=== PATIENT | female | born 1955 | race Caucasian/White ===

== ENCOUNTER 2017-02-09 18:48 | Inpatient (IN) ==
[~2017-02-09 18:48] MED LIST: *HR* Propofol 200 MG/20 ML VIAL IVP ONE
[2017-02-09] MEDS ORDERED: D5% in Water 1,000 ML IVC PRN (21:19)
[2017-02-09] MEDS ORDERED: Naloxone 0.4 MG/ML INJ IVP PRN (21:19)
[2017-02-09] MEDS ORDERED: Albuterol 2.5 MG/3 ML NEBULIZER IH PRN (21:19)
[2017-02-09] MEDS ORDERED: Ondansetron 4 MG/2 ML VIAL IVP PRN (21:19)
[2017-02-09] MEDS ORDERED: Dextrose Gel 15 GM PO PRN ×2 (21:19)
[2017-02-09] MEDS ORDERED: *HR* Dextrose 50 % in Water (Syg) 50 ML SYRINGE IVP PRN (21:19)
[2017-02-09 21:31] LABS: Hematocrit 29.8 % (35.3-44.9); Hemoglobin 9.5 g/dL (11.5-15.4); Immature Platelets 5.2 % (1.1-6.1); Mean Corpuscular HGB Conc 31.9 g/dL (31.6-35.5); Mean Corpuscular Hemoglobin 28.2 pg (28.0-33.3); Mean Corpuscular Volume 88.4 fL (83.0-100.0); Platelet Count 244 K/mcL (140-400); Red Blood Count 3.37 M/mcL (3.82-4.97); Red Cell Distribution Width 12.8 % (11.5-14.5)
[2017-02-09 21:42] LABS: Calcium 9.6 mg/dL (8.6-10.8); Potassium 4.8 mEq/L (3.5-4.5)
[2017-02-09 21:49] LABS: INR 1.4
[2017-02-09] MEDS ORDERED: Levofloxacin 750 MG/150 ML 750 MG/150 ML BAG IVPB SCH (22:00)
--- NOTE | 2017-02-09 22:17 | Internal Med History&Physical ---
Date of Encounter: 02/09/17 Time of Encounter: 21:00 Assessment and Plan (1) UGI bleed Current visit: Yes Status: Acute 1. Will trend hemoglobin levels and type/cross and hold 2 units PRBC's. 2[address] Will place on Protonix drip and keep npo. 3. Consult Dr. Casey for probable EGD -- notified. (2) Pneumonia Current visit: Yes Status: Acute 1. Patient will be placed on Levaquin for pneumonia. 2. Blood cultures drawn. 3. Respiratory support with oxygen and aerosols PRN. Qualifiers: Pneumonia type: due to unspecified organism Laterality: right Lung location: lower lobe of lung Qualified Code(s): J18.1 - Lobar pneumonia, unspecified organism (3) Acute kidney injury superimposed on CKD Current visit: Yes Status: Acute 1. Will hydrate with IVF and monitor renal function. 2. Consult nephrology for assistance and monitoring. Pt follow with Dr. Mcdonough. (4) Elevated troponin Current visit: Yes Status: Acute 1. Likely due to demand ischemia from GI blood loss. 2. We have no medication home list from patient and she is unaware of her home meds. 3. Resume home meds when verified, as appropriate, and when stable from a GI bleed standpoint. 4. Will cycle troponins, EKGs, and obtain ECHO. 5. Will monitor on telemetry. 6. Will transfuse with PRBC's if she develops angina. (5) Hypertension, uncontrolled Current visit: Yes Status: Acute 1. Will use PRN Hydralazine and monitor closely. 2. No long acting medications for now due to GI bleed and need to maintain hemodynamic stability. 3. Will need to verify home meds in the morning. (6) DVT prophylaxis Current visit: Yes Status: Acute 1. EPCD's. 2. No anti-coagulation due to GI bleed. Internal Medicine - H&P: HPI Chief complaint: chest pain; vomiting blood Admitted From: Hospital to Hospital Transfer Plans for Post Hospital Care: Home History of present illness: Ms. Calvillo is a 61 year old female who presents in transfer from [facility] in [place]. She presented there to the ER with complaints of coffee- ground emesis, chest pain, shortness of breath, and GI upset. She was found to have gastric occult positive emesis and Hemoccult positive stool. She also had troponin elevation and uncontrolled hypertension as well. Blood pressure was in excess of 200 systolic. She received Nitropaste and pain control and her blood pressure improved to 150 systolic. Once she arrived to the floor, I was summoned to her bedside immediately by her nurse. Upon my assessment of the patient, she complains of right-sided chest pain with deep inspiration and coughing. She admits to having 4 episodes of coffee- ground emesis today. She actually has dried blood around her mouth and tongue. She denies any prior history of stomach or duodenal ulcers. She does have a history of coronary disease and had a CABG about 6-7 years ago. She is a heavy smoker, but she denies any history of COPD. She has had some chills and fevers the last few days associated with her coughing and shortness of breath. She denies any vomiting or diarrhea other than her coffee-ground emesis today. I reviewed her records from [facility] and her laboratory data summarized below. Past Med Surg Social Fam HX - Past Medical History Attestation: Yes The following information was validated with the patient. Source: patient, old records reviewed Medical history: arthritis, atrial fibrillation, cancer, CHF, coronary artery disease, diabetes, GI bleed, hypertension, myocardial infarction, osteoporosis, renal disease Psychiatric history: no psych history - Past Surgical History Surgical History: cholecystectomy, coronary bypass (CABG) - Social History Smoking Status: Current every day smoker Packs per day: 1 Smokeless Tobacco Status: No Alcohol use: none Drug use: none Current living situation: Home Activity Level: Independent ambulation - Family History Mother History Unknown: Yes Father History Unknown: Yes Internal Medicine - H&P: Meds Allergies Penicillins Adverse Reaction (Severe, Verified 02/09/17 20:52) See Comments Lips swelling - Constitutional Constitutional: chills, fever(s), no night sweats - EENT Eyes: no blurry vision, no change in vision Ears: no ear pain, no tinnitus Nose, mouth and throat: no nasal congestion, no sinus pressure, no sore throat - Cardiovascular Cardiovascular ROS IM: chest pain, dyspnea, no edema, no orthopnea, no palpitations, no syncope - Respiratory Respiratory: cough, dyspnea, wheezing, pain on inspiration, chest congestion - Gastrointestinal Gastrointestinal: abdominal pain, coffee ground emesis, nausea, vomiting, no diarrhea, no hematemesis, no hematochezia, no melena - Genitourinary Genitourinary: no dysuria, no flank pain, no hematuria - Musculoskeletal Musculoskeletal ROS IM: no arthralgias, no back pain - Integumentary Integumentary IM: no rash, no jaundice - Neurological Neurological ROS: weakness, no dizziness, no focal weakness, no frequent falls - Psychiatric Psychiatric: no anxiety, no depression - Endocrine Endocrine IM: no polydipsia, no polyuria - Hematologic/Lymphatic Hematologic/Lymphatic: easy bruising, no lymphadenopathy - Allergic/Immunologic Allergic/Immunologic: wheezing, GI upset with certain foods - Constitutional General appearance: Present: disheveled, mild distress, A&O X 3 - Head Head exam: Present: atraumatic, normal inspection - Expanded Head Exam Head exam expanded: Absent: abrasion, contusion, general tenderness - Eye Eye exam: Present: EOMI, normal appearance, PERRL. Absent: scleral icterus Pupils: Present: normal accommodation - ENT ENT exam: Present: mucous membranes dry, normal oropharynx Additional comments: dried (dark) blood around blood and tongue - Neck Neck exam general surgery: Present: full ROM, supple. Absent: lymphadenopathy, tenderness, nuchal rigidity - Respiratory Respiratory exam: Present: accessory muscle use, rales (right base ), respiratory distress (splinting wiht deep inspiration), wheezes, tachypnea. Absent: chest wall tenderness - Cardiovascular Cardiovascular exam: Present: RRR, +S1, +S2, tachycardia. Absent: diastolic murmur, JVD, systolic murmur - GI/Abdominal GI/Abdominal exam: Present: soft, tenderness (mild epigastric), no peritoneal signs. Absent: guarding, hepatomegaly, mass, rebound, splenomegaly - Extremities Exam Extremities exam: Present: full ROM, warm, radial pulses palpable and symetrical. Absent: calf tenderness, joint swelling - Back Exam Back exam: Present: normal inspection. Absent: CVA tenderness (L), CVA tenderness (R) - Neurological Exam Neurological exam: Present: alert, CN II-XII intact, oriented X3, no focal deficits - Psychiatric Psychiatric exam: Present: flat affect. Absent: anxious - Skin Skin exam: Present: dry, warm. Absent: rash Additional comments: poor skin turgor Internal Med - H&P Results - Labs CBC & Chem 7: 02/09/17 21:13 02/09/17 21:13 Labs: Short CBC 02/09/17 Range/Units 21:13 WBC 12.4 H (4.3-11.1) K/mcL Hgb 9.5 L (11.5-15.4) g/dL Hct 29.8 L (35.3-44.9) % Plt Count 244 (140-400) K/mcL BMP 02/09/17 21:13 Sodium 137 Potassium 4.8 H Chloride 103 Carbon Dioxide 20 BUN 77 H Creatinine 3.59 H Glucose 263 H Calcium 9.6 Cardiac Enzymes 02/09/17 Range/Units 21:13 Troponin I 0.13 H* (0-0.03) ng/mL - EKG Data -: EKG Interpreted by Myself EKG shows normal: sinus rhythm Rate: tachycardia - EKG Data Prior EKG available for review: no EKG comments: 02/10/17 00:[address]-T changes inferiorly and high voltage with borderline criteria for LVH - Diagnostic Studies Chest x-ray Additional comments: Report reviewed from [facility] -- RLL infiltrate
[2017-02-09 22:23] LABS: Lymphocytes # 0.5 K/mcL (0.6-4.6); Neutrophils # 10.4 K/mcL (1.6-8.9); Platelet Estimate Normal (Normal)
[2017-02-09] MEDS: Ipratropium/Albuterol Neb 3 ML IH SCH (22:25)
[2017-02-09] MEDS ORDERED: Pantoprazole 40 MG VIAL ONE (22:32)
[2017-02-09] MEDS: 0.9 % Sodium Chloride 1,000 ML IVC SCH (22:42)
[2017-02-09] MEDS: Pantoprazole 40 MG in 0.9 % Sodium Chloride Mini Bag 100 ML IVC SCH (22:57)
[2017-02-09] MEDS ORDERED: 0.9 % Sodium Chloride 1,000 ML IVC ONE (23:43)
[2017-02-10] MEDS ORDERED: Magnesium Sulfate 2 GM in D5% in Water 100 ML IVPB ONE (03:56)
[2017-02-10] MEDS: Ipratropium/Albuterol Neb 3 ML IH SCH ×4 (04:30→20:43)
[2017-02-10] MEDS: Insulin LISPRO 300 UNITS/3 ML VIAL SQ SCH ×4 (04:35→20:02)
[2017-02-10] MEDS: Pantoprazole 40 MG in 0.9 % Sodium Chloride Mini Bag 100 ML IVC SCH ×4 (05:50→21:37)
[2017-02-10 06:46] LABS: Hematocrit 22.5 % (35.3-44.9); Immature Platelets 4.7 % (1.1-6.1); Lymphocytes # 0.7 K/mcL (0.6-4.6); Mean Corpuscular Hemoglobin 28.3 pg (28.0-33.3); Mean Corpuscular Volume 88.6 fL (83.0-100.0); Mean Platelet Volume 11.6 fL (9.4-12.4); Platelet Count 198 K/mcL (140-400); Red Blood Count 2.54 M/mcL (3.82-4.97); Red Cell Distribution Width 12.9 % (11.5-14.5)
[2017-02-10] MEDS: 0.9 % Sodium Chloride 1,000 ML IVC SCH ×2 (06:46→15:26)
[2017-02-10 07:09] LABS: Albumin 2.1 g/dL (3.5-5.0); Albumin/Globulin Ratio 0.5 (1.1-2.2); Bilirubin,Total 0.4 mg/dL (0.2-1.2); Calcium 9.2 mg/dL (8.6-10.8); Chol/HDL Ratio 3.6 (0-4.9); Globulin 4.1 g/dL (2.4-3.5); Magnesium 2.5 mg/dL (1.6-2.6); Potassium 4.9 mEq/L (3.5-4.5); Total Protein 6.2 g/dL (6.0-8.3)
[2017-02-10 07:21] LABS: Hemoglobin 7.2 g/dL (11.5-15.4)
[2017-02-10 07:28] LABS: Monocytes # 0.2 K/mcL (0.0-1.3); Neutrophils # 10.3 K/mcL (1.6-8.9)
[2017-02-10 07:32] LABS: Platelet Estimate Normal (Normal)
[2017-02-10] MEDS: MetroNIDAZOLE 500 MG/100 ML 500 MG/100 ML BAG IVPB SCH ×2 (08:55→19:57)
[2017-02-10 12:48] LABS: Hematocrit 24.1 % (35.3-44.9); Hemoglobin 7.6 g/dL (11.5-15.4)
[2017-02-10] MEDS ORDERED: 0.9 % Sodium Chloride 500 ML ONE ×2 (13:58→18:12)
--- NOTE | 2017-02-10 14:59 | Internal Med Progress Note ---
Date of Encounter: 02/11/17 Time of Encounter: 14:58 - Assessment and plan (1) UGI bleed Current Visit: Yes Status: Acute Assessment and plan: Drop in Hb :9.5to 7.6 [facility] PPI Drip Transfuse 2 PRBC recheck labs in AM (2) Pneumonia Current Visit: Yes Status: Acute Assessment and plan: On levofloxacin Qualifiers: Pneumonia type: due to unspecified organism Laterality: right Lung location: lower lobe of lung Qualified Code(s): J18.1 - Lobar pneumonia, unspecified organism (3) Elevated troponin Current Visit: Yes Status: Acute Assessment and plan: likely demand ischimia (4) Acute kidney injury superimposed on CKD Current Visit: Yes Status: Acute Assessment and plan: dehydration - Subjective Interval history: Patient seen and examined. Chart reviewed. Patient is sitting comfortably in a chair. Patient is short of breath. - Constitutional Vitals: Temp Pulse Resp BP Pulse Ox 97.7 F 85 16 149/64 97 02/10/17 12:11 02/10/17 12:11 02/10/17 12:11 02/10/17 12:11 02/10/17 12:11 General appearance: Present: disheveled, mild distress, A&O X 3 - Head Head exam: Present: atraumatic, normocephalic - Eye Eye exam: Present: PERRL, conjuntiva pink, sclera anicteric Pupils: Present: PERRL - Neck Neck exam general surgery: Present: supple, trachea midline. Absent: lymphadenopathy - Respiratory Respiratory exam: Present: CTAB. Absent: accessory muscle use, rales, rhonchi, wheezes - Cardiovascular Cardiovascular exam: Present: RRR, +S1, +S2. Absent: diastolic murmur, gallop, rubs, systolic murmur - GI/Abdominal GI/Abdominal exam: Present: normal bowel sounds, soft, no peritoneal signs. Absent: distended, tenderness - Extremities Exam Extremities exam: Present: warm, radial pulses palpable and symetrical. Absent : calf tenderness, cyanotic, pedal edema - Neurological Exam Neurological exam: Present: CN II-XII intact, oriented X3, no focal deficits. Absent: pronater drift, facial droop, speech deficit - Skin Skin exam: Present: dry, intact Internal Medicine: Result - Labs CBC & Chem 7: 02/11/17 03:52 02/11/17 03:52 Labs: Short CBC 02/09/17 02/10/17 02/10/17 Range/Units 21:13 05:45 12:28 WBC 12.4 H 11.7 H (4.3-11.1) K/mcL Hgb 9.5 L 7.2 L D 7.6 L (11.5-15.4) g/dL Hct 29.8 L 22.5 L 24.1 L (35.3-44.9) % Plt Count 244 198 (140-400) K/mcL Neutrophils # 10.4 H 10.3 H (1.6-8.9) K/mcL BMP 02/09/17 02/10/17 21:13 05:45 Sodium 137 137 Potassium 4.8 H 4.9 H Chloride 103 109 Carbon Dioxide 20 15 L BUN 77 H 81 H Creatinine 3.59 H 3.66 H Glucose 263 H 270 H Calcium 9.6 9.2 Cardiac Enzymes 02/09/17 02/10/17 02/10/17 Range/Units 21:13 05:45 12:05 Troponin I 0.13 H* 0.10 H* 0.11 H* (0-0.03) ng/mL Liver Function 02/10/17 Range/Units 05:45 Total Bilirubin 0.4 (0.2-1.2) mg/dL AST 11 (5-34) Units/L ALT 7 (0-55) Units/L Alkaline Phosphatase 54 (38-126) Units/L Albumin 2.1 L (3.5-5.0) g/dL - ABG Interpretation ABG results: PT/INR, D-dimer PT 15.0 Seconds (9.4-12.1) H 02/09/17 21:13 Consult Discharge Plan - Plan Referrals: NO,PCP [Primary Care Provider] -
--- NOTE | 2017-02-10 16:59 | ECHO - Doppler Report ---
Echocardiogram Name: Shahida Calvillo Date of Study: 02/10/2017 Date: 1955 Ht: 62.0 in Medical Record#: [id number] Age: 61 Wt: 162.0 lb Gender: Female BSA: 1.75 Order #: [id number] Location: [facility] Room #: 2NE23 Reading Physician: Ramy Parrish DO, MONSERRAT, DIEGO SONI Assistant Corporate Secretary: Yelena Banuelos RDCS Ordering Physician: Breezy Calix MD Primary Physician: None Indications: Chest pain Impressions: LVEF 55-60%. Normal LV chamber size and wall thickness. Basal inferior segment appears mildly hypokinetic. Otherwise, normal LV systolic dysfunction. Atypical septal motion consistent with post-operative status. Moderate left ventricular diastolic dysfunction. Normal right ventricular structure and function. Mild-moderate mitral regurgitation. No evidence of pulmonary hypertension. Left Ventricular Wall Motion: Rest Echo Findings The basal inferior wall was hypokinetic. All other wall segments showed normal motion. Findings: Study Quality * Technically adequate exam. ECG Findings * Normal sinus rhythm. Left Ventricle * LVEF 55-60%. * Normal LV chamber size and wall thickness. * Basal inferior segment appears mildly hypokinetic. Otherwise, normal LV systolic dysfunction. * Atypical septal motion consistent with post-operative status. * Moderate left ventricular diastolic dysfunction. Right Ventricle * Normal right ventricular structure and function. Left Atrium * Mildly dilated left atrium. Right Atrium * Normal right atrial size. Interatrial Septum * No evidence of PFO by color Doppler. Aortic Valve * Trileaflet aortic valve. * Mildly sclerotic aortic valve leaflets. * No aortic regurgitation. * No aortic stenosis. Mitral Valve * Mildly thickened mitral valve leaflets and subvalvular apparatus. * Mild-moderate mitral regurgitation. * No mitral stenosis. Tricuspid Valve * Normal tricuspid valve structure and function. * Trace tricuspid regurgitation. * No evidence of pulmonary hypertension. Pulmonic Valve * Normal pulmonic valve structure and function. * Trace pulmonic regurgitation. Aorta * Normally sized aortic root. Pericardium * The pericardium appears normal. IVC * Normal IVC dimensions and inspiratory collapse. Pulmonary Artery * Normal visualized portions of the main pulmonary artery. History Hypertension Diabetes Hypercholesteremia Years 33 Packs 1 Family History of CAD History of CAD/PTCA Myocardial Infarction Coronary Artery Bypass Graft Congestive Heart Failure Measurements: BP: 139/ 73 2D Normal Values RVIDd: 3.70 cm <2.7 cm IVSd: 1.00 cm 0.6 - 1.0 cm LVIDd: 5.50 cm 3.7 - 5.6 cm LVPWd: 1.10 cm 0.6 - 1.1 cm LVIDs: 4.20 cm 1.5 - 3.6 cm AO: 2.70 cm < 4.0 cm LA: 4.10 cm 2.0 - 4.0cm %FS: 23.60 cm >25 % LVOT Diam: 2.00 cm LA volume: 48 Mitral Valve Peak E:1.25 m/sec Peak A:.99 m/sec E/A Ratio:1.3 Peak E' Lat Camron:6.59 cm/s Peak E' Med Camron:5 cm/s E/E' Lat Ratio:19 E/E' Med Ratio:25 Tricuspid Valve TV Regurg Peak Grad: 28.00mmHg TV Regurg Peak Camron: 2.66m/sec Updated by Ramy Parrish DO, FACChristopher, DIEGO SONI on 02/10/2017 4:55:43 PM electronically signed on 02/10/2017 4:56:04 PM with status of Final Wall Motion [place]: 1=Normal, 2=Hypokinesis, 3=Akinesis, 4=Dyskinesis, 5=Aneurysmal, 6=Hyperkinetic, X=Not Visualized (Blank)=Missing
[2017-02-11] MEDS: *HR* Morphine 2 MG/ML SYRINGE IVP PRN ×3 (00:08→14:14)
[2017-02-11] MEDS: MetroNIDAZOLE 500 MG/100 ML 500 MG/100 ML BAG IVPB SCH ×3 (00:09→17:49)
[2017-02-11] MEDS: Pantoprazole 40 MG in 0.9 % Sodium Chloride Mini Bag 100 ML IVC SCH ×4 (00:24→20:36)
[2017-02-11] MEDS: Insulin LISPRO 300 UNITS/3 ML VIAL SQ SCH ×4 (00:25→17:58)
[2017-02-11] MEDS: 0.9 % Sodium Chloride 1,000 ML IVC SCH ×2 (03:35→17:51)
[2017-02-11] MEDS: Ipratropium/Albuterol Neb 3 ML IH SCH ×4 (03:59→22:47)
[2017-02-11 04:50] LABS: Hematocrit 33.7 % (35.3-44.9); Mean Corpuscular HGB Conc 31.5 g/dL (31.6-35.5); Mean Corpuscular Hemoglobin 27.6 pg (28.0-33.3); Mean Corpuscular Volume 87.8 fL (83.0-100.0); Mean Platelet Volume 11.2 fL (9.4-12.4); Platelet Count 224 K/mcL (140-400); Red Blood Count 3.84 M/mcL (3.82-4.97); Red Cell Distribution Width 13.4 % (11.5-14.5)
[2017-02-11 05:07] LABS: Albumin 2.2 g/dL (3.5-5.0); Albumin/Globulin Ratio 0.5 (1.1-2.2); Bilirubin,Total 0.6 mg/dL (0.2-1.2); Calcium 9.6 mg/dL (8.6-10.8); Globulin 4.5 g/dL (2.4-3.5); Potassium 5.2 mEq/L (3.5-4.5); Total Protein 6.7 g/dL (6.0-8.3)
[2017-02-11 05:14] LABS: Hemoglobin 10.6 g/dL (11.5-15.4)
[2017-02-11 05:19] LABS: Lymphocytes # 1.4 K/mcL (0.6-4.6); Monocytes # 0.8 K/mcL (0.0-1.3); Platelet Estimate Normal (Normal)
[2017-02-11] MEDS ORDERED: Levofloxacin 750 MG/150 ML 750 MG/150 ML BAG IVPB SCH ×2 (09:00→22:00)
--- NOTE | 2017-02-11 09:26 | Electrocardiograph Report ---
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
--- NOTE | 2017-02-11 09:29 | Electrocardiograph Report ---
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
--- NOTE | 2017-02-11 11:19 | Gastroenterology Consult Note ---
<Kamla Redd - Last Filed: 02/11/17 11:16> Date of Encounter: 02/11/17 Time of Encounter: 10:30 - Assessment and plan (1) UGI bleed Current Visit: Yes Status: Acute Assessment and plan: EGD today to r/o esophagitis, gastritis, duodenitis, MW tear, PUD, tumor, polyp , varices. Continue PPI gtt. (2) Elevated troponin Current Visit: Yes Status: Acute - Time Spent With Patient Total time spent is greater than 50% in coordination of care (as documented) at patient's floor/unit and/or counseling patient: less than 15 minutes GI History of Present Illness - Data of Consult Patient: new to practice Consult date: 02/11/17 Requesting Physician: Alec Hassan MD - Consult Narrative Reason for consult: coffee ground emesis, anemia History of present illness: Ms. Calvillo is a 61 year old female with a PMH of a fib, CAD, MS, CABG, CHF, CKD, HTN who presented overnight in transfer from [facility] in [place]. She presented there to the ER with complaints of coffee-ground emesis, chest pain, shortness of breath, and GI upset. She was found to have gastric occult positive emesis and Hemoccult positive stool. She also had troponin elevation and uncontrolled hypertension as well. Blood pressure was in excess of 200 systolic. She received Nitropaste and pain control and her blood pressure improved to 150 systolic. Admits four episodes of coffeeground emesis yesterday , none since she was admitted. Symptoms began Saturday morning with weakness, vomiting and diarrhea. Prior to that her BM was regular, daily, but her appetite has been slightly off. She reached a low hgb of 7.2, received 2 units PRBC, currently at 10.6. She has elevated troponin level which hospitalist indicates likely demand ischemia. Edema in upper and lower extremities. Patient was asked about prior Cscope, EGD - she states never had same and adamantly indicates she does NOT want a colonoscopy. Colonoscopy: None EGD: None Past Med Surg Social Fam HX - Past Medical History Medical history: arthritis, atrial fibrillation, cancer, CHF, coronary artery disease, diabetes, GI bleed, hypertension, myocardial infarction, osteoporosis, renal disease Psychiatric history: no psych history - Past Surgical History Surgical History: cholecystectomy, coronary bypass (CABG) - Social History Smoking Status: Current every day smoker Packs per day: 1 Smokeless Tobacco Status: No Alcohol use: none Drug use: none - Family History Mother History Unknown: Yes Father History Unknown: Yes - Gastrointestinal NSAID use: baby asa Anticoagulation Use: None noted Number of BM Per Day: daily Gastrointestinal: Present: change in bowel habits, coffee ground emesis, diarrhea, nausea, vomiting - Constitutional Constitutional: anorexia - EENT Eyes: as per HPI Ears: Present: as per HPI Nose, mouth and throat: Present: as per HPI - Cardiovascular Cardiovascular ROS: Present: as per HPI - Respiratory Respiratory IM: Present: as per HPI - Neurological ROS Neurological GI: Present: weakness - Hematologic/Lymphatic Hematologic/Lymphatic pediatric: Present: as per HPI - Musculoskeletal Musculoskeletal ROS GI: Present: as per HPI - Integumentary Integumentary GI: Present: as per HPI - Psychiatric ROS Psychiatric GI: Present: as per HPI - Endocrine Endocrine IM: Present: as per HPI - Constitutional Vitals: Temp Pulse Resp BP Pulse Ox 97.5 F L 122 16 154/88 95 02/11/17 07:00 02/11/17 07:00 02/11/17 10:53 02/11/17 07:00 02/11/17 10:53 General appearance: Present: cooperative, A&O X 3, no acute distress, answers questions appropriately - Head Head exam: Present: atraumatic, normocephalic - Eye Eye exam: Present: normal appearance, sclera anicteric - ENT ENT exam: Present: mucous membranes moist - Neck Neck exam general surgery: Present: normal inspection, trachea midline - Respiratory Respiratory exam: Present: CTAB - Cardiovascular Cardiovascular exam: Present: RRR, +S1, +S2 - GI/Abdominal GI/Abdominal exam: Present: soft, tenderness, no peritoneal signs - Rectal Rectal exam: Present: deferred - Extremities Exam Extremities exam: Present: joint swelling, pedal edema - Neurological Exam Neurological exam: Present: no focal deficits - Psychiatric Psychiatric exam: Present: normal affect, normal mood - Skin Skin exam: Present: dry, intact, normal color, warm Results - Labs CBC & Chem 7: 02/11/17 03:52 02/11/17 03:52 Labs: Last Result Calcium 9.6 mg/dL (8.6-10.8) 02/11/17 03:52 Troponin I 0.11 ng/mL (0-0.03) H* 02/10/17 12:05 Triglycerides 81 mg/dL (< 150) 02/10/17 05:45 Entire Visit Hgb 10.6 g/dL (11.5-15.4) L D 02/11/17 03:52 Hct 33.7 % (35.3-44.9) L 02/11/17 03:52 PT 15.0 Seconds (9.4-12.1) H 02/09/17 21:13 Total Bilirubin 0.6 mg/dL (0.2-1.2) 02/11/17 03:52 AST 19 Units/L (5-34) 02/11/17 03:52 ALT 10 Units/L (0-55) 02/11/17 03:52 - ABG ABG results: PT/INR, D-dimer PT 15.0 Seconds (9.4-12.1) H 02/09/17 21:13 Consult Discharge Plan - Plan Referrals: NO,PCP [Primary Care Provider] - <Miles Melvin - Last Filed: 02/11/17 17:16> Date of Encounter: 02/11/17 Time of Encounter: 13:00 - Time Spent With Patient Total time spent is greater than 50% in coordination of care (as documented) at patient's floor/unit and/or counseling patient: GI History of Present Illness - Data of Consult Requesting Physician: Alec Hassan MD - Consult Narrative History of present illness: Ms. Calvillo is a 61 year old female - Constitutional Vitals: Temp Pulse Resp BP Pulse Ox 97.5 F L 96 18 152/87 95 02/11/17 15:00 02/11/17 15:00 02/11/17 15:00 02/11/17 15:00 02/11/17 15:00 Results - Labs CBC & Chem 7: 02/11/17 03:52 02/11/17 03:52 Labs: Last Result Calcium 9.6 mg/dL (8.6-10.8) 02/11/17 03:52 Iron 9 mcg/dL (50-170) L 02/09/17 21:13 % Saturation 3 % (15-50) L 02/09/17 21:13 Transferrin 205 mg/dL (180-382) 02/09/17 21:13 Troponin I 0.11 ng/mL (0-0.03) H* 02/10/17 12:05 Triglycerides 81 mg/dL (< 150) 02/10/17 05:45 Entire Visit Hgb 10.6 g/dL (11.5-15.4) L D 02/11/17 03:52 Hct 33.7 % (35.3-44.9) L 02/11/17 03:52 PT 15.0 Seconds (9.4-12.1) H 02/09/17 21:13 Total Bilirubin 0.6 mg/dL (0.2-1.2) 02/11/17 03:52 AST 19 Units/L (5-34) 02/11/17 03:52 ALT 10 Units/L (0-55) 02/11/17 03:52 - ABG ABG results: PT/INR, D-dimer PT 15.0 Seconds (9.4-12.1) H 02/09/17 21:13 - Attending Attestation I examined this patient and my medical decision-making was reviewed with the WEB DATABASE DEVELOPER/PA/Advanced Practice Nurse/Resident Physician. I agree with the documented findings, disposition and treatment plan as described except to the extent set forth below.
--- NOTE | 2017-02-11 12:31 | Anesthesia Evaluation PreOp ---
Date of Encounter: 02/11/17 Time of Encounter: 12:28 - Past History Planned Operation: EGD re: admission for UGI bleed & CP Cardiac History: PA (Troponin bump to 0.11 this hospitalization beleived to be secondary to Demand Ischemia from GIB), CHF (maintained on Lasix), HTN ( maintained on Cozaar, Carvedilol), Hyperlipidemia (maintained on Crestor), Arrhythmia (Hx of paroxysmal AFib - currently AFib w/RVR. Anticoagulated w/ASA) , Cardiac Surgery (CABG), Other (02/09/2017 ECHO - LVEF 55-60%. Mildly hypokinetic vasal inferior segment, atypical septal motion c/w post-op status. Mild-mod MR. No evidence fo PulmHtn) Pulmonary History: Smoker (1ppd x 45years), COPD, Other (Recent Pneumonia this admission) PROFESSOR OF PHILOSOPHY History: Denies Any Significant HX Other Medical History: Renal (Acute on Chronic CKD), Diabetes Type II ( maintained on Tradjenta, Actos, and possibly others), Other (Hx of Cancer) Anesthesia History: No Prior Anesthetic Complications, Past Anesthesia (CABG, Brittani) Alcohol Use: none Drug use: none Medications and Allergies Aspirin Enteric Coated [Aspirin EC] 81 mg PO DAILY 02/10/17 [History] Calcitriol [Rocaltrol] 0.25 mcg PO DAILY 02/10/17 [History] Carvedilol [Coreg] 25 mg PO DAILY 02/10/17 [History] Cyanocobalamin (Vitamin B-12) [Vitamin B-12] 100 mcg PO DAILY 02/10/17 [History] Ergocalciferol (VITAMIN D2) [Vitamin D] 800 unit PO DAILY 02/10/17 [History] Furosemide [Lasix] 20 mg PO BID 02/10/17 [History] Linagliptin [Tradjenta] 5 mg PO DAILY 02/10/17 [History] Losartan Potassium [Cozaar] 100 mg PO DAILY 02/10/17 [History] Pioglitazone [Actos] 15 mg PO 0800 02/10/17 [History] Rosuvastatin Calcium [Crestor] 5 mg PO HS 02/10/17 [History] Allergies Penicillins Adverse Reaction (Severe, Verified 02/09/17 20:52) See Comments Lips swelling - Meds/Allergy Pre-op Review Medications Reviewed: Yes Allergies Reviewed: Yes Beta Blockers on Current Med List: Yes (Metoprolol) If Beta Blockers taken, Date/Time (Last Dose taken): 02/11/2017 @ 0746 Anesthesia Results - Labs 02/11/17 03:52 02/11/17 03:52 Laboratory Tests 02/09/17 02/09/17 02/09/17 21:13 21:13 21:13 PT 15.0 H INR 1.4 APTT 27.0 POC Glucose Calcium Magnesium Iron 9 L % Saturation 3 L Troponin I 0.13 H* 02/10/17 02/10/17 02/11/17 05:45 05:45 03:52 PT INR APTT POC Glucose Calcium 9.6 Magnesium 2.5 Iron % Saturation Troponin I 0.10 H* 02/11/17 05:50 PT INR APTT POC Glucose 152 H Calcium Magnesium Iron % Saturation Troponin I Laboratory Results - Imaging EKG: image reviewed Anesthesia Exam Vital Signs Temp Pulse Resp BP Pulse Ox 02/11/17 10:53 16 95 02/11/17 07:00 97.5 F L 122 16 154/88 98 02/11/17 04:01 20 02/11/17 03:00 98.6 F 118 20 141/96 96 02/10/17 20:45 18 99 02/10/17 19:30 100 02/10/17 18:56 97.8 F 86 14 153/70 100 02/10/17 18:39 97.6 F 89 14 161/71 96 02/10/17 18:37 97.6 F 89 14 161/71 95 02/10/17 18:26 97.4 F L 86 14 152/70 96 02/10/17 18:11 97.4 F L 86 14 152/70 96 02/10/17 16:20 97.2 F L 80 136/68 97 02/10/17 15:59 98.7 F 83 16 151/68 96 02/10/17 15:53 18 97 02/10/17 15:20 97.0 F L 79 14 144/82 02/10/17 15:05 97.6 F 89 14 138/61 Intake and Output 02/10/17 02/11/17 02/11/17 23:59 07:59 15:59 Intake Total 1900 / 1900 200 / 200 Output Total 400 / 400 500 / 500 Balance 1500 / 1500 -300 / -300 Intake: IV Fluids 1200 / 1200 200 / 200 0.9 % Sodium Chloride 1, 1000 / 1000 000 ML @ 150 mls/hr IVC . Q6H40M DIANE Rx#:[id number] Protonix 40 MG In 0.9 % 100 / 100 100 / 100 Sodium Chloride (Mini-Bag +) 100 ML @ 20 mls/hr IVC .Q5H DIANE Rx#: [id number] Flagyl 500 MG/100 ML 500 100 / 100 100 / 100 mg In 100 ml @ 100 mls/hr IVPB Q8HR DIANE Rx#: [id number] Oral 0 / 0 Blood Product 700 / 700 Rbcs Leuko Poor As-1 350 / 350 Unit [id number] Rbcs Leuko Poor As-1 350 / 350 Unit [id number] Output: Catheter 400 / 400 500 / 500 Other: Weight 74.9 kg Blood Glucose* 189 152 138 Patient Weight 02/11/17 23:59 Weight 74.9 kg Height: 5'2" Weight: 165# BMI = 30 NPO (# of Hours): MNoc - HEENT Pupil (Motor): Pupils equal, EOMI Mallampati: III Teeth: Edentulous (upper. Dark dried blood noted on mucosal surfaces), Poor dentition Oral Opening: Greater than 3 - PROFESSOR OF PHILOSOPHY LOC: Oriented PROFESSOR OF PHILOSOPHY Motor: Normal RUE, Normal LUE, Normal RLE, Normal LLE, Normal Face PROFESSOR OF PHILOSOPHY Sensory: Normal: RUE, LUE, RLE, LLE, Face - Cardiac Rhythm: Irregular JVD: No - Pulmonary Breath Sounds: bilateral Clear (faint inspiratory/exportary crackles and diminished B-bases) Respiratory Effort: Symmetrical Anesthesia Assess/Plan ASA Score: 4 (GIB, CAD, HTN, Chol, Smoker, COPD, DM, Acute on Chronic CKD) Monitoring Plan: Standard Monitors Recovery Plan: PACU Anes Supervising Prov Stmt: Pt seen/evaluated, R&B discussed, questions answered and consent obtained. Adrian Groves MD
[2017-02-11] MEDS ORDERED: *HR* Labetalol 20 MG/4 ML SYRINGE IVP ONE ×2 (12:49→12:53)
[2017-02-11] MEDS ORDERED: Simethicone 40 MG/0.6 ML MLS IR ONE (13:10)
[2017-02-11] MEDS ORDERED: Tetracaine/Benzocaine/Butamben 200MG/SPRAY (100SPY/BOT) MM ONE (13:10)
--- NOTE | 2017-02-11 16:37 | Internal Med Progress Note ---
Date of Encounter: 02/11/17 Time of Encounter: 16:34 - Assessment and plan (1) UGI bleed Current Visit: Yes Status: Acute Assessment and plan: Drop in Hb :9.5to 7.6 Endoscopist notified by night team On PPI Drip Transfuse 2 PRBC recheck labs in AM 02/11/2017 Patient underwent EGD. Motor the patient has multiple ulcers. Patient is on PPI drip. Patient is on appropriate medication. Plan -We will continue to monitor her hemoglobin/hematocrit. -Patient did not have of every 6 hours. (2) Atrial fibrillation with RVR Current Visit: Yes Status: Acute Assessment and plan: Good the patient is in rapid ventricular rate associated with the atrial fibrillation. She is on Cardizem drip. Her heart rate is well controlled. No anticoagulation as patient has coffee-ground emesis Plan Continue Cardizem drip. Titrated down. (3) Pneumonia Current Visit: Yes Status: Acute Assessment and plan: Noted that patient has a right lower lobe pneumonia. She is on levofloxacin. Today is day 2 of levofloxacin. Qualifiers: Pneumonia type: due to unspecified organism Laterality: right Lung location: lower lobe of lung Qualified Code(s): J18.1 - Lobar pneumonia, unspecified organism (4) Elevated troponin Current Visit: Yes Status: Acute Assessment and plan: likely demand ischimia (5) Acute kidney injury superimposed on CKD Current Visit: Yes Status: Acute Assessment and plan: Patient is known to have a chronic kidney disease. She received IV fluids. There is no change in her creatinine. I have informed patient's primary catalogue and special products manager Dr. Gonzalez - Subjective Interval history: Patient seen and examined. Chart reviewed. Patient is sitting comfortably in a chair. Patient is short of breath. 02/11/2017 Patient seen and examined. Chart reviewed. Patient sitting comfortably in chair. Patient underwent EGD. Patient denies any coffee-ground emesis. - Constitutional Vitals: Temp Pulse Resp BP Pulse Ox 97.5 F L 96 18 152/87 95 02/11/17 15:00 02/11/17 15:00 02/11/17 15:00 02/11/17 15:00 02/11/17 15:00 General appearance: Present: disheveled, mild distress, A&O X 3 - Head Head exam: Present: atraumatic, normocephalic - Eye Eye exam: Present: PERRL, conjuntiva pink, sclera anicteric Pupils: Present: PERRL - Neck Neck exam general surgery: Present: supple, trachea midline. Absent: lymphadenopathy - Respiratory Respiratory exam: Present: CTAB. Absent: accessory muscle use, rales, rhonchi, wheezes - Cardiovascular Cardiovascular exam: Present: RRR, +S1, +S2. Absent: diastolic murmur, gallop, rubs, systolic murmur - GI/Abdominal GI/Abdominal exam: Present: normal bowel sounds, soft, no peritoneal signs. Absent: distended, tenderness - Extremities Exam Extremities exam: Present: warm, radial pulses palpable and symetrical. Absent : calf tenderness, cyanotic, pedal edema - Neurological Exam Neurological exam: Present: CN II-XII intact, oriented X3, no focal deficits. Absent: pronater drift, facial droop, speech deficit - Skin Skin exam: Present: dry, intact Internal Medicine: Result - Labs CBC & Chem 7: 02/11/17 03:52 02/11/17 03:52 Labs: Short CBC 02/11/17 Range/Units 03:52 WBC 13.7 H (4.3-11.1) K/mcL Hgb 10.6 L D (11.5-15.4) g/dL Hct 33.7 L (35.3-44.9) % Plt Count 224 (140-400) K/mcL Neutrophils # 11.0 H (1.6-8.9) K/mcL BMP 02/11/17 03:52 Sodium 137 Potassium 5.2 H Chloride 109 Carbon Dioxide 14 L BUN 87 H Creatinine 3.45 H Glucose 142 H Calcium 9.6 Liver Function 02/11/17 Range/Units 03:52 Total Bilirubin 0.6 (0.2-1.2) mg/dL AST 19 (5-34) Units/L ALT 10 (0-55) Units/L Alkaline Phosphatase 70 (38-126) Units/L Albumin 2.2 L (3.5-5.0) g/dL - ABG Interpretation ABG results: PT/INR, D-dimer PT 15.0 Seconds (9.4-12.1) H 02/09/17 21:13 Consult Discharge Plan - Plan Referrals: NO,PCP [Primary Care Provider] -
[2017-02-12] MEDS: MetroNIDAZOLE 500 MG/100 ML 500 MG/100 ML BAG IVPB SCH ×2 (00:57→08:21)
[2017-02-12] MEDS: Pantoprazole 40 MG in 0.9 % Sodium Chloride Mini Bag 100 ML IVC SCH ×2 (00:58→06:10)
[2017-02-12] MEDS: Insulin LISPRO 300 UNITS/3 ML VIAL SQ SCH ×4 (01:04→21:48)
[2017-02-12] MEDS: Ipratropium/Albuterol Neb 3 ML IH SCH ×4 (04:01→21:17)
[2017-02-12 06:22] LABS: Hematocrit 35.2 % (35.3-44.9); Hemoglobin 11.4 g/dL (11.5-15.4); Mean Corpuscular HGB Conc 32.4 g/dL (31.6-35.5); Mean Corpuscular Hemoglobin 27.8 pg (28.0-33.3); Mean Corpuscular Volume 85.9 fL (83.0-100.0); Mean Platelet Volume 11.3 fL (9.4-12.4); Nucleated Red Blood Cells 0.1 /100 WBC (0); Platelet Count 192 K/mcL (140-400); Red Cell Distribution Width 13.8 % (11.5-14.5)
[2017-02-12 06:36] LABS: Albumin 2.1 g/dL (3.5-5.0); Albumin/Globulin Ratio 0.5 (1.1-2.2); Bilirubin,Total 0.6 mg/dL (0.2-1.2); Calcium 8.7 mg/dL (8.6-10.8); Globulin 4.1 g/dL (2.4-3.5); Total Protein 6.2 g/dL (6.0-8.3)
[2017-02-12 07:24] LABS: Lymphocytes # 0.8 K/mcL (0.6-4.6); Neutrophils # 14.9 K/mcL (1.6-8.9); Platelet Estimate Normal (Normal)
[2017-02-12 07:37] LABS: ABG Base Excess -11.8 mEq/L (-2.0 to 3.0); ABG HCO3 13.5 mEQ/L (21-27); ABG Oxygen Saturation 89 % (95-98); ABG PCO2 28 mmHg (35-45); ABG PH 7.29 pH Units (7.32-7.45); ABG PO2 63 mmHg (85-104); ABG TCO2 14.4 mEq/L (20-26)
[2017-02-12 07:38] LABS: Blood Gas FiO2 28 %
--- NOTE | 2017-02-12 08:23 | Nephrology Consult Note ---
Date of Encounter: 02/12/17 Time of Encounter: 08:20 Assessment and Plan (1) Acute kidney injury superimposed on CKD Current Visit: Yes Status: Acute The patient has a clinical picture of acute kidney injury superimposed on stage IV chronic kidney disease in the setting of an upper GI bleed and subsequent anemia. She also has had issues with atrial fibrillation with rapid ventricular response. Today her renal function is improving. She does exhibit a worsening non-anion gap metabolic acidosis. Etiology is unclear. Oral sodium bicarbonate has been ordered. We will place the patient on some IV sodium bicarbonate as well. I am going to recheck her bicarbonate level just to make sure that it is accurate. (2) UGI bleed Current Visit: Yes Status: Acute (3) Hypertension, uncontrolled Current Visit: Yes Status: Acute (4) Atrial fibrillation with RVR Current Visit: Yes Status: Acute History of Present Illness - History of Present Illness This is a 61-year-old female who is followed as an outpatient for stage IV chronic kidney disease. Patient was admitted on February 09 with an upper GI bleed. Hemoglobin was down to 7.6. She subsequently had acute kidney injury superimposed on chronic kidney disease. Her creatinine peaked at 3.662 days ago. Today her creatinine is down to 2.78. Patient reports overall she is feeling well. She denies any nausea vomiting abdominal pain heartburn or indigestion. History today she did have issues with A. fib with a rapid ventricular response. She currently is on a Cardizem drip and also a Protonix drip. She did undergo an EGD. Esophagus was normal. Nonbleeding gastric ulcers were noted. Hemoglobin currently is 11.4. She does have a worsening non -anion gap metabolic acidosis on her blood work today. Past Med Surg Social Fam HX - Past Medical History Medical history: arthritis, atrial fibrillation, cancer, CHF, coronary artery disease, diabetes, GI bleed, hypertension, myocardial infarction, osteoporosis, renal disease Psychiatric history: no psych history - Past Surgical History Surgical History: cholecystectomy, coronary bypass (CABG) - Social History Smoking Status: Current every day smoker Packs per day: 1 Smokeless Tobacco Status: No Alcohol use: none Drug use: none - Family History Mother History Unknown: Yes Father History Unknown: Yes Medications and Allergies Aspirin Enteric Coated [Aspirin EC] 81 mg PO DAILY 02/10/17 [History] Calcitriol [Rocaltrol] 0.25 mcg PO DAILY 02/10/17 [History] Carvedilol [Coreg] 25 mg PO DAILY 02/10/17 [History] Cyanocobalamin (Vitamin B-12) [Vitamin B-12] 100 mcg PO DAILY 02/10/17 [History] Ergocalciferol (VITAMIN D2) [Vitamin D] 800 unit PO DAILY 02/10/17 [History] Furosemide [Lasix] 20 mg PO BID 02/10/17 [History] Linagliptin [Tradjenta] 5 mg PO DAILY 02/10/17 [History] Losartan Potassium [Cozaar] 100 mg PO DAILY 02/10/17 [History] Pioglitazone [Actos] 15 mg PO 0800 02/10/17 [History] Rosuvastatin Calcium [Crestor] 5 mg PO HS 02/10/17 [History] Allergies Penicillins Adverse Reaction (Severe, Verified 02/09/17 20:52) See Comments Lips swelling Review of Systems Constitutional: no excessive sweating, no weight loss Eyes: bilateral: blurred vision (patient denies), diplopia (patient denies) Nose, mouth and throat: no dizziness, no headache(s) Cardiovascular: as per HPI, dyspnea on exertion Respiratory: dyspnea on exertion Gastrointestinal: as per HPI, hematemesis, vomiting Musculoskeletal: no muscle weakness, no numbness Integumentary: no hirsutism, no striae Neurological: as per HPI Psychiatric: no depression, no difficulty concentrating Endocrine: as per HPI Hematologic/Lymphatic: no easy bruising, no lymphadenopathy Exam - Vital Signs Vital signs: Initial Vital Signs Temp Pulse Resp BP Pulse Ox 98.8 F 109 20 146/57 93 02/09/17 20:40 02/09/17 20:40 02/09/17 20:40 02/09/17 20:40 02/09/17 20:40 Vital Signs - Last 8 Hours Temp Pulse Resp BP Pulse Ox 02/12/17 08:07 98.3 F 103 22 160/76 02/12/17 04:55 98.2 F 105 20 141/95 95 02/12/17 04:02 20 96 02/12/17 01:03 98.9 F 88 16 154/74 96 Intake and Output 02/11/17 02/12/17 02/12/17 23:59 07:59 15:59 Intake Total 260 / 260 200 / 200 Output Total 900 / 900 Balance 260 / 260 -700 / -700 Intake: IV Fluids 200 / 200 200 / 200 Protonix 40 MG In 0.9 % 100 / 100 200 / 200 Sodium Chloride (Mini-Bag +) 100 ML @ 20 mls/hr IVC .Q5H DIANE Rx#: [id number] Flagyl 500 MG/100 ML 500 100 / 100 mg In 100 ml @ 100 mls/hr IVPB Q8HR DIANE Rx#: [id number] Oral 60 / 60 Output: Catheter 900 / 900 Other: Meal Dinner Percent of Meal Consumed 25% Blood Glucose* 186 127 - General Appearance Exam: Patient is sitting up in a chair. She is alert and oriented and in no acute distress. Vital signs are stable. Neck is supple. Lungs diminished breath sounds otherwise clear. No wheezing rales or rhonchi. Heart demonstrates an irregular rate and rhythm. Heart monitors consistent with atrial fibrillation. Abdomen shows normal bowel sounds of bruits masses organomegaly or tenderness. Lower extremities show mild lower extremity swelling. Results - Lab Results 02/12/17 05:23 02/12/17 05:23 Most recent lab results ABG pH 7.29 pH Units (7.32-7.45) L 02/12/17 07:29 ABG pCO2 28 mmHg (35-45) L 02/12/17 07:29 ABG pO2 63 mmHg (85-104) L 02/12/17 07:29 ABG HCO3 13.5 mEQ/L (21-27) L 02/12/17 07:29 ABG O2 Saturation 89 % (95-98) L 02/12/17 07:29 Calcium 8.7 mg/dL (8.6-10.8) 02/12/17 05:23 Magnesium 1.8 mg/dL (1.6-2.6) 02/10/17 Unknown Consult Discharge Plan - Plan Referrals: NO,PCP [Primary Care Provider] -
[2017-02-12] MEDS ORDERED: Sodium Bicarbonate 100 MEQ in 0.45 % Sodium Chloride 1,000 ML IVC SCH (08:30)
[2017-02-12 09:22] LABS: Calcium 8.9 mg/dL (8.6-10.8); Phosphorous 3.1 mg/dL (2.3-4.7)
[2017-02-12 09:33] LABS: Potassium 4.8 mEq/L (3.5-4.5)
--- NOTE | 2017-02-12 09:52 | Internal Med Progress Note ---
<Yamileth Aguiar - Last Filed: 02/12/17 17:22> Date of Encounter: 02/12/17 Time of Encounter: 08:50 - Assessment and plan (1) Metabolic acidosis with normal anion gap and failure of bicarbonate regeneration Current Visit: Yes Status: Acute Assessment and plan: Pre-existing CKDIV, due to GIB was started on IVF for volume support. She would undergo progressive hyperchloremic NAGMA. 02/12/17 IVF dc'd. Starting sodium bicarb tablets. Appreciate nephrology recs, also on IV bicarb. Cont to monitor. (2) UGI bleed Current Visit: Yes Status: Acute Assessment and plan: Clinical impression UGIB gross hematemesis. 02/11/2017 EGD with gastric ulcer, no stigmata active bleed. Cont PPI, Carafate. (3) Pneumonia Current Visit: Yes Status: Acute Assessment and plan: Noted that patient has a right lower lobe pneumonia. She is on levofloxacin. Today is day 3 of levofloxacin. Qualifiers: Pneumonia type: due to unspecified organism Laterality: right Lung location: lower lobe of lung Qualified Code(s): J18.1 - Lobar pneumonia, unspecified organism (4) Acute kidney injury superimposed on CKD Current Visit: Yes Status: Acute Assessment and plan: CKDIV followed by Dr. Mcdonough, appreciate recs. - Subjective Interval history: Pt seen/eval, affirms events prompting hospitalization. CKD IV followed by senior sharepoint developer Dr. Jj Mcdonough. Admitted for concern UGIB, with endoscopy disclosing nonbleeding ulcer. Interval she would have progressive NAGMA, would start this morning on sodium bicarb and hold IVF. She endorses nonproductive cough and LE swelling-chronic. No nvd, no gross hemoptysis/hematemesis. - Constitutional Vitals: Temp Pulse Resp BP Pulse Ox 98.3 F 103 22 160/76 95 02/12/17 08:07 02/12/17 08:07 02/12/17 08:07 02/12/17 08:07 02/12/17 04:55 General appearance: Present: disheveled, A&O X 3 - Head Head exam: Present: atraumatic, normocephalic - Eye Eye exam: Present: EOMI, sclera anicteric - ENT ENT exam: Present: mucous membranes moist - Neck Neck exam general surgery: Present: supple, trachea midline - Respiratory Respiratory exam: Present: rhonchi. Absent: respiratory distress, wheezes - Cardiovascular Cardiovascular exam: Present: +S1, +S2. Absent: JVD - GI/Abdominal GI/Abdominal exam: Present: no peritoneal signs. Absent: tenderness - Extremities Exam Extremities exam: Present: pedal edema (to mid calf, no erythema), warm, radial pulses palpable and symetrical Internal Medicine: Result - Labs CBC & Chem 7: 02/12/17 05:23 02/12/17 08:56 Labs: Short CBC 02/12/17 Range/Units 05:23 WBC 16.7 H (4.3-11.1) K/mcL Hgb 11.4 L (11.5-15.4) g/dL Hct 35.2 L (35.3-44.9) % Plt Count 192 (140-400) K/mcL Neutrophils # 14.9 H (1.6-8.9) K/mcL BMP 02/12/17 02/12/17 05:23 08:56 Sodium 136 133 L Potassium 5.0 H 4.8 H Chloride 113 H 111 H Carbon Dioxide 10 L* 10 L* BUN 78 H 77 H Creatinine 2.78 H 2.81 H Glucose 125 H 238 H Calcium 8.7 8.9 Liver Function 02/12/17 02/12/17 Range/Units 05:23 08:56 Total Bilirubin 0.6 (0.2-1.2) mg/dL AST 15 (5-34) Units/L ALT 12 (0-55) Units/L Alkaline Phosphatase 72 (38-126) Units/L Albumin 2.1 L 2.0 L (3.5-5.0) g/dL - ABG Interpretation ABG results: ABG ABG pH 7.29 pH Units (7.32-7.45) L 02/12/17 07:29 ABG pCO2 28 mmHg (35-45) L 02/12/17 07:29 ABG pO2 63 mmHg (85-104) L 02/12/17 07:29 ABG O2 Saturation 89 % (95-98) L 02/12/17 07:29 PT/INR, D-dimer PT 15.0 Seconds (9.4-12.1) H 02/09/17 21:13 Consult Discharge Plan - Plan Referrals: NO,PCP [Primary Care Provider] - <Riky Sorensen - Last Filed: 02/12/17 18:36> Date of Encounter: 02/12/17 - Assessment and plan (1) Pneumonia Current Visit: Yes Status: Suspected Qualifiers: Pneumonia type: due to Pneumococcus Laterality: right Lung location: lower lobe of lung Qualified Code(s): J13 - Pneumonia due to Streptococcus pneumoniae (2) UGI bleed Current Visit: Yes Status: Acute (3) Anemia associated with acute blood loss Current Visit: Yes Status: Acute Assessment and plan: Monitoring H/H. (4) Metabolic acidosis with normal anion gap and failure of bicarbonate regeneration Current Visit: Yes Status: Acute (5) Acute kidney injury superimposed on CKD Current Visit: Yes Status: Acute (6) Hypertension, uncontrolled Current Visit: Yes Status: Acute - Constitutional Vitals: Temp Pulse Resp BP Pulse Ox 98.2 F 87 14 141/79 90 02/12/17 16:00 02/12/17 16:00 02/12/17 16:00 02/12/17 16:00 02/12/17 16:00 Internal Medicine: Result - Labs CBC & Chem 7: 02/12/17 05:23 02/12/17 08:56 Labs: Short CBC 02/12/17 Range/Units 05:23 WBC 16.7 H (4.3-11.1) K/mcL Hgb 11.4 L (11.5-15.4) g/dL Hct 35.2 L (35.3-44.9) % Plt Count 192 (140-400) K/mcL Neutrophils # 14.9 H (1.6-8.9) K/mcL BMP 02/12/17 02/12/17 05:23 08:56 Sodium 136 133 L Potassium 5.0 H 4.8 H Chloride 113 H 111 H Carbon Dioxide 10 L* 10 L* BUN 78 H 77 H Creatinine 2.78 H 2.81 H Glucose 125 H 238 H Calcium 8.7 8.9 Liver Function 02/12/17 02/12/17 Range/Units 05:23 08:56 Total Bilirubin 0.6 (0.2-1.2) mg/dL AST 15 (5-34) Units/L ALT 12 (0-55) Units/L Alkaline Phosphatase 72 (38-126) Units/L Albumin 2.1 L 2.0 L (3.5-5.0) g/dL - ABG Interpretation ABG results: ABG ABG pH 7.29 pH Units (7.32-7.45) L 02/12/17 07:29 ABG pCO2 28 mmHg (35-45) L 02/12/17 07:29 ABG pO2 63 mmHg (85-104) L 02/12/17 07:29 ABG O2 Saturation 89 % (95-98) L 02/12/17 07:29 PT/INR, D-dimer PT 15.0 Seconds (9.4-12.1) H 02/09/17 21:13 - Attending Attestation I examined this patient and my medical decision-making was reviewed with the Resident Physician on 02/12/17. I agree with the documented findings, disposition and treatment plan as described except to the extent set forth below. Ms. Calvillo is currently admitted for pneumonia. She has developed acute nonanion gap metabolic acidosis. She remains moderate to high risk due to potential for worsening acidosis and respiratory status. Ms. Calvillo is up in chair. She is feeling OK. Breathing seems better she feels. No CP. Has developed acidosis and bicarbonate started. Exam Alert. Comfortable Heart reg Lungs diminished but clear Abd soft No edema I/P 1. Pneumonia 2. Acidosis Further diagnoses and plan as above.
[2017-02-12] MEDS: Sucralfate 1 GM TABLET PO SCH ×2 (17:49→21:47)
[2017-02-12] MEDS: *HR* Morphine 2 MG/ML SYRINGE IVP PRN (19:45)
[2017-02-12] MEDS: Acetaminophen 325 MG TABLET PO PRN (21:50)
[2017-02-13] MEDS: *HR* Morphine 2 MG/ML SYRINGE IVP PRN ×2 (02:32→23:13)
[2017-02-13] MEDS: Sodium Bicarbonate 100 MEQ in 0.45 % Sodium Chloride 1,000 ML IVC SCH ×2 (03:08→16:34)
[2017-02-13] MEDS: Ipratropium/Albuterol Neb 3 ML IH SCH ×4 (03:46→21:33)
[2017-02-13 06:18] LABS: Basophils % 0.3 %; Eosinophils # 0.1 K/mcL (0.0-0.6); Eosinophils % 0.6 %; Hematocrit 31.9 % (35.3-44.9); Hemoglobin 10.3 g/dL (11.5-15.4); Immature Granulocytes % 1.6 % (0-4); Lymphocytes # 0.7 K/mcL (0.6-4.6); Lymphocytes % 4.9 %; Mean Corpuscular HGB Conc 32.3 g/dL (31.6-35.5); Mean Corpuscular Hemoglobin 28.1 pg (28.0-33.3); Mean Corpuscular Volume 86.9 fL (83.0-100.0); Mean Platelet Volume 11.8 fL (9.4-12.4); Monocytes # 1.1 K/mcL (0.0-1.3); Monocytes % 7.5 %; Nucleated Red Blood Cells 0.2 /100 WBC (0); Platelet Count 163 K/mcL (140-400); Red Blood Count 3.67 M/mcL (3.82-4.97); Red Cell Distribution Width 13.9 % (11.5-14.5); Segmented Neutrophils % 85.1 %
[2017-02-13 06:33] LABS: Basophils # 0.1 K/mcL (0.0-0.2); Neutrophils # 12.9 K/mcL (1.6-8.9)
[2017-02-13 06:47] LABS: Albumin/Globulin Ratio 0.4 (1.1-2.2); Bilirubin,Total 0.5 mg/dL (0.2-1.2); Calcium 8.8 mg/dL (8.6-10.8); Globulin 4.3 g/dL (2.4-3.5); Total Protein 6.1 g/dL (6.0-8.3)
[2017-02-13 06:51] LABS: Albumin 1.8 g/dL (3.5-5.0); Potassium 4.8 mEq/L (3.5-4.5)
[2017-02-13 06:54] LABS: Platelet Estimate Normal (Normal); Toxic Granulation Present (Not Present); Toxic Vacuolation Present (Not Present)
[2017-02-13] MEDS: Sucralfate 1 GM TABLET PO SCH ×4 (08:08→20:19)
[2017-02-13] MEDS: Insulin LISPRO 300 UNITS/3 ML VIAL SQ SCH ×4 (08:11→20:19)
[2017-02-13] MEDS ORDERED: Furosemide 40 MG/4 ML VIAL IVP ONE (08:46)
--- NOTE | 2017-02-13 08:46 | Nephrology Progress Note ---
Date of Encounter: 02/13/17 Time of Encounter: 08:43 - Assessment and Plan (1) Acute kidney injury superimposed on CKD Current Visit: Yes Status: Acute Patient's creatinine is slightly worse today compared to yesterday. Her baseline creatinine appears to be around 2.6. His possible with this most recent episode of acute kidney injury that she may not improve all the way back to her previous baseline. Sodium bicarbonate will need to be continued. I am going to give her any one dose of Lasix because of progressive increase in her lower extremity swelling. The etiology of her non-anion gap metabolic acidosis is unclear. She reports she is not having any diarrhea. She may have developed some type of renal tubular disorder. (2) UGI bleed Current Visit: Yes Status: Acute (3) Hypertension, uncontrolled Current Visit: Yes Status: Acute (4) Atrial fibrillation with RVR Current Visit: Yes Status: Acute Subjective Interval history: Patient reports she is anxious to go home. Her creatinine is a bit worse today compared to yesterday. Bicarbonate levels are slightly improved but she still has significant non-anion gap metabolic acidosis. Urine output is satisfactory. Vital signs are stable. Objective - Vital Signs Vital signs: Vital Signs Temp Pulse Resp BP Pulse Ox 02/13/17 08:17 94 02/13/17 07:00 97.9 F 94 16 140/86 94 02/13/17 03:48 18 92 02/13/17 03:00 97.8 F 89 20 138/89 92 02/12/17 21:17 16 86 02/12/17 20:00 98.4 F 86 20 139/77 91 02/12/17 16:00 98.2 F 87 14 141/79 90 02/12/17 15:43 16 91 02/12/17 11:05 97.8 F 96 24 158/93 02/12/17 10:34 16 93 Intake and Output 02/12/17 02/13/17 02/13/17 23:59 07:59 15:59 Intake Total 60 / 60 100 / 100 Output Total 0 / 0 0 / 0 Balance 60 / 60 100 / 100 Intake: Oral 60 / 60 100 / 100 Output: Urine 0 / 0 0 / 0 Other: Meal Dinner Percent of Meal Consumed 50% # Urine Diapers 1 Blood Glucose* 156 198 - General Appearance Exam: Patient is alert and oriented. She is in no acute distress. Lungs sounds otherwise clear. Heart irregular rate and rhythm consistent with atrial fibrillation. Abdomen is benign. Patient exhibits increasing lower extremity edema. - Lab 02/13/17 05:29 02/13/17 05:29 Most recent lab results ABG pH 7.29 pH Units (7.32-7.45) L 02/12/17 07:29 ABG pCO2 28 mmHg (35-45) L 02/12/17 07:29 ABG pO2 63 mmHg (85-104) L 02/12/17 07:29 ABG HCO3 13.5 mEQ/L (21-27) L 02/12/17 07:29 ABG O2 Saturation 89 % (95-98) L 02/12/17 07:29 Calcium 8.8 mg/dL (8.6-10.8) 02/13/17 05:29 Phosphorus 3.1 mg/dL (2.3-4.7) 02/12/17 08:56 Magnesium 1.8 mg/dL (1.6-2.6) 02/10/17 Unknown Consult Discharge Plan - Plan Referrals: NO,PCP [Primary Care Provider] -
[2017-02-13] MEDS ORDERED: levoFLOXacin 750 MG TABLET PO SCH (09:00)
--- NOTE | 2017-02-13 10:01 | Internal Med Progress Note ---
<Yamileth Aguiar - Last Filed: 02/13/17 13:12> Date of Encounter: 02/13/17 Time of Encounter: 08:40 - Assessment and plan (1) Metabolic acidosis with normal anion gap and failure of bicarbonate regeneration Status: Acute Assessment and plan: Pre-existing CKDIV, due to GIB was started on IVF for volume support. She would undergo progressive hyperchloremic NAGMA. 02/12/17 IVF dc'd. Starting sodium bicarb tablets. Appreciate nephrology recs, to start Lasix, promote contraction alkalosis and dec edema. Bicarb from 10 to 13 02/13/17. Cont to monitor. Consider eval for dc tomorrow pending clinical improvement. (2) UGI bleed Status: Acute Assessment and plan: Clinical impression UGIB gross hematemesis. 02/11/2017 EGD with gastric ulcer, no stigmata active bleed. Cont PPI, Carafate. (3) Pneumonia Status: Suspected Assessment and plan: Noted that patient has a right lower lobe pneumonia. Day 4 levaquin, renal dosing Qualifiers: Pneumonia type: due to Pneumococcus Laterality: right Lung location: lower lobe of lung Qualified Code(s): J13 - Pneumonia due to Streptococcus pneumoniae (4) Acute kidney injury superimposed on CKD Status: Acute Assessment and plan: CKDIV followed by Dr. Mcdonough, appreciate recs. - Subjective Interval history: Pt seen/eval, sitting up, bicarb improved. Now with increased swelling LE and puffy hands. She denies any chest pain/pressure/palp/pause, fever, chills, nvd. Good appetite. No joint pain or rash. - Constitutional Vitals: Temp Pulse Resp BP Pulse Ox 97.9 F 94 16 140/86 94 02/13/17 07:00 02/13/17 07:00 02/13/17 07:00 02/13/17 07:00 02/13/17 08:17 General appearance: Present: A&O X 3 - Head Head exam: Present: atraumatic, normocephalic - Eye Eye exam: Present: EOMI, sclera anicteric - ENT ENT exam: Present: mucous membranes moist - Neck Neck exam general surgery: Present: supple, trachea midline - Respiratory Respiratory exam: Absent: rhonchi, wheezes - Cardiovascular Cardiovascular exam: Present: +S1, +S2. Absent: JVD - GI/Abdominal GI/Abdominal exam: Present: soft, no peritoneal signs. Absent: tenderness - Extremities Exam Extremities exam: Present: pedal edema (mid calf, also bilateral puffiness in hands), warm, radial pulses palpable and symetrical Internal Medicine: Result - Labs CBC & Chem 7: 02/13/17 05:29 02/13/17 05:29 Labs: Short CBC 02/13/17 Range/Units 05:29 WBC 15.1 H (4.3-11.1) K/mcL Hgb 10.3 L (11.5-15.4) g/dL Hct 31.9 L (35.3-44.9) % Plt Count 163 (140-400) K/mcL Neutrophils # 12.9 H (1.6-8.9) K/mcL BMP 02/13/17 05:29 Sodium 133 L Potassium 4.8 H Chloride 109 Carbon Dioxide 13 L BUN 69 H Creatinine 3.02 H Glucose 227 H Calcium 8.8 Liver Function 02/13/17 Range/Units 05:29 Total Bilirubin 0.5 (0.2-1.2) mg/dL AST 14 (5-34) Units/L ALT 10 (0-55) Units/L Alkaline Phosphatase 71 (38-126) Units/L Albumin 1.8 L (3.5-5.0) g/dL - ABG Interpretation ABG results: ABG ABG pH 7.29 pH Units (7.32-7.45) L 02/12/17 07:29 ABG pCO2 28 mmHg (35-45) L 02/12/17 07:29 ABG pO2 63 mmHg (85-104) L 02/12/17 07:29 ABG O2 Saturation 89 % (95-98) L 02/12/17 07:29 PT/INR, D-dimer PT 15.0 Seconds (9.4-12.1) H 02/09/17 21:13 Consult Discharge Plan - Plan Instructions: Atrial Fibrillation (DC), Peptic Ulcer (DC), Peptic Ulcer (GEN), Acute Kidney Injury (DC), Acute Kidney Injury (GEN), Chronic Hypertension (DC), Acute Kidney Injury, Loop Cutter (GEN) Referrals: Sofiya Downing [Advanced Practice Nurse] - 02/26/17 9:30 am Jj Mcdonough DO [Non-Partnered Physician] - 02/27/17 11:30 am (follow-up 1 -2 weeks, metabolic acidosis, chronic kidney disease stage 4) NO,PCP [Primary Care Provider] - Prescriptions: Furosemide [Lasix] 20 mg PO BID #60 tablet Omeprazole [PriLOSEC] 20 mg PO BIDAC #60 capsule.dr Sodium Bicarbonate 650 mg PO BID #60 tablet Sucralfate [Carafate] 1 gm PO QIDAC #80 tablet <Riky Sorensen - Last Filed: 02/14/17 18:56> Date of Encounter: 02/13/17 - Assessment and plan (1) Pneumonia Status: Suspected Qualifiers: Pneumonia type: due to Pneumococcus Laterality: right Lung location: lower lobe of lung Qualified Code(s): J13 - Pneumonia due to Streptococcus pneumoniae (2) UGI bleed Status: Acute (3) Anemia associated with acute blood loss Status: Acute (4) Acute kidney injury superimposed on CKD Status: Acute (5) Hypertension, uncontrolled Status: Acute (6) Metabolic acidosis with normal anion gap and failure of bicarbonate regeneration Status: Acute - Constitutional Vitals: Temp Pulse Resp BP Pulse Ox 97.7 F 88 16 113/75 91 02/14/17 12:03 02/14/17 12:03 02/14/17 15:06 02/14/17 12:03 02/14/17 15:06 Internal Medicine: Result - Labs CBC & Chem 7: 02/14/17 01:01 02/14/17 01:01 Labs: Short CBC 02/14/17 Range/Units 01:01 WBC 16.5 H (4.3-11.1) K/mcL Hgb 11.1 L (11.5-15.4) g/dL Hct 33.4 L (35.3-44.9) % Plt Count 188 (140-400) K/mcL Neutrophils # 14.0 H (1.6-8.9) K/mcL BMP 02/14/17 01:01 Sodium 136 Potassium 3.9 Chloride 105 Carbon Dioxide 22 BUN 70 H Creatinine 2.89 H Glucose 141 H Calcium 8.8 Cardiac Enzymes 02/14/17 Range/Units 01:01 Troponin I 0.05 H* (0-0.03) ng/mL Liver Function 02/14/17 Range/Units 01:01 Total Bilirubin 0.4 (0.2-1.2) mg/dL AST 9 (5-34) Units/L ALT 8 (0-55) Units/L Alkaline Phosphatase 63 (38-126) Units/L Albumin 1.9 L (3.5-5.0) g/dL - ABG Interpretation ABG results: ABG ABG pH 7.29 pH Units (7.32-7.45) L 02/12/17 07:29 ABG pCO2 28 mmHg (35-45) L 02/12/17 07:29 ABG pO2 63 mmHg (85-104) L 02/12/17 07:29 ABG O2 Saturation 89 % (95-98) L 02/12/17 07:29 PT/INR, D-dimer PT 15.0 Seconds (9.4-12.1) H 02/09/17 21:13 - Attending Attestation I examined this patient and my medical decision-making was reviewed with the Resident Physician on 02/13/17. I agree with the documented findings, disposition and treatment plan as described except to the extent set forth below. Ms. Calvillo is currently admitted for metabolic acidosis and pneumonia. She remains moderate to high risk due to potential for worsening renal status. Ms. Calvillo is doing a little better today. She is eating lunch. No chest pain or nausea. Appetite OK. Exam Alert. Comfortable Heart reg No wheeze I/p 1. Pneumonia 2. GI bleed Further diagnoses and plan as above.
[2017-02-13] MEDS: Acetaminophen 325 MG TABLET PO PRN (11:48)
[2017-02-13] MEDS ORDERED: Insulin DETEMIR 100 UNIT/ML X5UNITS SQ SCH (21:00)
--- NOTE | 2017-02-13 23:58 | Event Note ---
Date of Encounter: 02/13/17 Time of Encounter: 23:30 Paged that patient had "6 beats of vtach". Evaluated patient at bedside. She is currently asymptomatic and at baseline. Telemetry monitoring shows afib with rate of <198. Has known Afib. Does not see a tile and marble setter regularly, even though she is established with one. Will order troponin and EKG stat.
[2017-02-14 01:15] LABS: Basophils % 0.1 %; Eosinophils # 0.1 K/mcL (0.0-0.6); Eosinophils % 0.7 %; Hematocrit 33.4 % (35.3-44.9); Hemoglobin 11.1 g/dL (11.5-15.4); Immature Granulocytes % 2.3 % (0-4); Lymphocytes # 0.7 K/mcL (0.6-4.6); Lymphocytes % 4.2 %; Mean Corpuscular HGB Conc 33.2 g/dL (31.6-35.5); Mean Corpuscular Hemoglobin 28.5 pg (28.0-33.3); Mean Corpuscular Volume 85.9 fL (83.0-100.0); Monocytes # 1.3 K/mcL (0.0-1.3); Monocytes % 7.8 %; Platelet Count 188 K/mcL (140-400); Red Blood Count 3.89 M/mcL (3.82-4.97); Segmented Neutrophils % 84.9 %
[2017-02-14 01:35] LABS: Albumin/Globulin Ratio 0.4 (1.1-2.2); Bilirubin,Total 0.4 mg/dL (0.2-1.2); Calcium 8.8 mg/dL (8.6-10.8); Globulin 4.6 g/dL (2.4-3.5); Potassium 3.9 mEq/L (3.5-4.5); Total Protein 6.5 g/dL (6.0-8.3)
[2017-02-14 01:36] LABS: Albumin 1.9 g/dL (3.5-5.0)
[2017-02-14] MEDS: Ipratropium/Albuterol Neb 3 ML IH SCH ×3 (04:30→15:06)
[2017-02-14] MEDS: Acetaminophen 325 MG TABLET PO PRN (04:47)
[2017-02-14] MEDS: Sodium Bicarbonate 100 MEQ in 0.45 % Sodium Chloride 1,000 ML IVC SCH (05:51)
[2017-02-14] MEDS: Sucralfate 1 GM TABLET PO SCH ×2 (08:14→12:08)
[2017-02-14] MEDS: Insulin LISPRO 300 UNITS/3 ML VIAL SQ SCH ×2 (08:21→12:09)
[2017-02-14] MEDS ORDERED: Furosemide 40 MG/4 ML VIAL IVP ONE (08:28)
--- NOTE | 2017-02-14 08:32 | Nephrology Progress Note ---
Date of Encounter: 02/14/17 Time of Encounter: 08:30 - Assessment and Plan (1) Acute kidney injury superimposed on CKD Current Visit: Yes Status: Acute The patient's renal function is improved. She is close to her previous baseline creatinine of 2.6. Metabolic acidosis has improved. I am going to discontinue the bicarbonate infusion. Can resume her outpatient Lasix dose because of her lower extremity swelling. (2) UGI bleed Current Visit: Yes Status: Acute (3) Hypertension, uncontrolled Current Visit: Yes Status: Acute (4) Atrial fibrillation with RVR Current Visit: Yes Status: Acute Subjective Interval history: Events of last night of been noted. Patient feels well denies any complaints. She does have lower extremity swelling. Her renal function is improved as is her metabolic acidosis. Objective - Vital Signs Vital signs: Vital Signs Temp Pulse Resp BP Pulse Ox 02/14/17 07:42 97.5 F L 101 16 139/94 94 02/13/17 23:38 98.4 F 102 20 132/90 02/13/17 21:33 18 94 02/13/17 20:00 98.4 F 90 20 136/80 94 02/13/17 15:24 16 95 02/13/17 15:00 97.9 F 88 15 124/74 95 02/13/17 10:27 20 90 Intake and Output 02/13/17 02/14/17 02/14/17 23:59 07:59 15:59 Intake Total 1220 / 1220 1100 / 1100 Output Total 200 / 200 Balance 1020 / 1020 1100 / 1100 Intake: IV Fluids 1100 / 1100 1100 / 1100 Sodium Bicarbonate 100 1100 / 1100 1100 / 1100 MEQ In 0.45% Sodium Chloride 1000 Ml 1000 Ml 1,000 ML @ 75 mls/hr IVC .[id number] DIANE Rx#: [id number] Oral 120 / 120 Output: Urine 200 / 200 Other: Meal Dinner Percent of Meal Consumed 25% Weight 86.5 kg 87.2 kg Blood Glucose* 238 121 Patient Weight 02/14/17 23:59 Weight 87.2 kg - General Appearance Exam: Patient is alert and oriented. She is in no acute distress. Lungs diminished breath sounds. Heart irregular rate and rhythm consistent with atrial fibrillation. She has significant lower extremity edema. - Lab 02/14/17 01:01 02/14/17 01:01 Most recent lab results ABG pH 7.29 pH Units (7.32-7.45) L 02/12/17 07:29 ABG pCO2 28 mmHg (35-45) L 02/12/17 07:29 ABG pO2 63 mmHg (85-104) L 02/12/17 07:29 ABG HCO3 13.5 mEQ/L (21-27) L 02/12/17 07:29 ABG O2 Saturation 89 % (95-98) L 02/12/17 07:29 Calcium 8.8 mg/dL (8.6-10.8) 02/14/17 01:01 Phosphorus 3.1 mg/dL (2.3-4.7) 02/12/17 08:56 Magnesium 1.8 mg/dL (1.6-2.6) 02/10/17 Unknown Consult Discharge Plan - Plan Instructions: Atrial Fibrillation (DC), Peptic Ulcer (DC), Peptic Ulcer (GEN), Acute Kidney Injury (DC), Acute Kidney Injury (GEN), Chronic Hypertension (DC), Acute Kidney Injury, Recovery Unit Operator (GEN) Referrals: NO,PCP [Primary Care Provider] -
[2017-02-14] MEDS ORDERED: Furosemide 20 MG TABLET PO PRN (08:33)
[2017-02-14] MEDS ORDERED: Magnesium Oxide 400 MG TABLET PO SCH (09:00)
--- NOTE | 2017-02-14 10:16 | Discharge Summary ---
Addendum entered and electronically signed by Yamileth Aguiar DO 02/14/17 13:34: Patient was noted to have nocturnal desaturation 86%. Suspect sleep apnea. Will order for outpatient nocturnal pulse-ox study to be done by Home Health. Original Note: <Yamileth Aguiar - Last Filed: 02/14/17 13:20> Date of Encounter: 02/14/17 Time of Encounter: 09:55 - Discharge Diagnosis (1) Metabolic acidosis with normal anion gap and failure of bicarbonate regeneration Priority: Primary Status: Acute (2) UGI bleed Priority: Primary Status: Acute (3) Pneumonia Priority: Primary Status: Suspected Qualifiers: Pneumonia type: due to Pneumococcus Laterality: right Lung location: lower lobe of lung Qualified Code(s): J13 - Pneumonia due to Streptococcus pneumoniae (4) Acute kidney injury superimposed on CKD Priority: Primary Status: Acute - Discharge Medications Prescriptions: Furosemide [Lasix] 20 mg PO BID #60 tablet Omeprazole [PriLOSEC] 20 mg PO BIDAC #60 capsule. Sodium Bicarbonate 650 mg PO BID #60 tablet Sucralfate [Carafate] 1 gm PO QIDAC #80 tablet Home Medications: Aspirin Enteric Coated [Aspirin EC] 81 mg PO DAILY 02/10/17 [History] Calcitriol [Rocaltrol] 0.25 mcg PO DAILY 02/10/17 [History] Carvedilol [Coreg] 25 mg PO DAILY 02/10/17 [History] Cyanocobalamin (Vitamin B-12) [Vitamin B-12] 100 mcg PO DAILY 02/10/17 [History] Ergocalciferol (VITAMIN D2) [Vitamin D] 800 unit PO DAILY 02/10/17 [History] Linagliptin [Tradjenta] 5 mg PO DAILY 02/10/17 [History] Losartan Potassium [Cozaar] 100 mg PO DAILY 02/10/17 [History] Rosuvastatin Calcium [Crestor] 5 mg PO HS 02/10/17 [History] Furosemide [Lasix] 20 mg PO BID #60 tablet 02/14/17 [Rx] Omeprazole [PriLOSEC] 20 mg PO BIDAC #60 capsule. 02/14/17 [Rx] Sodium Bicarbonate 650 mg PO BID #60 tablet 02/14/17 [Rx] Sucralfate [Carafate] 1 gm PO QIDAC #80 tablet 02/14/17 [Rx] Allergies/Adverse Reactions: Allergies Penicillins Adverse Reaction (Severe, Verified 02/09/17 20:52) See Comments Lips swelling Procedures/tests Complete & Pending: Procedures Performed prior 72 hours Category Date Time Status ECG 12 lead ECG [ECG] Stat Y 02/13/17 23:37 Ordered Date of admission: 02/09/17 21:19 Primary care physician: PCP NO Consults: 02/09/17 21:19 Consult to Certified Lactation Counselor [CONS] Routine Comment: 02/09/17 21:23 Consult to Physician [CONS] Routine Consulting Provider: Jj Mcdonough Reason for Consult: ARF w CKD Call Completed: Yes 02/10/17 00:07 Consult to Surgery [CONS] Routine Consulting Provider: Lani Casey Reason for Consult: EGD; UGI bleed Time Notified: 00:08 Call Completed: Yes 02/11/17 16:45 Consult to Nephrology [CONS] Routine Consulting Provider: Kidney & HTN Spclst YEYO Reason for Consult: CKD III to IV Call Completed: Yes Discharging clinician: Riky Sorensen Anticipated date of discharge: 02/14/17 - Patient Status Disposition: Home, Self-Care Condition: Fair Functional capacity at discharge: independent ambulation Overall status at discharge: patient is progressing back to baseline - Ambulatory Orders Ambulatory Orders: Nocturnal Oximetry Time Frame: 1 Week, Facility: [facility], Location: Home Health Services - Discharge Instructions Instructions: Atrial Fibrillation (DC), Peptic Ulcer (DC), Peptic Ulcer (GEN), Acute Kidney Injury (DC), Acute Kidney Injury (GEN), Chronic Hypertension (DC), Acute Kidney Injury, 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 Calvillo is a 61 year old female with CKDIV followed by poolroom table attendant Dr. Jj Mcdonough. Patient would present to [facility] with chief concern: Bloody vomitus suggesting upper GI bleed. Comorbidities would include: CKDIV, obesity, CAD, HTN, history [place] Hospital course: Patient was transfused 2 U PRBC, volume resuscitation. GI consult for suspected upper GI bleed. 02/11/2017 EGD with gastric ulcer, no stigmata active bleed. Recommend to Cont PPI, Carafate. Patient would have CXR suggesting RLL pneumonia, completed 5 day course of levaquin. She would have progressive hyperchloremic normal anion-gap metabolic acidosis. Nephrology consulted for metabolic acidosis, started bicarb infusion and tablets. Patient's bicarb improved, adjusted volume status with Lasix. Per nephrology: Can resume her outpatient Lasix dose because of her lower extremity swelling. At time of discharge, patient was clinically improved, hemodynamically stable, progressing to baseline, and agreeable with plan of care. Patient was advised to seek immediate medical attention for any new or worsening symptoms including but not limited to fever, chills, chest pain, chest pressure, dyspnea, cough, abdominal pain, nausea, vomiting, diarrhea, bloody stool, urine and the patient voiced understanding. Patient will follow-up with Dr. Jj Mcdonough in 1-2 weeks. - Time Spent with Patient Total time spent providing and/or coordinating discharge services: Greater than 30 minutes - Constitutional Vitals: Temp Pulse Resp BP Pulse Ox 97.5 F L 101 16 139/94 94 02/14/17 07:42 02/14/17 07:42 02/14/17 07:42 02/14/17 07:42 02/14/17 08:28 General appearance: Present: A&O X 3 - Head Head exam: Present: atraumatic, normocephalic - Eye Eye exam: Present: EOMI, sclera anicteric - ENT ENT exam: Present: mucous membranes moist - Neck Neck exam general surgery: Present: supple, trachea midline - Respiratory Respiratory exam: Absent: rhonchi, wheezes - Cardiovascular Cardiovascular exam: Present: +S1, +S2. Absent: JVD - GI/Abdominal GI/Abdominal exam: Present: soft, no peritoneal signs. Absent: tenderness - Extremities Exam Extremities exam: Present: pedal edema (1+ to mid ankles, pamela hands puffiness), warm, radial pulses palpable and symetrical - Neurological Exam Neurological exam: Present: strengths equal and symetr throughout <Riky Sorensen - Last Filed: 02/14/17 19:00> Date of Encounter: 02/14/17 - Discharge Diagnosis (1) Pneumonia Status: Suspected Qualifiers: Pneumonia type: due to Pneumococcus Laterality: right Lung location: lower lobe of lung Qualified Code(s): J13 - Pneumonia due to Streptococcus pneumoniae (2) UGI bleed Status: Acute (3) Anemia associated with acute blood loss Priority: Secondary Status: Acute (4) Acute kidney injury superimposed on CKD Priority: Primary Status: Acute (5) Hypertension, uncontrolled Priority: Secondary Status: Acute (6) Metabolic acidosis with normal anion gap and failure of bicarbonate regeneration Priority: Primary Status: Acute (7) Tobacco abuse Priority: Secondary Status: Chronic Procedures/tests Complete & Pending: Procedures Performed prior 72 hours Category Date Time Status ECG 12 lead ECG [ECG] Stat Y 02/13/17 23:37 Ordered Date of admission: 02/09/17 21:19 Primary care physician: PCP NO Consults: 02/09/17 21:19 Consult to Certified Lactation Counselor [CONS] Routine Comment: 02/09/17 21:23 Consult to Physician [CONS] Routine Consulting Provider: Jj Mcdonough Reason for Consult: ARF w CKD Call Completed: Yes 02/10/17 00:07 Consult to Surgery [CONS] Routine Consulting Provider: Lani Casey Reason for Consult: EGD; UGI bleed Time Notified: 00:08 Call Completed: Yes 02/11/17 16:45 Consult to Nephrology [CONS] Routine Consulting Provider: Kidney & HTN Spclst YEYO Reason for Consult: CKD III to IV Call Completed: Yes Hospital course: Ms. Calvillo is a 61 year old female - Time Spent with Patient Total time spent providing and/or coordinating discharge services:35min - Constitutional Vitals: Temp Pulse Resp BP Pulse Ox 97.7 F 88 16 113/75 91 02/14/17 12:03 02/14/17 12:03 02/14/17 15:06 02/14/17 12:03 02/14/17 15:06 - Attending Attestation I examined this patient and my medical decision-making was reviewed with the Resident Physician on 02/14/17. I agree with the documented findings, disposition and treatment plan as described except to the extent set forth below. Ms. Calvillo is feeling OK. She has less cough and no fever. Vitals are stable. Acidosis improved. Pt ready for d/c home. Exam Alert. Comfortable Heart reg No wheeze Plan D/C home Follow up with PCP.
[2017-02-14 12:07] VITALS: BP 113/75
--- NOTE | 2017-02-14 14:11 | Physician Discharge Referral ---
Home Health/Hosp Referral Info Transfer to: Home Health Attending Provider: Dr. Riky Sorensen Provider in Charge Post Discharge: PCP - Diagnosis (1) Metabolic acidosis with normal anion gap and failure of bicarbonate regeneration Status: Acute (2) UGI bleed Status: Acute (3) Pneumonia Status: Suspected (4) Acute kidney injury superimposed on CKD Status: Acute - Respiratory Orders Smoking Cessation: Smoking cessation has been advised. For more information, call the [place] Tobacco Quit Line at 9-297-TNTB-NOW. - Diet/Nutrition Diet/Nutrition Orders: No Added Salt (CESAR), Renal - Activity Activity Orders: Ambulate - Services Needed Following services are medically necessary services: Nursing, Home Health Aide, Physical Therapy, Occupational Therapy - Transfer Medications Prescriptions: Furosemide [Lasix] 20 mg PO BID #60 tablet Omeprazole [PriLOSEC] 20 mg PO BIDAC #60 capsule. Sodium Bicarbonate 650 mg PO BID #60 tablet Sucralfate [Carafate] 1 gm PO QIDAC #80 tablet Home Medications: Aspirin Enteric Coated [Aspirin EC] 81 mg PO DAILY 02/10/17 [History] Calcitriol [Rocaltrol] 0.25 mcg PO DAILY 02/10/17 [History] Carvedilol [Coreg] 25 mg PO DAILY 02/10/17 [History] Cyanocobalamin (Vitamin B-12) [Vitamin B-12] 100 mcg PO DAILY 02/10/17 [History] Ergocalciferol (VITAMIN D2) [Vitamin D] 800 unit PO DAILY 02/10/17 [History] Linagliptin [Tradjenta] 5 mg PO DAILY 02/10/17 [History] Losartan Potassium [Cozaar] 100 mg PO DAILY 02/10/17 [History] Rosuvastatin Calcium [Crestor] 5 mg PO HS 02/10/17 [History] Furosemide [Lasix] 20 mg PO BID #60 tablet 02/14/17 [Rx] Omeprazole [PriLOSEC] 20 mg PO BIDAC #60 capsule. 02/14/17 [Rx] Sodium Bicarbonate 650 mg PO BID #60 tablet 02/14/17 [Rx] Sucralfate [Carafate] 1 gm PO QIDAC #80 tablet 02/14/17 [Rx] Allergies/Adverse Reactions: Allergies Penicillins Adverse Reaction (Severe, Verified 02/09/17 20:52) See Comments Lips swelling Certification: Further, I certify that my clinical findings support that this patient is homebound (i.e. absences from home require considerable and taxing effort and are for medical reasons or uatsdin services or infrequently or short duration when for other reasons) because: Homebound Reason: Patient requires assistance of a person or device to safely leave home, Absences from home are contraindicated except to recieve medical care, Post-surgery restriction and or conditions limit ability to leave home, Leaving home requires considerable and taxing effort due to condition, Altered mental status requiring supervision when leaving home, Severity of cardiac or pulmonary status limits activity tolerance Attestation: My signature below is to certify that this patient is under my care and that I, or nurse practitioner, or a physician's regulatory affairs assistant working with me, has a face-to -face encounter with this patient.
== END 2017-02-14 15:33 | disposition home or self-care (01) | DRG 383 ==
LOC: 2NENU → SUATTDRO 21:19
PROVIDERS: ADMIT Nurse Practitioner Family; ATTEND Internal Medicine
PROC: ENDOEBX (2017-02-11 14:30)

== ENCOUNTER 2017-03-18 18:04 | Inpatient (IN) ==
[2017-03-18] MEDS ORDERED: Ondansetron 4 MG/2 ML VIAL IVP PRN (22:12)
--- NOTE | 2017-03-18 22:18 | Internal Med History&Physical ---
<Wilber Mancilla Bill - Last Filed: 03/19/17 00:27> Date of Encounter: 03/19/17 Time of Encounter: 22:13 Assessment and Plan (1) Hemorrhagic shock Current visit: Yes Status: Acute Evidence by lactic acid of 9.2 in the setting of acute blood loss anemia. Blood pressure stabilized at this time. Giving blood products. Trend lactic acid. Patient does not appear septic at this time but is high risk for GI infection given acute GI bleed so we will cover with Cipro and Flagyl, renally dosed. Blood cultures have been drawn. (2) UGI bleed Current visit: No Status: Acute Likely related to known ulcer disease. Hemoglobin was apparently 3.8 on presentation to [facility] however we do not have any records. Patient received 2 units of blood prior to arrival, hemoglobin recheck shows hemoglobin of 6.1. We will give 2 more units. H&H every 6 hours. Protonix drip. Patient had an NG placed prior to arrival, there is no evidence of active bleeding at this time. (3) Anemia associated with acute blood loss Current visit: No Status: Acute Secondary due to GI bleed as discussed above. No active bleeding at this time. Patient received 2 units prior to arrival. Will transfuse 2 more units. H&H every 6 hours. (4) Supratherapeutic INR Current visit: Yes Status: Acute Secondary due to warfarin toxicity. Patient was recently on antibiotics which likely altered her warfarin metabolism. Patient's INR was 2 PM presentation however this was drawn off a pre-existing IV line which previously had likely running through it so I am concerned that this is falsely depressed. We will give 2 more units of FFP and recheck INR. (5) Lactic acidosis Current visit: Yes Status: Acute Secondary to hemorrhagic shock as discussed above. We will give blood products as discussed above and trend lactic acid. (6) Peptic ulcer disease Current visit: Yes Status: Acute Patient had an upper endoscopy 6 weeks ago that showed multiple nonbleeding gastric ulcers. This is likely the source of the patient's current blood loss anemia and GI bleed. We will place patient on Protonix drip. We will keep patient nothing by mouth. (7) Atrial fibrillation Current visit: Yes Status: Acute Patient is currently in normal sinus rhythm with rate well controlled. Coumadin is being held because of acute GI bleed and supratherapeutic INR as discussed above. Qualifiers: Atrial fibrillation type: paroxysmal Qualified Code(s): I48.0 - Paroxysmal atrial fibrillation (8) Hypertension Current visit: Yes Status: Acute Stable at this time. We will hold antihypertensives due to concern for hemorrhagic shock. Qualifiers: Hypertension type: essential hypertension Qualified Code(s): I10 - Essential (primary) hypertension (9) Type 2 diabetes mellitus Current visit: Yes Status: Acute Blood sugars mildly elevated on presentation, will hold oral antidiabetic medications and institute sliding scale. Qualifiers: Diabetes mellitus complication status: without complication Diabetes mellitus skilled nursing insulin use: without skilled nursing use Qualified Code(s): E11.9 - Type 2 diabetes mellitus without complications (10) Heart failure with preserved ejection fraction Current visit: Yes Status: Acute Recent echo shows preserved EF with moderate diastolic dysfunction. Patient has significant lower respiratory edema however she does not have signs of pulmonary edema. Patient is receiving a large amount of blood products so will treat with 40 mg of Lasix now and 40 mg of Lasix after the next 2 units of blood. We will continue to monitor the patient's respiratory status. (11) DVT prophylaxis Current visit: Yes Status: Acute Pharmacologic anticoagulation is contraindicated. We will institute EPCDs Internal Medicine - H&P: HPI Chief complaint: Vomiting blood Admitted From: Hospital to Hospital Transfer Plans for Post Hospital Care: Home History of present illness: Ms. Calvillo is a 62 year old female with history of A. fib and gastric ulcers presents from outside hospital with hematemesis. Patient states that half ago she was seen at this facility had an upper endoscopy which revealed multiple nonbleeding gastric ulcers. Patient then states that approximately 2 weeks ago she started on antibiotic therapy with an unknown antibiotic for pneumonia which she stopped several days prior to arrival. Patient states that she was also told to stop her Coumadin about 3 days ago because of multiple bruises on her back. Patient is unsure when her last INR was. Patient states today she was seen by home health and the patient had several episodes of vomiting of dark red blood. She also reports loose stools but did not look at the stools to see if there is any black stools or bloody stools. She reports mild shortness of breath. She denies fever, chills, chest pain. Past Med Surg Social Fam HX - Past Medical History Medical history: arthritis, atrial fibrillation, cancer, CHF, coronary artery disease, diabetes, GI bleed, hypertension, myocardial infarction, osteoporosis, renal disease Psychiatric history: no psych history - Past Surgical History Surgical History: cholecystectomy, coronary bypass (CABG) - Social History Smoking Status: Current every day smoker Smokeless Tobacco Status: No Alcohol use: none Drug use: none - Family History Mother Family Member Ethnicity: Non- Living Status: Age at : 86 Cause of : open heart surgery complications Hx Family Cardiac Disorders: Yes Hx Family Respiratory Disorders: No Hx Family Cancer: No Hx Family GI Disorders: No Internal Medicine - H&P: Meds Aspirin Enteric Coated [Aspirin EC] 81 mg PO DAILY 02/10/17 [History] Calcitriol [Rocaltrol] 0.25 mcg PO DAILY 02/10/17 [History] Carvedilol [Coreg] 25 mg PO DAILY 02/10/17 [History] Cyanocobalamin (Vitamin B-12) [Vitamin B-12] 100 mcg PO DAILY 02/10/17 [History] Ergocalciferol (VITAMIN D2) [Vitamin D] 800 unit PO DAILY 02/10/17 [History] Linagliptin [Tradjenta] 5 mg PO DAILY 02/10/17 [History] Losartan Potassium [Cozaar] 100 mg PO DAILY 02/10/17 [History] Rosuvastatin Calcium [Crestor] 5 mg PO HS 02/10/17 [History] Furosemide [Lasix] 20 mg PO BID #60 tablet 02/14/17 [Rx] Omeprazole [PriLOSEC] 20 mg PO BIDAC #60 capsule. 02/14/17 [Rx] Sodium Bicarbonate 650 mg PO BID #60 tablet 02/14/17 [Rx] Sucralfate [Carafate] 1 gm PO QIDAC #80 tablet 02/14/17 [Rx] Pioglitazone [Actos] 15 mg PO DAILY 03/18/17 [History] Allergies Penicillins Allergy (Severe, Verified 03/18/17 22:37) Swelling of Lip/Tongue/Throat All Systems PM: A 10-system review of systems was performed and is negative for pertinent findings except as documented above in the HPI. - Constitutional Constitutional: no chills, no fever(s) - EENT Eyes: no blurry vision, no change in vision Nose, mouth and throat: no bleeding gums, no sinus pain, no sinus pressure, no sore throat - Cardiovascular Cardiovascular ROS IM: dyspnea, edema, lightheadedness, no chest pain, no irregular heart rhythm, no syncope - Respiratory Respiratory: dyspnea, no cough, no hemoptysis, no pain on inspiration, no chest congestion, no excessive phlegm production, no change in phlegm color - Gastrointestinal Gastrointestinal: diarrhea, hematemesis, nausea, vomiting, no abdominal pain, no hematochezia, no melena - Genitourinary Genitourinary: no dysuria, no hematuria, no urinary frequency, no urinary hesitancy, no urinary incontinence, no urinary urgency - Musculoskeletal Musculoskeletal ROS IM: no numbness, no tingling - Integumentary Integumentary IM: erythema, sores, unusual bruising - Neurological Neurological ROS: dizziness, no confusion, no frequent falls, no numbness, no tingling - Hematologic/Lymphatic Hematologic/Lymphatic: easy bleeding, easy bruising - Constitutional General appearance: Present: A&O X 3, no acute distress - Head Head exam: Present: atraumatic, normal inspection, normocephalic - ENT ENT exam: Present: mucous membranes dry Additional comments: NG tube present - Respiratory Respiratory exam: Present: CTAB. Absent: rales, rhonchi, wheezes - Cardiovascular Cardiovascular exam: Present: RRR. Absent: gallop, rubs, systolic murmur - GI/Abdominal GI/Abdominal exam: Present: hypoactive bowel sounds, soft, tenderness (Mild epigastric tenderness). Absent: distended - Extremities Exam Extremities exam: Present: pedal edema (3+ pitting edema bilaterally), warm. Absent: tenderness - Neurological Exam Neurological exam: Present: alert, CN II-XII intact, oriented X3, no focal deficits - Skin Skin exam: Present: erythema (Sacral), pallor (Diffuse) Additional comments: Multiple area of ecchymosis on the back and flank. Internal Med - H&P Results - Labs CBC & Chem 7: 03/18/17 22:08 03/18/17 22:08 <Breezy Calix - Last Filed: 03/19/17 01:44> Date of Encounter: 03/19/17 - EENT Nose, mouth and throat: no nasal congestion, no sore throat - Cardiovascular Cardiovascular ROS IM: dyspnea - Respiratory Respiratory: no cough, no hemoptysis - Gastrointestinal Gastrointestinal: coffee ground emesis, hematemesis, melena, no hematochezia - Genitourinary Genitourinary: no dysuria - Musculoskeletal Musculoskeletal ROS IM: no arthralgias, no back pain - Psychiatric Psychiatric: no anxiety, no depression - Constitutional Vitals: Temp Pulse Resp BP Pulse Ox 97.8 F 100 22 140/68 100 03/19/17 01:15 03/19/17 01:15 03/19/17 01:15 03/19/17 01:03/19/17 01:15 General appearance: Present: cooperative, A&O X 3, pleasant - Head Head exam: Present: atraumatic, normal inspection - Eye Eye exam: Present: PERRL. Absent: scleral icterus Pupils: Present: normal accommodation - ENT ENT exam: Present: mucous membranes dry, normal exam - Neck Neck exam general surgery: Present: full ROM, supple. Absent: tenderness, thyromegaly - Respiratory Respiratory exam: Present: CTAB - Cardiovascular Cardiovascular exam: Present: RRR. Absent: diastolic murmur, systolic murmur - GI/Abdominal GI/Abdominal exam: Present: soft, no peritoneal signs. Absent: guarding, hepatomegaly, mass, rebound, splenomegaly, tenderness - Extremities Exam Extremities exam: Present: full ROM, warm. Absent: calf tenderness - Back Exam Back exam: Absent: CVA tenderness (L), CVA tenderness (R) Internal Med - H&P Results - Labs CBC & Chem 7: 03/18/17 22:08 03/18/17 22:08 Labs: Short CBC 03/18/17 Range/Units 22:08 WBC 12.2 H (4.3-11.1) K/mcL Hgb 6.1 L (11.5-15.4) g/dL Hct 20.1 L (35.3-44.9) % Plt Count 270 (140-400) K/mcL Neutrophils # 9.4 H (1.6-8.9) K/mcL BMP 03/18/17 22:08 Sodium 139 Potassium 4.5 Chloride 110 H Carbon Dioxide 10 L* BUN 88 H Creatinine 2.91 H Glucose 184 H Calcium 6.4 L Liver Function 03/18/17 Range/Units 22:08 Total Bilirubin 1.2 (0.2-1.2) mg/dL AST 44 H (5-34) Units/L ALT 27 (0-55) Units/L Alkaline Phosphatase 73 (38-126) Units/L Albumin 1.8 L (3.5-5.0) g/dL Urine 03/18/17 Range/Units 23:58 Urine Color Yellow (Yellow) Urine Clarity Cloudy A (Clear) Urine pH 5.5 (5.0-8.0) pH Units Ur Specific Lucien 1.017 (1.010-1.025) Urine Protein 30 H (Neg-Trace) mg/dL Urine Glucose (UA) Normal (Normal) mg/dL - Impressions ITS Impressions Chest X-Ray 03/18/17 21:58 IMPRESSION: 1. No subdiaphragmatic free air. 2. Stable left base atelectasis/scarring. D/ / Daniele Rankin MD / Daniele Rankin MD Interpreting Provider: Daniele Rankin MD X-Ray 03/18/17 21:59 IMPRESSION: Appropriate positioning of NGT. D/ / Edu Huber MD / Edu Huber MD Interpreting Provider: Edu Huber MD - Diagnostic Studies Chest x-ray Status: image reviewed by me Additional comments: negative; no free air under diaphragm - Attending Attestation I discussed the patient ELEM, PMH, ROS, lab data, and exam findings with Dr. Mancilla. I then saw and examined patient independently as well. Pt presented to [facility] with hemorraghic shock. She received 2 units PRBC's and 2 units FFP prior to transfer. Her vitals are relatively stable right now, but she still has some occasional hematemesis and melena. Unfortunately, she only has one small gauge IV in place. Nurses are unable to find an adequate vein and/or place a second IV. Pt will need aggressive blood product transfusion (PRBC, FFP , etc) for hemodynamic support. We will keep her on Protonix drip. I agree with antibiotics to cover GI delfino. She is not septic presently, but, rather, she is suffering from hemorrhagic shock from coagulopathy and known gastric ulcer. We will continue to provide supportive measures, transfusions, and monitor hemodynamics in the ICU. If necessary, we will intubate to protect her airway. However, for now, she seems to be tolerating current measures. Dr. Constantino has been notified earlier and we will consult him to proceed with endoscopy later today once patient is stabilized. I spoke with patient at length and emphasized the grave and critical situation she is in presently. We will attempt to place a central venous catheter for ongoing hemodynamic support , transfusions, etc. Other than my comments above and noted exam findings, I agree with Dr. Mancilla's assessment and paln. Total of 55 minutes critical care time spent with patient thus far.
[2017-03-18 22:20] LABS: Basophils % 0.1 %; Hematocrit 20.1 % (35.3-44.9); Hemoglobin 6.1 g/dL (11.5-15.4); Immature Granulocytes % 0.7 % (0-4); Immature Platelets 4.4 % (1.1-6.1); Lymphocytes # 1.7 K/mcL (0.6-4.6); Lymphocytes % 13.6 %; Mean Corpuscular HGB Conc 30.3 g/dL (31.6-35.5); Mean Corpuscular Hemoglobin 28.9 pg (28.0-33.3); Mean Platelet Volume 10.8 fL (9.4-12.4); Monocytes % 8.4 %; Neutrophils # 9.4 K/mcL (1.6-8.9); Nucleated Red Blood Cells 0.2 /100 WBC (0); Platelet Count 270 K/mcL (140-400); Red Blood Count 2.11 M/mcL (3.82-4.97); Red Cell Distribution Width 19.1 % (11.5-14.5); Segmented Neutrophils % 77.2 %
[2017-03-18 22:24] LABS: INR 2.8; Prothrombin Time 30.9 Seconds (9.4-12.1)
[2017-03-18] MEDS: Pantoprazole 40 MG in 0.9 % Sodium Chloride Mini Bag 100 ML IVC SCH (22:26)
[2017-03-18 22:29] LABS: Mean Corpuscular Volume 95.3 fL (83.0-100.0)
[2017-03-18 22:32] LABS: Albumin/Globulin Ratio 0.5 (1.1-2.2); Bilirubin,Total 1.2 mg/dL (0.2-1.2); Calcium 6.4 mg/dL (8.6-10.8); Potassium 4.5 mEq/L (3.5-4.5); Total Protein 5.4 g/dL (6.0-8.3)
[2017-03-18 22:33] LABS: Globulin 3.6 g/dL (2.4-3.5)
[2017-03-18 22:39] LABS: Albumin 1.8 g/dL (3.5-5.0)
[2017-03-18] MEDS ORDERED: Furosemide 40 MG/4 ML VIAL IVP ONE (22:39)
[2017-03-18] MEDS ORDERED: D5% in Water 1,000 ML IVC PRN (23:15)
[2017-03-18] MEDS ORDERED: Dextrose Gel 15 GM PO PRN ×2 (23:15)
[2017-03-18] MEDS ORDERED: *HR* Dextrose 50 % in Water (Syg) 50 ML SYRINGE IVP PRN (23:15)
[2017-03-18] MEDS ORDERED: 0.9 % Sodium Chloride 250 ML ONE (23:20)
[2017-03-18] MEDS ORDERED: Calcium Chloride 1,000 MG in 0.9 % Sodium Chloride 100 ML IVPB ONE (23:55)
[2017-03-19] MEDS ORDERED: MetroNIDAZOLE 500 MG/100 ML 500 MG/100 ML BAG IVPB SCH
[2017-03-19] MEDS: Insulin LISPRO 300 UNITS/3 ML VIAL SQ SCH ×4 (00:16→17:44)
[2017-03-19 00:35] LABS: Bilirubin,Urine Negative (Negative); Blood,Urine Large (Negative); Clarity,Urine Cloudy (Clear); Color,Urine Yellow (Yellow); Glucose,Urine (UA) Normal (Normal); Ketones,Urine Negative (Negative); Leukocyte Esterase,Urine Large (Negative); Nitrite,Urine Negative (Negative); PH,Urine 5.5 pH Units (5.0-8.0); Protein,Urine 30 mg/dL (Neg-Trace); Specific Gravity,Urine 1.017 (1.010-1.025); Urobilinogen,Urine Normal (Normal)
[2017-03-19 01:31] LABS: Hematocrit 18.9 % (35.3-44.9)
[2017-03-19 01:34] LABS: Hemoglobin 5.8 g/dL (11.5-15.4)
[2017-03-19 01:35] LABS: INR 2.1; Prothrombin Time 22.7 Seconds (9.4-12.1)
[2017-03-19] MEDS ORDERED: 0.9 % Sodium Chloride 250 ML ONE (01:35)
[2017-03-19] MEDS ORDERED: Lidocaine -MPF 2% 5 ML VIAL INFILT ONE (01:38)
--- NOTE | 2017-03-19 02:33 | Procedure Note ---
<Wilber Mancilla - Last Filed: 03/19/17 02:29> Date of procedure: 03/19/17 Pre-op diagnosis: Anemia/Poor IV access Post-op diagnosis: same Procedure: Written consent was obtained from the patient. The right femoral area was surveyed using ultrasound and deemed to be a suitable target. Patient was cleaned and draped in usual sterile fashion. This skin and subcutaneous tissues were anesthetized using lidocaine. Under ultrasound guidance the introducer needle was introduced into the right femoral vein. Dark red blood was returned. The guidewire was passed through the syringe and needle into the vein without resistance. The syringe and introducer needle were removed. A pasha in the skin was made using a scalpel. Skin and subcutaneous tissues were dilated. A 20 cm triple-lumen catheter was threaded over the guidewire and advanced into the right femoral vein without resistance. The guidewire was removed intact. All 3 ports were tested and shown to draw blood and flushed easily. The catheter was sutured in place, Biopatch and sterile dressing were applied. The patient tolerated the procedure well, there were no immediate complications. The attending physician, Dr. Calix, supervised and was present for the entire procedure. Anesthesia: local Surgeon: Wilber Mancilla Estimated blood loss (cc): 15 IV fluids (cc): 10 Pathology: none sent Condition: critical Disposition: ICU <Breezy Calix - Last Filed: 03/19/17 03:07> Procedure: I was present for, witnessed, and supervised the entire procedure. Dr. Mancilla performed the CVC placement without difficulty and patient tolerated it well. He exercised proper technique and placed the line skillfully.
[2017-03-19] MEDS ORDERED: *HR* Promethazine 25 MG/ML VIAL IVP PRN (02:42)
[2017-03-19 04:53] LABS: Ionized Calcium 1.07 mmol/L (1.15-1.35)
[2017-03-19 04:55] LABS: INR 1.9
[2017-03-19] MEDS: Pantoprazole 40 MG in 0.9 % Sodium Chloride Mini Bag 100 ML IVC SCH ×4 (05:21→20:45)
[2017-03-19 06:08] LABS: Hematocrit 24.8 % (35.3-44.9)
--- NOTE | 2017-03-19 06:14 | Pulmonology Consult Note ---
<VinceFady W - Last Filed: 03/19/17 10:32> Date of Encounter: 03/19/17 Medications and Allergies Aspirin Enteric Coated [Aspirin EC] 81 mg PO DAILY 02/10/17 [History] Calcitriol [Rocaltrol] 0.25 mcg PO DAILY 02/10/17 [History] Carvedilol [Coreg] 25 mg PO DAILY 02/10/17 [History] Cyanocobalamin (Vitamin B-12) [Vitamin B-12] 100 mcg PO DAILY 02/10/17 [History] Ergocalciferol (VITAMIN D2) [Vitamin D] 800 unit PO DAILY 02/10/17 [History] Linagliptin [Tradjenta] 5 mg PO DAILY 02/10/17 [History] Losartan Potassium [Cozaar] 100 mg PO DAILY 02/10/17 [History] Rosuvastatin Calcium [Crestor] 5 mg PO HS 02/10/17 [History] Furosemide [Lasix] 20 mg PO BID #60 tablet 02/14/17 [Rx] Omeprazole [PriLOSEC] 20 mg PO BIDAC #60 capsule. 02/14/17 [Rx] Sodium Bicarbonate 650 mg PO BID #60 tablet 02/14/17 [Rx] Sucralfate [Carafate] 1 gm PO QIDAC #80 tablet 02/14/17 [Rx] Pioglitazone [Actos] 15 mg PO DAILY 03/18/17 [History] Allergies Penicillins Allergy (Severe, Verified 03/18/17 22:37) Swelling of Lip/Tongue/Throat All Systems: A 10-system review of systems was performed and is negative for pertinent findings except as documented above in the HPI. Physical Examination Vital Signs: Vital Signs, Last 4 Hours Temp Pulse Resp BP Pulse Ox 03/19/17 08:11 98.0 F 03/19/17 08:00 98.0 F 87 18 160/125 94 03/19/17 07:00 92 16 142/90 93 03/19/17 06:00 91 16 144/77 95 03/19/17 05:45 97.8 F 90 14 145/80 95 Results - Laboratory Findings CBC and BMP: 03/19/17 05:55 03/19/17 04:25 PT/INR, D-dimer PT 21.0 Seconds (9.4-12.1) H 03/19/17 04:25 Abnormal lab findings: Abnormal lab results WBC 12.8 K/mcL (4.3-11.1) H 03/19/17 05:55 RBC 2.77 M/mcL (3.82-4.97) L 03/19/17 05:55 Hgb 8.1 g/dL (11.5-15.4) L 03/19/17 05:55 Hct 25.2 % (35.3-44.9) L 03/19/17 05:55 RDW 18.0 % (11.5-14.5) H 03/19/17 05:55 Neutrophils # 10.2 K/mcL (1.6-8.9) H 03/19/17 05:55 Nucleated RBCs/100 WBC 0.2 /100 WBC (0) H 03/19/17 05:55 PT 21.0 Seconds (9.4-12.1) H 03/19/17 04:25 Sodium 135 mEq/L (136-145) L 03/19/17 04:25 Potassium 5.0 mEq/L (3.5-4.5) H 03/19/17 04:25 BUN 113 mg/dL (7-20) H D 03/19/17 04:25 Creatinine 3.93 mg/dL (0.57-1.11) H 03/19/17 04:25 Est GFR ( Amer) 14 (> 60) L 03/19/17 04:25 Est GFR (Non-Af Amer) 12 (> 60) L 03/19/17 04:25 BUN/Creatinine Ratio 29 (6-26) H 03/19/17 04:25 Glucose 259 mg/dL (70-99) H 03/19/17 04:25 POC Glucose 290 (58-89) H 03/19/17 05:30 Calculated Osmolality 325 (280-300) H 03/19/17 04:25 Ionized Calcium 1.07 mmol/L (1.15-1.35) L 03/19/17 04:25 Phosphorus 7.5 mg/dL (2.3-4.7) H 03/19/17 04:25 Total Bilirubin 2.1 mg/dL (0.2-1.2) H D 03/19/17 04:25 Direct Bilirubin 1.3 mg/dL (0.0-0.5) H 03/19/17 04:25 AST 97 Units/L (5-34) H 03/19/17 04:25 Albumin 2.5 g/dL (3.5-5.0) L D 03/19/17 04:25 Globulin 4.4 g/dL (2.4-3.5) H 03/19/17 04:25 Albumin/Globulin Ratio 0.6 (1.1-2.2) L 03/19/17 04:25 Urine Clarity Cloudy (Clear) A 03/18/17 23:58 Urine Protein 30 mg/dL (Neg-Trace) H 03/18/17 23:58 Urine Blood Large (Negative) H 03/18/17 23:58 Ur Leukocyte Esterase Large (Negative) H 03/18/17 23:58 - Clinical Findings Intake & Output: Intake & Output 03/18/17 03/19/17 03/19/17 23:59 07:59 15:59 Intake Total 0 / 0 1784 / 1784 Output Total 500 / 500 175 / 175 Balance 0 / 0 1284 / 1284 -175 / -175 Weight 87.3 kg 87.3 kg Consult Discharge Plan - Plan Referrals: NO,PCP [Primary Care Provider] - - Attending Attestation I examined this patient and my medical decision-making was reviewed with the RESIDENCE DIRECTOR/PA/Advanced Practice Nurse/Resident Physician. I agree with the documented findings, disposition and treatment plan as described except to the extent set forth below. Patient seen and examined at bedside Labs, radiology, chart personally reviewed. All lines examined without evidence of infection. Neuropsych: Awake and alert. focus on sleep wake cycle maint. Pulm: Chronic O2 need at home but no significant O2 need at present. goal sats > 88% Cards: Hemorrhagic Shock Resolved. Lactate has normalized MAP goal >60. after fluid resuscitation. FEN-GI: NPO for now. history of PUD with suspected UGI hemorrhage. cont PPI gtt. GI consult for endoscopy Renal:: JULIET on CKD nephrology consult for possible need of dialysis. mild hyperkalemia repeat BMP pending. ID: Coverage for Gi hemorrhage bu tno history of varices. D/c and monitor.. Heme/Onc:. Super therapeutic INR s/t to warfarin INR coagulopathy is being corrected. Acute blood loss anemia. Transfuse for goal hgb >7.0. SCDs for DVT prophylaxis. Repeat H/H q6. Endo: glucose monitored Integ/MSK: Skin care per ICU protocol. CODE: Full <Sharmaine Alvares - Last Filed: 03/19/17 14:07> Date of Encounter: 03/19/17 Time of Encounter: 08:48 Assessment and Plan (1) Hemorrhagic shock Current Visit: Yes Status: Acute Etiology likely secondary to bleeding gastric ulcers Patient had Hg of 3.8 At [facility] prior to arrival. She had recently had EGD done on 02/11/17 which showed non bleeding gastric ulcers with no stigmata of bleeding. biopsies showed erosion, negative for gastritis or H.Pylori in routine sections. Normal duodenum. s/p transfusion of 4 units prbc, 4 units FFP, 10mg vitamin K H/H increased appropriately after transfusion. CXR showed no gas under the diaphragm. Evaluated for EGD by GI, which patient is not interested in at this time. Plan: keep NPO will transfuse another 2 units FFP continue protonix drip will re consider EGD if patient becomes unstable. hold coumadin and aspirin discontinued cipro and flagyl. re check H/H Q6H, monitor renal function. Appreciate nephrology recommendations. (2) Anemia associated with acute blood loss Current Visit: No Status: Acute etiology likely secondary to hemorrhagic shock. Plan as above. (3) CKD (chronic kidney disease) Current Visit: Yes Status: Acute JULIET superimposed on CKD stage 4/5 Cr. 3.82, baseline about 2.8 potassium normal, serum bicarb improved. Plan: appreciate nephrology recommendations, they do not recommend dialysis at this time. Qualifiers: Chronic kidney disease stage: stage 4 (severe) Qualified Code(s): N18.4 - Chronic kidney disease, stage 4 (severe) (4) Supratherapeutic INR Current Visit: Yes Status: Acute current INR 2.8, repeat was 2.1. Patient received total of 4 units packed red blood cells, 4 units FFP, 10mg vitamin K Plan: will transfuse additional 2 units FFP. (5) Lactic acidosis Current Visit: Yes Status: Acute initial lactic acid 9.2, currently 1.8 initial bicarb 10, since resolved to 22. etiology likely secondary to hemorrhagic shock. continue to trend CBC, BMP (6) Peptic ulcer disease Current Visit: Yes Status: Acute plan as #1 above (7) Atrial fibrillation Current Visit: Yes Status: Acute Patient has hx of Afib, was on warfarin prior, but this was discontinued last week by her doctor due to multiple issues with bruising. Patient takes Coreg at home. Currently HR in 80s. hold Coreg and monitor. Qualifiers: Atrial fibrillation type: paroxysmal Qualified Code(s): I48.0 - Paroxysmal atrial fibrillation (8) Hypertension Current Visit: Yes Status: Acute hold Losartan, furosemide for hemorrhagic shock. blood pressures well controlled at this time. Qualifiers: Hypertension type: essential hypertension Qualified Code(s): I10 - Essential (primary) hypertension (9) Type 2 diabetes mellitus Current Visit: Yes Status: Acute hold oral home meds. switched from low to medium dose SSI. Q6H accuchecks. Qualifiers: Diabetes mellitus complication status: without complication Diabetes mellitus senior care insulin use: without termite control technician use Qualified Code(s): E11.9 - Type 2 diabetes mellitus without complications (10) Heart failure with preserved ejection fraction Current Visit: Yes Status: Acute last echo from 02/10/17 showed LVEF 55-60%, normal LV chamber size and wall thickness, basal inferior segment appeared hypokinetic, otherwise normal LV systolic function. moderate LV diastolic dysfunction, normal RV structure and function, mild-moderate mitral regurg, no evidence of pulmonary hypertension. Plan: hold home lasix, as patient is in hemorrhagic shock. continue to monitor. (11) DVT prophylaxis Current Visit: No Status: Acute EPCDs Neuro: currently A&Ox3, mentating well. no concerns at this time. Pulm: CXR showed increased vascular markings, atalectasis. Cardiac: Hx of Afib, stopped coumadin last week. currently rate controlled. Hx of HF with preserved EF, hold lasix secondary to hemorrhagic shock. GI/Fluids: NG tube pulled this morning. History of gastric ulcers Renal: Baseline CKD stage 4/5. JULIET on CKD. consult to nephrology for recommendations and possible dialysis if needed. ID: have discontinued cipro and flagyl. blood cultures x2 pending. UA showed presence of blood. repeat UA with micro pending. Bilateral foot wounds. will get wound care if needed. Heme/onc: H/H increased appropriately after blood transfusion. will re check H/ H Q6H, recheck INR. EPCDs for DVT ppx Endocrine: Hx of T2DM, increased from low to medium dose SSI for elevated blood glucose levels. Lines: right femoral, vargas catheter, left peripheral. History of Present Illness Consult date: 03/19/17 Requesting physician: Breezy Calix Reason for consult: other (hemorrhagic shock) Chief complaint: hematemesis History of present illness: 62 year old female with PMHx of Afib (was on coumadin previously, stopped last week), gastric ulcers, diastolic CHF, CKD stage 4/5. Patient was admitted overnight with CC of hematemesis. Patient states that since Saturday she has had about 3-4 episodes of bloody vomiting. She recently had endoscopy on 02/11/17 showing multiple non bleeding ulcers. Patient states that last , her PCP had took her off coumadin because she had multiple bruises on her back. Two weeks ago, she was placed on antibiotic for pneumonia that she has stopped several days ago (does not know which kind of antibiotic she was taking) . She states she cannot remember if she has dark/tarry stools or not. SHe denies blood in her urine, denies hemoptysis. Patient was admitted to ICU for hemorrhagic shock, and critical care conslted shortly afterwards. Patient presented as a transfer from [facility] ED. Apparently her initial Hg on presentation was 3.8, but there are no records of that. She received a total of 4 units packed red blood cells, 4 units FFP, and 10mg vitamin K. Past Med Surg Social Fam HX - Past Medical History Medical history: arthritis, atrial fibrillation, cancer, CHF, coronary artery disease, diabetes, GI bleed, hypertension, myocardial infarction, osteoporosis, renal disease Psychiatric history: no psych history - Past Surgical History Surgical History: cholecystectomy, coronary bypass (CABG) - Social History Smoking Status: Current every day smoker Packs per day: quit 2 months ago Smokeless Tobacco Status: No Alcohol use: none Drug use: none - Family History Mother Family Member Ethnicity: Non- Living Status: Age at : 88 Cause of : open heart surgery complications Hx Family Cardiac Disorders: Yes Hx Family Respiratory Disorders: No Hx Family Cancer: No Hx Family GI Disorders: No All Systems: A 10-system review of systems was performed and is negative for pertinent findings except as documented above in the HPI. - Constitutional Constitutional: fatigue, no chills - EENT Nose, mouth and throat: dry mouth - Cardiovascular Cardiovascular: leg edema, no chest pain, no chest pain at rest, no chest pain with activity, no syncope - Respiratory Respiratory: no cough, no hemoptysis - Gastrointestinal Gastrointestinal: no abdominal pain, no diarrhea - Genitourinary Genitourinary: no urinary frequency, no urinary incontinence - Musculoskeletal Musculoskeletal: no weakness - Integumentary Integumentary: no jaundice - Neurological Neurological: no headache(s), no syncope - Hematologic/Lymphatic Hematologic/Lymphatic: easy bruising Physical Examination Vital Signs: Vital Signs, Last 4 Hours Temp Pulse Resp BP Pulse Ox 03/19/17 06:00 91 16 144/77 95 03/19/17 05:45 97.8 F 90 14 145/80 95 03/19/17 05:00 87 14 144/75 97 03/19/17 04:00 98.0 F 98 14 150/90 99 03/19/17 03:50 97.8 F 94 98 150/86 98 03/19/17 03:45 98.0 F 88 14 139/76 100 03/19/17 03:00 88 16 121/66 100 General appearance: no acute distress, alert, lethargic Eyes: nonicteric ENT: oropharynx moist Mallampati (class): 3 Neck: supple, no lymphadenopathy, JVD Effort: normal Inspection: kyphosis Auscultation: bilateral: rales (mild rales bilaterally ) Cardiovascular: regular rate and rhythm Gastrointestinal: hypoactive bowel sounds, soft, tender (mild right/epigastric tenderness noted. ) Extremities: no cyanosis, cyanosis, other (+3 pitting edema bilaterally. bilateral foot wounds that are wrapped. ) non-focal exam mood appropriate, affect normal Results - Laboratory Findings CBC and BMP: 03/19/17 10:45 03/19/17 10:45 PT/INR, D-dimer PT 21.0 Seconds (9.4-12.1) H 03/19/17 04:25 Abnormal lab findings: Abnormal lab results WBC 12.2 K/mcL (4.3-11.1) H 03/18/17 22:08 RBC 2.11 M/mcL (3.82-4.97) L 03/18/17 22:08 Hgb 8.0 g/dL (11.5-15.4) L D 03/19/17 05:55 Hct 24.8 % (35.3-44.9) L 03/19/17 05:55 MCHC 30.3 g/dL (31.6-35.5) L 03/18/17 22:08 RDW 19.1 % (11.5-14.5) H 03/18/17 22:08 Neutrophils # 9.4 K/mcL (1.6-8.9) H 03/18/17 22:08 Nucleated RBCs/100 WBC 0.2 /100 WBC (0) H 03/18/17 22:08 PT 21.0 Seconds (9.4-12.1) H 03/19/17 04:25 Chloride 110 mEq/L (98-109) H 03/18/17 22:08 Carbon Dioxide 10 mEq/L (19-29) L* 03/18/17 22:08 BUN 88 mg/dL (7-20) H 03/18/17 22:08 Creatinine 2.91 mg/dL (0.57-1.11) H 03/18/17 22:08 Est GFR ( Amer) 20 (> 60) L 03/18/17 22:08 Est GFR (Non-Af Amer) 16 (> 60) L 03/18/17 22:08 BUN/Creatinine Ratio 30 (6-26) H 03/18/17 22:08 Glucose 184 mg/dL (70-99) H 03/18/17 22:08 POC Glucose 290 (58-89) H 03/19/17 05:30 Calculated Osmolality 320 (280-300) H 03/18/17 22:08 Calcium 6.4 mg/dL (8.6-10.8) L 03/18/17 22:08 Ionized Calcium 1.07 mmol/L (1.15-1.35) L 03/19/17 04:25 AST 44 Units/L (5-34) H 03/18/17 22:08 Serum Total Protein 5.4 g/dL (6.0-8.3) L 03/18/17 22:08 Albumin 1.8 g/dL (3.5-5.0) L 03/18/17 22:08 Globulin 3.6 g/dL (2.4-3.5) H 03/18/17 22:08 Albumin/Globulin Ratio 0.5 (1.1-2.2) L 03/18/17 22:08 Urine Clarity Cloudy (Clear) A 03/18/17 23:58 Urine Protein 30 mg/dL (Neg-Trace) H 03/18/17 23:58 Urine Blood Large (Negative) H 03/18/17 23:58 Ur Leukocyte Esterase Large (Negative) H 03/18/17 23:58 - Clinical Findings Intake & Output: Intake & Output 03/18/17 03/18/17 03/19/17 15:59 23:59 07:59 Intake Total 0 / 0 1684 / 1684 Output Total 500 / 500 Balance 0 / 0 1184 / 1184 Weight 87.3 kg 87.3 kg
[2017-03-19 06:23] LABS: Albumin 2.5 g/dL (3.5-5.0); Albumin/Globulin Ratio 0.6 (1.1-2.2); Bilirubin,Direct 1.3 mg/dL (0.0-0.5); Bilirubin,Indirect 0.8 mg/dL (0.0-1.2); Bilirubin,Total 2.1 mg/dL (0.2-1.2); Calcium 8.6 mg/dL (8.6-10.8); Globulin 4.4 g/dL (2.4-3.5); Magnesium 2.1 mg/dL (1.6-2.6); Phosphorous 7.5 mg/dL (2.3-4.7); Total Protein 6.9 g/dL (6.0-8.3)
[2017-03-19 06:56] LABS: Basophils % 0.2 %; Hematocrit 25.2 % (35.3-44.9); Hemoglobin 8.1 g/dL (11.5-15.4); Immature Granulocytes % 0.5 % (0-4); Lymphocytes # 1.5 K/mcL (0.6-4.6); Lymphocytes % 11.7 %; Mean Corpuscular HGB Conc 32.1 g/dL (31.6-35.5); Mean Corpuscular Hemoglobin 29.2 pg (28.0-33.3); Mean Platelet Volume 10.9 fL (9.4-12.4); Monocytes % 7.9 %; Neutrophils # 10.2 K/mcL (1.6-8.9); Nucleated Red Blood Cells 0.2 /100 WBC (0); Platelet Count 213 K/mcL (140-400); Red Blood Count 2.77 M/mcL (3.82-4.97); Segmented Neutrophils % 79.7 %
--- NOTE | 2017-03-19 08:04 | Internal Medicine Consult Note ---
Date of Encounter: 03/19/17 Time of Encounter: 07:58 - Assessment and Plan (1) Gastric ulcer Current Visit: Yes Status: Acute Assessment and plan: I suspect that once her INR raised sign. she bled from Ulcers noted one month ago.. the ASA is also a cont. factor. I did recommend EGD today to further quide therapy, but she does not want at this time.. if she were to become unstable/re-bleed we would have to revisit the question urgently Will Cont. the IV PPI therapy, hold all ASA and Coumadin. I will redose the Vit. K. I do believe it would be beneficial to check a Gasrtin level as there is no obvious reason to have PUD. I will see her again tomorrow and see if she wants EGD at that time.. Will pull the NG and give Ice chips and water today. 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 Current Visit: Yes Status: Resolved (7) Protein calorie malnutrition Current Visit: Yes Status: Chronic (8) Diabetes mellitus Current Visit: Yes Status: Acute Qualifiers: Diabetes mellitus type: type 2 Diabetes mellitus complication status: with kidney complications Diabetes mellitus complication detail: with chronic kidney disease Qualified Code(s): E11.22 - Type 2 diabetes mellitus with diabetic chronic kidney disease; N18.4 - Chronic kidney disease, stage 4 (severe ); Z79.4 - halfway (current) use of insulin (9) Paroxysmal a-fib Current Visit: Yes Status: Acute Internal Medicine - CN: HPI - Data of Consult Patient: new to practice Consult date: 03/19/17 Requesting Physician: Vinny Tanner MD - Consult Narrative Reason for consult: GI Bleeding History of present illness: Ms. Calvillo is a 62 year old female presented to [facility] yesterday AM after having two days of coffee ground emesis.. She feels much better this AM.. has received 4 Units FFP and 4 Units of Blood. I believe her presenting HGB was a bit over 3.5. The other finding at the initial ED was an INR greater than 15. She has no abd. pain, no change in her bowels. NG is in place with bilious material.. no blood after being flushed. She was discharged about 4 weeks ago with GI bleeding and found to have multiple , clean based ulcers in the stomach. H. Pylori was negative. Past Med Surg Social Fam HX - Past Medical History Medical history: arthritis, atrial fibrillation, cancer, CHF, coronary artery disease, diabetes, GI bleed, hypertension, myocardial infarction, osteoporosis, renal disease, other (Gastric Ulcers) Psychiatric history: no psych history - Past Surgical History Surgical History: cholecystectomy, coronary bypass (CABG) - Social History Smoking Status: Current every day smoker Packs per day: quit 2 months ago Smokeless Tobacco Status: No Alcohol use: none Drug use: none - Family History Mother Family Member Ethnicity: Non- Living Status: Age at : 88 Cause of : open heart surgery complications Hx Family Cardiac Disorders: Yes Hx Family Respiratory Disorders: No Hx Family Cancer: No Hx Family GI Disorders: No - Constitutional Constitutional: no chills, no fever(s), no falls, no lethargy, no weakness, no weight loss - Cardiovascular Cardiovascular ROS IM: irregular heart rhythm, no chest pain, no diaphoresis, no dyspnea, no lightheadedness, no syncope - Respiratory Respiratory: no cough, no dyspnea, no chest congestion - Gastrointestinal Gastrointestinal: coffee ground emesis, loose stools, nausea, no abdominal pain , no change in stool character, no cramping, no diarrhea, no heartburn, no hematochezia - Integumentary Integumentary IM: skin ulcer (Ulcers reported on the Dorsum of the feet.), no erythema - Neurological Neurological ROS: no confusion, no frequent falls Internal Medicine - CN: Meds Aspirin Enteric Coated [Aspirin EC] 81 mg PO DAILY 02/10/17 [History] Calcitriol [Rocaltrol] 0.25 mcg PO DAILY 02/10/17 [History] Carvedilol [Coreg] 25 mg PO DAILY 02/10/17 [History] Cyanocobalamin (Vitamin B-12) [Vitamin B-12] 100 mcg PO DAILY 02/10/17 [History] Ergocalciferol (VITAMIN D2) [Vitamin D] 800 unit PO DAILY 02/10/17 [History] Linagliptin [Tradjenta] 5 mg PO DAILY 02/10/17 [History] Losartan Potassium [Cozaar] 100 mg PO DAILY 02/10/17 [History] Rosuvastatin Calcium [Crestor] 5 mg PO HS 02/10/17 [History] Furosemide [Lasix] 20 mg PO BID #60 tablet 02/14/17 [Rx] Omeprazole [PriLOSEC] 20 mg PO BIDAC #60 capsule. 02/14/17 [Rx] Sodium Bicarbonate 650 mg PO BID #60 tablet 02/14/17 [Rx] Sucralfate [Carafate] 1 gm PO QIDAC #80 tablet 02/14/17 [Rx] Pioglitazone [Actos] 15 mg PO DAILY 03/18/17 [History] Allergies Penicillins Allergy (Severe, Verified 03/18/17 22:37) Swelling of Lip/Tongue/Throat Internal Medicine - CN: Exam - Constitutional Vitals: Temp Pulse Resp BP Pulse Ox 97.8 F 91 16 144/77 95 03/19/17 05:45 03/19/17 06:00 03/19/17 06:00 03/19/17 06:00 03/19/17 06:00 General appearance IM: Present: cooperative, disheveled, A&O X 2, pleasant, no acute distress, obese - Head Head exam: Present: atraumatic - Eye Eye exam: Present: EOMI, sclera anicteric. Absent: conjuntiva pink - Neck Neck exam general surgery: Present: normal inspection, trachea midline - Respiratory Respiratory exam: Present: decreased breath sounds, prolonged expiratory phase, rhonchi - Cardiovascular Cardiovascular exam IM: Present: distant heart sounds, RRR. Absent: JVD - GI/Abdominal GI/Abdominal exam IM: Present: hypoactive bowel sounds, soft. Absent: hepatomegaly, mass, rebound, rigid, tenderness - Rectal Rectal exam: Present: deferred - Extremities Exam Extremities exam IM: Present: pedal edema Internal Medicine - CN: Reslt - Labs CBC & Chem 7: 03/19/17 05:55 03/19/17 04:25 Labs: Short CBC 03/18/17 03/19/17 03/19/17 Range/Units 22:08 01:01 05:55 WBC 12.2 H (4.3-11.1) K/mcL Hgb 6.1 L 5.8 L* 8.0 L D (11.5-15.4) g/dL Hct 20.1 L 18.9 L 24.8 L (35.3-44.9) % Plt Count 270 (140-400) K/mcL Neutrophils # 9.4 H (1.6-8.9) K/mcL 03/19/17 Range/Units 05:55 WBC 12.8 H (4.3-11.1) K/mcL Hgb 8.1 L (11.5-15.4) g/dL Hct 25.2 L (35.3-44.9) % Plt Count 213 (140-400) K/mcL Neutrophils # 10.2 H (1.6-8.9) K/mcL BMP 03/18/17 03/19/17 22:08 04:25 Sodium 139 135 L Potassium 4.5 5.0 H Chloride 110 H 98 Carbon Dioxide 10 L* 22 BUN 88 H 113 H D Creatinine 2.91 H 3.93 H Glucose 184 H 259 H Calcium 6.4 L 8.6 D Liver Function 03/18/17 03/19/17 Range/Units 22:08 04:25 Total Bilirubin 1.2 2.1 H D (0.2-1.2) mg/dL Direct Bilirubin 1.3 H (0.0-0.5) mg/dL AST 44 H 97 H (5-34) Units/L ALT 27 55 (0-55) Units/L Alkaline Phosphatase 73 105 (38-126) Units/L Albumin 1.8 L 2.5 L D (3.5-5.0) g/dL Urine 03/18/17 Range/Units 23:58 Urine Color Yellow (Yellow) Urine Clarity Cloudy A (Clear) Urine pH 5.5 (5.0-8.0) pH Units Ur Specific [place] 1.017 (1.010-1.025) Urine Protein 30 H (Neg-Trace) mg/dL Urine Glucose (UA) Normal (Normal) mg/dL - ABG Interpretation ABG results: PT/INR, D-dimer PT 21.0 Seconds (9.4-12.1) H 03/19/17 04:25 - Impressions Impressions Chest X-Ray 03/18/17 21:58 IMPRESSION: 1. No subdiaphragmatic free air. 2. Stable left base atelectasis/scarring. D/ / Daniele Rankin MD / Daniele Rankin MD Interpreting Provider: Daniele Rankin MD X-Ray 03/18/17 21:59 IMPRESSION: Appropriate positioning of NGT. D/ / Edu Huber MD / Edu Huber MD Interpreting Provider: Edu Huber MD Consult Discharge Plan - Plan Referrals: NO,PCP [Primary Care Provider] -
[2017-03-19] MEDS ORDERED: *HR* Phytonadione 10 MG/ML AMPUL SQ ONE (08:18)
[2017-03-19] MEDS ORDERED: Calcium Gluconate 2,000 MG in D5% in Water 100 ML IVPB ONE (08:39)
[2017-03-19 11:16] LABS: Bilirubin,Urine Negative (Negative); Blood,Urine Large (Negative); Clarity,Urine Turbid (Clear); Color,Urine Yellow (Yellow); Glucose,Urine (UA) Normal (Normal); Ketones,Urine Negative (Negative); Leukocyte Esterase,Urine Large (Negative); Nitrite,Urine Negative (Negative); PH,Urine 5.5 pH Units (5.0-8.0); Protein,Urine 30 mg/dL (Neg-Trace); Specific Gravity,Urine 1.014 (1.010-1.025); Urobilinogen,Urine Normal (Normal)
[2017-03-19 11:17] LABS: Basophils % 0.1 %; Eosinophils % 0.2 %; Hematocrit 24.4 % (35.3-44.9); Hemoglobin 8.1 g/dL (11.5-15.4); Immature Granulocytes % 0.7 % (0-4); Lymphocytes # 1.9 K/mcL (0.6-4.6); Lymphocytes % 13.9 %; Mean Corpuscular HGB Conc 33.2 g/dL (31.6-35.5); Mean Corpuscular Hemoglobin 30.1 pg (28.0-33.3); Mean Corpuscular Volume 90.7 fL (83.0-100.0); Mean Platelet Volume 10.5 fL (9.4-12.4); Monocytes # 1.5 K/mcL (0.0-1.3); Monocytes % 10.9 %; Neutrophils # 10.1 K/mcL (1.6-8.9); Nucleated Red Blood Cells 0.4 /100 WBC (0); Platelet Count 209 K/mcL (140-400); Red Blood Count 2.69 M/mcL (3.82-4.97); Red Cell Distribution Width 18.7 % (11.5-14.5); Segmented Neutrophils % 74.2 %
[2017-03-19 11:22] LABS: Bacteria,Urine None Seen per hpf (None-Few); Squamous Epithelial Cell,Urine Many per lpf (None-Few); WBC,Urine TNTC per hpf (0-3)
[2017-03-19 11:29] LABS: Calcium 8.8 mg/dL (8.6-10.8); Potassium 4.5 mEq/L (3.5-4.5)
[2017-03-19 11:34] LABS: RBC,Urine 15-30 per hpf (0-3); Yeast,Urine Many per hpf (None Seen)
[2017-03-19] MEDS ORDERED: 0.9 % Sodium Chloride 500 ML ONE (12:11)
--- NOTE | 2017-03-19 12:34 | Nephrology Consult Note ---
Date of Encounter: 03/19/17 Time of Encounter: 12:32 Assessment and Plan (1) Acute kidney injury superimposed on CKD Current Visit: No Status: Acute Patient has acute kidney injury superimposed on stage IV chronic kidney disease in the setting of upper GI bleeding. She was diagnosed with gastric ulcers last month when she presented with upper GI bleed and underwent a EGD. Currently she continues to undergo treatment with fresh frozen plasma to reverse her elevated PT/INR. Her hemoglobin is being monitored closely. Most recent hemoglobin is 8.1. Hopefully with the quaker of her blood volume will lead to improvement in her renal function. We will continue to monitor her closely. There is no acute indication for dialysis at this time. Potassium is normal. Her serum bicarbonate has improved. (2) Chronic kidney disease, stage IV (severe) Current Visit: Yes Status: Acute (3) UGI bleed Current Visit: No Status: Acute (4) Supratherapeutic INR Current Visit: Yes Status: Acute History of Present Illness - History of Present Illness This is a 62-year-old female who is followed as an outpatient for stage IV chronic kidney disease in the setting of hypertension and diabetes. Patient's baseline creatinine is around 2.8 GFR is around 20. Patient was hospitalized back on February 09 with upper GI bleeding. At that time she had acute kidney injury superimposed on her chronic kidney disease. Creatinine peaked at 3.66. Patient was subsequently discharged home. She will continued on Coumadin for her A. fib. She did not have her PT/INR checked. She subsequently had several days of hematemesis with minimal epigastric discomfort. She was seen in [facility] ER and reportedly had a hemoglobin of 3.8. She received 2 units of blood hemoglobin came up to 6.1. She now once again has acute kidney injury superimposed on chronic kidney disease. Her creatinine is now up to 3.82. She is making urine. She did present with a lactic acidosis. It has now normalized. An EGD done back in February showed gastric ulcers. Currently the patient says she is feeling okay. Her hemoglobin is up to 8.1 and appears stable. She has some mild epigastric discomfort. She is requesting something to eat. Past Med Surg Social Fam HX - Past Medical History Medical history: arthritis, atrial fibrillation, cancer, CHF, coronary artery disease, diabetes, GI bleed, hypertension, myocardial infarction, osteoporosis, renal disease Psychiatric history: no psych history - Past Surgical History Surgical History: cholecystectomy, coronary bypass (CABG) - Social History Smoking Status: Current every day smoker Packs per day: quit 2 months ago Smokeless Tobacco Status: No Alcohol use: none Drug use: none - Family History Mother Family Member Ethnicity: Non- Living Status: Age at : 86 Cause of : open heart surgery complications Hx Family Cardiac Disorders: Yes Hx Family Respiratory Disorders: No Hx Family Cancer: No Hx Family GI Disorders: No Medications and Allergies Aspirin Enteric Coated [Aspirin EC] 81 mg PO DAILY 02/10/17 [History] Calcitriol [Rocaltrol] 0.25 mcg PO DAILY 02/10/17 [History] Carvedilol [Coreg] 25 mg PO DAILY 02/10/17 [History] Cyanocobalamin (Vitamin B-12) [Vitamin B-12] 100 mcg PO DAILY 02/10/17 [History] Ergocalciferol (VITAMIN D2) [Vitamin D] 800 unit PO DAILY 02/10/17 [History] Linagliptin [Tradjenta] 5 mg PO DAILY 02/10/17 [History] Losartan Potassium [Cozaar] 100 mg PO DAILY 02/10/17 [History] Rosuvastatin Calcium [Crestor] 5 mg PO HS 02/10/17 [History] Furosemide [Lasix] 20 mg PO BID #60 tablet 02/14/17 [Rx] Omeprazole [PriLOSEC] 20 mg PO BIDAC #60 capsule. 02/14/17 [Rx] Sodium Bicarbonate 650 mg PO BID #60 tablet 02/14/17 [Rx] Sucralfate [Carafate] 1 gm PO QIDAC #80 tablet 02/14/17 [Rx] Pioglitazone [Actos] 15 mg PO DAILY 03/18/17 [History] Allergies Penicillins Allergy (Severe, Verified 03/18/17 22:37) Swelling of Lip/Tongue/Throat Review of Systems Constitutional: no excessive sweating, no weight loss Eyes: bilateral: blurred vision (patient denies), diplopia (patient denies) Nose, mouth and throat: no dizziness, no headache(s) Cardiovascular: dyspnea on exertion, edema Respiratory: dyspnea on exertion Gastrointestinal: abdominal pain, hematemesis, no change in bowel habits Musculoskeletal: no muscle weakness, no numbness Integumentary: skin ulcer Neurological: as per HPI Psychiatric: no depression, no difficulty concentrating Endocrine: as per HPI Hematologic/Lymphatic: no easy bruising, no lymphadenopathy Exam - Vital Signs Vital signs: Initial Vital Signs Temp Pulse Resp BP Pulse Ox 97.7 F 99 16 139/86 100 03/18/17 21:55 03/18/17 21:55 03/18/17 21:55 03/18/17 21:55 03/18/17 21:55 Vital Signs - Last 8 Hours Temp Pulse Resp BP Pulse Ox 03/19/17 12:27 97.6 F 03/19/17 12:24 97.6 F 85 20 141/74 03/19/17 11:00 97.6 F 78 18 129/71 97 03/19/17 10:00 81 18 136/73 97 03/19/17 09:00 81 18 131/73 97 03/19/17 08:11 98.0 F 03/19/17 08:00 98.0 F 87 18 160/125 94 03/19/17 07:00 92 16 142/90 93 03/19/17 06:00 91 16 144/77 95 03/19/17 05:45 97.8 F 90 14 145/80 95 03/19/17 05:00 87 14 144/75 97 Intake and Output 03/18/17 03/19/17 03/19/17 23:59 07:59 15:59 Intake Total 0 / 0 1784 / 1784 406 / 406 Output Total 500 / 500 375 / 375 Balance 0 / 0 1284 / 1284 31 / 31 Intake: IV Fluids 410 / 410 100 / 100 Protonix 40 MG In 0.9 % 100 / 100 100 / 100 Sodium Chloride (Mini-Bag +) 100 ML @ 20 mls/hr IVC .Q5H DIANE Rx#: [id number] Calcium Chloride 1,000 MG 110 / 110 In 0.9 % Sodium Chloride 100 ML @ 100 mls/hr IVPB ONCE ONE Rx#:[id number] Cipro Premix 200 MG/100 100 / 100 ML 200 mg In 100 ml @ 100 mls/hr IVPB Q12HR DIANE Rx #:[id number] Flagyl Premix 500 MG/100 100 / 100 ML 500 mg In 100 ml @ 100 mls/hr IVPB Q8HR DIANE Rx# :[id number] Blood Product 0 / 0 1374 / 1374 306 / 306 Plasma Unit 306 / 306 [id number] Plasma Unit 0 / 0 350 / 350 [id number] Plasma Unit 350 / 350 [id number] Rbcs Leuko Poor As-1 324 / 324 Unit [id number] Rbcs Leuko Poor As-1 350 / 350 Unit [id number] Output: Catheter 500 / 500 375 / 375 Other: # Bowel Movements 0 Weight 87.3 kg 87.3 kg Blood Glucose* 241 Patient Weight 03/19/17 23:59 Weight 87.3 kg - General Appearance Exam: Patient seen and examined in the intensive care unit. She is in no acute distress. She is alert and oriented. Blood pressure 129/71. [place] catheter is in place. Neck is supple. Carotids demonstrate bruits. Lungs diminished breath sounds. Heart regular rate and rhythm with a 2/6 soft ejection murmur. Abdomen demonstrates normal bowel sounds. There is some mild epigastric tenderness. There is no guarding or rigidity. Extremities show 2+ lower extremity swelling. Results - Lab Results 03/19/17 10:45 03/19/17 10:45 Most recent lab results Calcium 8.8 mg/dL (8.6-10.8) 03/19/17 10:45 Phosphorus 7.5 mg/dL (2.3-4.7) H 03/19/17 04:25 Magnesium 2.1 mg/dL (1.6-2.6) 03/19/17 04:25 Consult Discharge Plan - Plan Referrals: NO,PCP [Primary Care Provider] -
[2017-03-19 16:33] LABS: Basophils % 0.1 %; Eosinophils # 0.1 K/mcL (0.0-0.6); Eosinophils % 0.6 %; Hematocrit 24.2 % (35.3-44.9); Hemoglobin 7.8 g/dL (11.5-15.4); Immature Granulocytes % 0.5 % (0-4); Lymphocytes # 1.8 K/mcL (0.6-4.6); Mean Corpuscular HGB Conc 32.2 g/dL (31.6-35.5); Mean Corpuscular Hemoglobin 29.4 pg (28.0-33.3); Mean Corpuscular Volume 91.3 fL (83.0-100.0); Mean Platelet Volume 10.5 fL (9.4-12.4); Monocytes # 1.3 K/mcL (0.0-1.3); Monocytes % 9.3 %; Neutrophils # 10.2 K/mcL (1.6-8.9); Nucleated Red Blood Cells 0.4 /100 WBC (0); Platelet Count 213 K/mcL (140-400); Red Blood Count 2.65 M/mcL (3.82-4.97); Red Cell Distribution Width 19.7 % (11.5-14.5); Segmented Neutrophils % 76.5 %
[2017-03-19 16:38] LABS: INR 1.5; Prothrombin Time 15.9 Seconds (9.4-12.1)
[2017-03-20] MEDS: Insulin LISPRO 300 UNITS/3 ML VIAL SQ SCH ×4 (00:45→18:10)
[2017-03-20 01:19] LABS: Hematocrit 24.7 % (35.3-44.9); Hemoglobin 7.9 g/dL (11.5-15.4); Mean Corpuscular Volume 92.5 fL (83.0-100.0); Red Blood Count 2.67 M/mcL (3.82-4.97)
[2017-03-20 01:20] LABS: Basophils % 0.2 %; Eosinophils # 0.1 K/mcL (0.0-0.6); Immature Granulocytes % 0.5 % (0-4); Lymphocytes # 1.9 K/mcL (0.6-4.6); Lymphocytes % 14.1 %; Mean Corpuscular Hemoglobin 29.6 pg (28.0-33.3); Mean Platelet Volume 10.5 fL (9.4-12.4); Monocytes # 1.2 K/mcL (0.0-1.3); Monocytes % 8.9 %; Neutrophils # 9.9 K/mcL (1.6-8.9); Nucleated Red Blood Cells 0.2 /100 WBC (0); Platelet Count 216 K/mcL (140-400); Red Cell Distribution Width 19.5 % (11.5-14.5); Segmented Neutrophils % 75.3 %
[2017-03-20 01:24] LABS: INR 1.4; Prothrombin Time 15.5 Seconds (9.4-12.1)
[2017-03-20] MEDS: Pantoprazole 40 MG in 0.9 % Sodium Chloride Mini Bag 100 ML IVC SCH ×6 (02:21→23:59)
[2017-03-20 04:45] LABS: Basophils % 0.2 %; Eosinophils # 0.2 K/mcL (0.0-0.6); Eosinophils % 1.4 %; Hematocrit 24.2 % (35.3-44.9); Hemoglobin 7.7 g/dL (11.5-15.4); Immature Granulocytes % 0.5 % (0-4); Lymphocytes # 1.9 K/mcL (0.6-4.6); Lymphocytes % 14.8 %; Mean Corpuscular HGB Conc 31.8 g/dL (31.6-35.5); Mean Corpuscular Hemoglobin 29.7 pg (28.0-33.3); Mean Corpuscular Volume 93.4 fL (83.0-100.0); Mean Platelet Volume 10.6 fL (9.4-12.4); Monocytes # 1.2 K/mcL (0.0-1.3); Monocytes % 9.2 %; Neutrophils # 9.7 K/mcL (1.6-8.9); Platelet Count 208 K/mcL (140-400); Red Blood Count 2.59 M/mcL (3.82-4.97); Red Cell Distribution Width 19.7 % (11.5-14.5); Segmented Neutrophils % 73.9 %
[2017-03-20 04:48] LABS: INR 1.4; Prothrombin Time 15.1 Seconds (9.4-12.1)
[2017-03-20 04:58] LABS: Ionized Calcium 1.11 mmol/L (1.15-1.35)
[2017-03-20 04:59] LABS: Calcium 8.5 mg/dL (8.6-10.8); Phosphorous 6.6 mg/dL (2.3-4.7); Potassium 4.2 mEq/L (3.5-4.5)
--- NOTE | 2017-03-20 06:20 | Pulmonology Progress Note ---
<Sharmaine Alvares - Last Filed: 03/20/17 09:07> Date of Encounter: 03/20/17 Time of Encounter: 07:08 Assessment and Plan (1) Hemorrhagic shock Current Visit: Yes Status: Acute Etiology likely secondary to bleeding gastric ulcers Patient had Hg of 3.8 At [facility] prior to arrival. She had recently had EGD done on 02/11/17 which showed non bleeding gastric ulcers with no stigmata of bleeding. biopsies showed erosion, negative for gastritis or H.Pylori in routine sections. Normal duodenum. s/p transfusion of 4 units prbc, 4 units FFP, 10mg vitamin K H/H increased appropriately after transfusion. CXR showed no gas under the diaphragm. Evaluated for EGD by GI, which patient is not interested in at this time. Plan: No EGD at this time, as patient continues to refuse. Appreciate GI recommendations. continue protonix drip for another 24 hours. will re consider EGD if patient becomes unstable. hold coumadin and aspirin continue to monitor H/H and renal function. Nephro on board. diet advanced to full liquid. IV iron given today. CHeck urine protein/Cr ratio patient had microscopic hematuria on urinalysis in setting of increased INR. should repeat urinalysis. If still shows RBCs, patient would benefit from cystoscopy. (2) Anemia associated with acute blood loss Current Visit: No Status: Acute etiology likely secondary to hemorrhagic shock. Plan as above. (3) CKD (chronic kidney disease) Current Visit: Yes Status: Acute JULIET superimposed on CKD stage 4/5 Cr. 3.88, baseline about 2.8 potassium normal, serum bicarb improved. Plan: appreciate nephrology recommendations, they do not recommend dialysis at this time. Qualifiers: Chronic kidney disease stage: stage 4 (severe) Qualified Code(s): N18.4 - Chronic kidney disease, stage 4 (severe) (4) Supratherapeutic INR Current Visit: Yes Status: Acute resolved. current INR 1.4 continue to monitor. (5) Lactic acidosis Current Visit: Yes Status: Resolved initial lactic acid 9.2, decreased to 1.8 initial bicarb 10, since resolved to 22. etiology likely secondary to hemorrhagic shock. continue to trend CBC, BMP (6) Peptic ulcer disease Current Visit: Yes Status: Acute plan as #1 above (7) Atrial fibrillation Current Visit: Yes Status: Acute Patient has hx of Afib, was on warfarin prior, but this was discontinued last week by her doctor due to multiple issues with bruising. Patient takes Coreg at home. Currently HR in 80s. HAS-BLED score: 4, high risk for major bleeding. Plan: hold Coreg and monitor. continue to hold warfarin at this time. Qualifiers: Atrial fibrillation type: paroxysmal Qualified Code(s): I48.0 - Paroxysmal atrial fibrillation (8) Hypertension Current Visit: Yes Status: Acute hold Losartan, furosemide for hemorrhagic shock. blood pressures well controlled at this time. Qualifiers: Hypertension type: essential hypertension Qualified Code(s): I10 - Essential (primary) hypertension (9) Type 2 diabetes mellitus Current Visit: Yes Status: Acute hold oral home meds. switched from low to medium dose SSI. ACHS accuchecks. Qualifiers: Diabetes mellitus complication status: without complication Diabetes mellitus halfway insulin use: without halfway use Qualified Code(s): E11.9 - Type 2 diabetes mellitus without complications (10) Heart failure with preserved ejection fraction Current Visit: Yes Status: Acute last echo from 02/10/17 showed LVEF 55-60%, normal LV chamber size and wall thickness, basal inferior segment appeared hypokinetic, otherwise normal LV systolic function. moderate LV diastolic dysfunction, normal RV structure and function, mild-moderate mitral regurg, no evidence of pulmonary hypertension. Plan: hold home lasix, as patient is in hemorrhagic shock. continue to monitor. will get urine protein/Cr ratio. (11) DVT prophylaxis Current Visit: No Status: Acute EPCDs Neuro: currently A&Ox3, mentating well. no concerns at this time. Pulm: CXR showed increased vascular markings, atalectasis. Cardiac: Hx of Afib, stopped coumadin last week. currently rate controlled. Hx of HF with preserved EF, hold lasix secondary to hemorrhagic shock. GI/Fluids: NG tube pulled this yesterday. History of gastric ulcers. GI on board. Continue protonix drip for another 24 hours. Advanced to full liquid diet. Renal: Baseline CKD stage 4/5. JULIET on CKD. consult to nephrology, they are following and do not recommend dialysis at this time. Lower extremity pitting edema. will get urine protein/cr ratio. ID: have discontinued cipro and flagyl. prelim blood cultures showed no growth. UA showed presence of blood. Bilateral foot wounds, consult to wound care. Heme/onc: stable H/H. Monitor INR. urinalysis showed presence of RBCs. should repeat UA later on to see if this is sustained. If so, may need cystoscopy. EPCDs for DVT ppx Endocrine: Hx of T2DM, medium dose SSI with ACHS coverag Lines: right femoral, vargas catheter, left peripheral. Subjective Principal diagnosis: hemorrhagic shock Interval history: 62 year old female evaluated at bedside. Patient had no acute events overnight. She denies nausea, vomiting. She is still refusing to get EGD. Likely transfer out of ICU today. Objective PUL Vital signs: Last Vital Signs Temp 97.6 F 03/20/17 04:40 Pulse 88 03/20/17 06:00 Resp 20 03/20/17 06:00 BP 146/73 03/20/17 06:00 Pulse Ox 94 03/20/17 06:00 General appearance: no acute distress, alert Eyes: nonicteric ENT: oropharynx moist Neck: supple, no lymphadenopathy, JVD Effort: normal Auscultation: bilateral: rales Cardiovascular: regular rate and rhythm Gastrointestinal: hypoactive bowel sounds, soft, tender (mild epigastric tenderness) Integumentary: normal Extremities: no cyanosis, edema (+2 bilateral lower extremity edema. ), other ( bilateral wounds present on top part of feet. ) normal mental status mood appropriate Results - Laboratory Findings CBC and BMP: 03/20/17 04:23 03/20/17 04:23 PT/INR, D-dimer PT 15.1 Seconds (9.4-12.1) H 03/20/17 04:23 Abnormal lab findings: Abnormal lab results WBC 13.1 K/mcL (4.3-11.1) H 03/20/17 04:23 RBC 2.59 M/mcL (3.82-4.97) L 03/20/17 04:23 Hgb 7.7 g/dL (11.5-15.4) L 03/20/17 04:23 Hct 24.2 % (35.3-44.9) L 03/20/17 04:23 RDW 19.7 % (11.5-14.5) H 03/20/17 04:23 Neutrophils # 9.7 K/mcL (1.6-8.9) H 03/20/17 04:23 Nucleated RBCs/100 WBC 0.2 /100 WBC (0) H 03/20/17 00:50 ESR 57 mm/hr (0-15) H 03/19/17 16:16 PT 15.1 Seconds (9.4-12.1) H 03/20/17 04:23 BUN 108 mg/dL (7-20) H 03/20/17 04:23 Creatinine 3.88 mg/dL (0.57-1.11) H 03/20/17 04:23 Est GFR ( Amer) 14 (> 60) L 03/20/17 04:23 Est GFR (Non-Af Amer) 12 (> 60) L 03/20/17 04:23 BUN/Creatinine Ratio 28 (6-26) H 03/20/17 04:23 POC Glucose 109 (58-89) H 03/20/17 04:21 Calculated Osmolality 318 (280-300) H 03/20/17 04:23 Calcium 8.5 mg/dL (8.6-10.8) L 03/20/17 04:23 Ionized Calcium 1.11 mmol/L (1.15-1.35) L 03/20/17 04:23 Phosphorus 6.6 mg/dL (2.3-4.7) H 03/20/17 04:23 Total Bilirubin 2.1 mg/dL (0.2-1.2) H D 03/19/17 04:25 Direct Bilirubin 1.3 mg/dL (0.0-0.5) H 03/19/17 04:25 AST 97 Units/L (5-34) H 03/19/17 04:25 Albumin 2.5 g/dL (3.5-5.0) L D 03/19/17 04:25 Globulin 4.4 g/dL (2.4-3.5) H 03/19/17 04:25 Albumin/Globulin Ratio 0.6 (1.1-2.2) L 03/19/17 04:25 Urine Clarity Turbid (Clear) A 03/19/17 10:45 Urine Protein 30 mg/dL (Neg-Trace) H 03/19/17 10:45 Urine Blood Large (Negative) H 03/19/17 10:45 Ur Leukocyte Esterase Large (Negative) H 03/19/17 10:45 Urine Microscopic RBC 15-30 per hpf (0-3) H 03/19/17 10:45 Urine Microscopic WBC TNTC per hpf (0-3) H 03/19/17 10:45 Ur Squamous Epith Cells Many per lpf (None-Few) H 03/19/17 10:45 Urine Yeast Many per hpf (None Seen) H 03/19/17 10:45 Ur Culture Indicated? YES (NO) A 03/19/17 10:45 - Microbiology Findings Microbiology Findings: Microbiology, Last 48 Hours 03/18/17 22:58 Blood Culture - Preliminary Peripheral Venipuncture No growth. 03/18/17 22:58 Blood Culture - Preliminary Peripheral Venipuncture No growth. - Clinical Findings Intake & Output: Intake & Output 03/19/17 03/19/17 03/20/17 15:59 23:59 07:59 Intake Total 1438 / 1438 220 / 220 100 / 100 Output Total 375 / 375 300 / 300 450 / 450 Balance 1063 / 1063 -80 / -80 -350 / -350 Weight 88.496 kg Consult Discharge Plan - Plan Referrals: NO,PCP [Primary Care Provider] - <Fady Clarke - Last Filed: 03/20/17 10:33> Date of Encounter: 03/20/17 Objective PUL Vital signs: Last Vital Signs Temp 97.6 F 03/20/17 07:24 Pulse 105 03/20/17 08:00 Resp 22 03/20/17 08:00 BP 141/73 03/20/17 08:00 Pulse Ox 94 03/20/17 08:00 Results - Laboratory Findings CBC and BMP: 03/20/17 04:23 03/20/17 04:23 PT/INR, D-dimer PT 15.1 Seconds (9.4-12.1) H 03/20/17 04:23 Abnormal lab findings: Abnormal lab results WBC 13.1 K/mcL (4.3-11.1) H 03/20/17 04:23 RBC 2.59 M/mcL (3.82-4.97) L 03/20/17 04:23 Hgb 7.7 g/dL (11.5-15.4) L 03/20/17 04:23 Hct 24.2 % (35.3-44.9) L 03/20/17 04:23 RDW 19.7 % (11.5-14.5) H 03/20/17 04:23 Neutrophils # 9.7 K/mcL (1.6-8.9) H 03/20/17 04:23 Nucleated RBCs/100 WBC 0.2 /100 WBC (0) H 03/20/17 00:50 ESR 57 mm/hr (0-15) H 03/19/17 16:16 PT 15.1 Seconds (9.4-12.1) H 03/20/17 04:23 BUN 108 mg/dL (7-20) H 03/20/17 04:23 Creatinine 3.88 mg/dL (0.57-1.11) H 03/20/17 04:23 Est GFR ( Amer) 14 (> 60) L 03/20/17 04:23 Est GFR (Non-Af Amer) 12 (> 60) L 03/20/17 04:23 BUN/Creatinine Ratio 28 (6-26) H 03/20/17 04:23 POC Glucose 109 (58-89) H 03/20/17 04:21 Calculated Osmolality 318 (280-300) H 03/20/17 04:23 Calcium 8.5 mg/dL (8.6-10.8) L 03/20/17 04:23 Ionized Calcium 1.11 mmol/L (1.15-1.35) L 03/20/17 04:23 Phosphorus 6.6 mg/dL (2.3-4.7) H 03/20/17 04:23 Total Bilirubin 2.1 mg/dL (0.2-1.2) H D 03/19/17 04:25 Direct Bilirubin 1.3 mg/dL (0.0-0.5) H 03/19/17 04:25 AST 97 Units/L (5-34) H 03/19/17 04:25 Albumin 2.5 g/dL (3.5-5.0) L D 03/19/17 04:25 Globulin 4.4 g/dL (2.4-3.5) H 03/19/17 04:25 Albumin/Globulin Ratio 0.6 (1.1-2.2) L 03/19/17 04:25 Urine Clarity Turbid (Clear) A 03/19/17 10:45 Urine Protein 30 mg/dL (Neg-Trace) H 03/19/17 10:45 Urine Blood Large (Negative) H 03/19/17 10:45 Ur Leukocyte Esterase Large (Negative) H 03/19/17 10:45 Urine Microscopic RBC 15-30 per hpf (0-3) H 03/19/17 10:45 Urine Microscopic WBC TNTC per hpf (0-3) H 03/19/17 10:45 Ur Squamous Epith Cells Many per lpf (None-Few) H 03/19/17 10:45 Urine Yeast Many per hpf (None Seen) H 03/19/17 10:45 Ur Culture Indicated? YES (NO) A 03/19/17 10:45 - Microbiology Findings Microbiology Findings: Microbiology, Last 48 Hours 03/18/17 22:58 Blood Culture - Preliminary Peripheral Venipuncture No growth. 03/18/17 22:58 Blood Culture - Preliminary Peripheral Venipuncture No growth. - Clinical Findings Intake & Output: Intake & Output 03/19/17 03/20/17 03/20/17 23:59 07:59 15:59 Intake Total 220 / 220 200 / 200 Output Total 300 / 300 625 / 625 Balance -80 / -80 -425 / -425 Weight 88.496 kg - Attending Attestation I examined this patient and my medical decision-making was reviewed with the WILDLIFE CONSERVATIONIST/PA/Advanced Practice Nurse/Resident Physician. I agree with the documented findings, disposition and treatment plan as described except to the extent set forth below. Patient seen and examined at bedside Labs, radiology, chart personally reviewed. All lines examined without evidence of infection. Neuropsych: Awake and alert. focus on sleep wake cycle maint. Pulm: Chronic O2 need at home but no significant O2 need at present. goal sats > 88% Cards: Hemorrhagic Shock Resolved. Lactate has normalized MAP goal >60. after fluid resuscitation. FEN-GI: Liquid diet today. history of PUD with suspected UGI hemorrhage which is stable. cont PPI gtt. Endoscopy service following. Renal:: JULIET on CKD nephrology consulted no indication for ACID BATH MIXER at present. mild hyperkalemia has resolved. ID: Coverage for Gi hemorrhage bu tno history of varices. D/c and monitor.. Heme/Onc:. Super therapeutic INR s/t to warfarin INR coagulopathy icorrected- Acute blood loss anemia stable over 24ours. >7.0. SCDs for DVT Endo: glucose monitored Integ/MSK: Skin care per ICU protocol. CODE: Full stable for transfer to med/tele for ongoing care.
[2017-03-20] MEDS ORDERED: Calcium Gluconate 1,000 MG in D5% in Water 100 ML IVPB ONE (06:47)
--- NOTE | 2017-03-20 08:20 | Internal Med Progress Note ---
Date of Encounter: 03/20/17 Time of Encounter: 08:18 - Assessment and plan (1) Gastric ulcer Current Visit: Yes Status: Acute Qualifiers: Qualified Code(s): K25.0 - Acute gastric ulcer with hemorrhage (2) UGI bleed Current Visit: No Status: Acute Assessment and plan: No further bleeding at this time.. HGB will need to be watched. The ICU Resident will provide IV Iron. 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 Current Visit: Yes Status: Resolved (7) Protein calorie malnutrition Current Visit: Yes Status: Chronic (8) Diabetes mellitus Current Visit: Yes Status: Acute Qualifiers: Diabetes mellitus type: type 2 Diabetes mellitus complication status: with kidney complications Diabetes mellitus complication detail: with chronic kidney disease Qualified Code(s): E11.22 - Type 2 diabetes mellitus with diabetic chronic kidney disease; N18.4 - Chronic kidney disease, stage 4 (severe ); Z79.4 - exterminator termite (current) use of insulin (9) Paroxysmal a-fib Current Visit: Yes Status: Chronic - Subjective Interval history: She admits feeling well.. no further bleeding. HGB has been stable over past 24 hrs. I again recommended EGD, she has refused. She is aware of risk of bleeding, stroke and . I reiterated no Coumadin or ASA for 2 months. - Constitutional Vitals: Temp Pulse Resp BP Pulse Ox 97.6 F 88 20 146/73 94 03/20/17 07:24 03/20/17 06:00 03/20/17 06:00 03/20/17 06:00 03/20/17 06:00 General appearance: Present: cooperative, A&O X 3, pleasant, no acute distress, obese - Neck Neck exam general surgery: Present: normal inspection, trachea midline - Respiratory Respiratory exam: Present: decreased breath sounds. Absent: tachypnea - Cardiovascular Cardiovascular exam: Present: distant heart sounds, RRR. Absent: JVD - GI/Abdominal GI/Abdominal exam: Present: normal bowel sounds, soft, no peritoneal signs. Absent: rebound, rigid, tenderness Internal Medicine: Result - Labs CBC & Chem 7: 03/20/17 04:23 03/20/17 04:23 Labs: Short CBC 03/19/17 03/19/17 03/20/17 Range/Units 10:45 16:16 00:50 WBC 13.6 H 13.4 H 13.1 H (4.3-11.1) K/mcL Hgb 8.1 L 7.8 L 7.9 L (11.5-15.4) g/dL Hct 24.4 L 24.2 L 24.7 L (35.3-44.9) % Plt Count 209 213 216 (140-400) K/mcL Neutrophils # 10.1 H 10.2 H 9.9 H (1.6-8.9) K/mcL 03/20/17 Range/Units 04:23 WBC 13.1 H (4.3-11.1) K/mcL Hgb 7.7 L (11.5-15.4) g/dL Hct 24.2 L (35.3-44.9) % Plt Count 208 (140-400) K/mcL Neutrophils # 9.7 H (1.6-8.9) K/mcL BMP 03/19/17 03/20/17 10:45 04:23 Sodium 136 137 Potassium 4.5 4.2 Chloride 98 101 Carbon Dioxide 22 26 BUN 110 H 108 H Creatinine 3.82 H 3.88 H Glucose 193 H 99 Calcium 8.8 8.5 L Urine 03/19/17 Range/Units 10:45 Urine Color Yellow (Yellow) Urine Clarity Turbid A (Clear) Urine pH 5.5 (5.0-8.0) pH Units Ur Specific Pierre 1.014 (1.010-1.025) Urine Protein 30 H (Neg-Trace) mg/dL Urine Glucose (UA) Normal (Normal) mg/dL - ABG Interpretation ABG results: PT/INR, D-dimer PT 15.1 Seconds (9.4-12.1) H 03/20/17 04:23 Consult Discharge Plan - Plan Referrals: NO,PCP [Primary Care Provider] -
--- NOTE | 2017-03-20 08:26 | Nephrology Progress Note ---
Date of Encounter: 03/20/17 Time of Encounter: 08:15 - Assessment and Plan (1) Acute kidney injury superimposed on CKD Current Visit: No Status: Chronic JULIET superimposed on stage IV CKD in the setting of upper GI bleeding. Patient baseline 2.8, GFR 20. Today's Creat 3.88. Urine output 1175cc. Hgb stable 7.7. No indication for dialysis, will continue to monitor. Subjective Principal diagnosis: hemorrhagic shock Interval history: Sitting up in bed, states feeling better, wants to eat. Objective - Vital Signs Vital signs: Vital Signs Temp Pulse Resp BP Pulse Ox 03/20/17 07:24 97.6 F 03/20/17 06:00 88 20 146/73 94 03/20/17 05:00 84 16 142/72 94 03/20/17 04:40 97.6 F 03/20/17 04:00 89 16 133/67 95 03/20/17 03:00 78 14 134/74 95 03/20/17 02:00 91 13 118/63 93 03/20/17 01:00 83 16 114/53 95 03/20/17 00:32 97.7 F 03/20/17 00:00 91 03/19/17 23:00 91 18 145/81 94 03/19/17 22:00 85 12 152/78 94 03/19/17 21:00 80 13 140/80 95 03/19/17 20:00 97.5 F L 84 16 140/76 93 03/19/17 19:00 92 20 139/82 91 03/19/17 18:00 96 20 138/66 91 03/19/17 17:00 85 20 134/72 93 03/19/17 16:00 97.6 F 87 20 138/78 03/19/17 15:21 97.6 F 81 20 136/73 94 03/19/17 15:00 82 20 136/73 94 03/19/17 14:35 97.6 F 84 20 130/89 03/19/17 14:20 97.9 F 85 20 119/65 03/19/17 14:00 77 20 119/65 96 03/19/17 13:18 97.9 F 83 20 135/74 03/19/17 13:00 83 20 135/74 95 03/19/17 12:39 97.9 F 82 22 148/73 03/19/17 12:27 97.6 F 03/19/17 12:24 97.6 F 85 20 141/74 03/19/17 12:00 83 03/19/17 11:00 97.6 F 78 18 129/71 97 03/19/17 10:00 81 18 136/73 97 03/19/17 09:00 81 18 131/73 97 Intake and Output 03/19/17 03/20/17 03/20/17 23:59 07:59 15:59 Intake Total 220 / 220 200 / 200 Output Total 300 / 300 625 / 625 Balance -80 / -80 -425 / -425 Intake: IV Fluids 100 / 100 200 / 200 Protonix 40 MG In 0.9 % 100 / 100 200 / 200 Sodium Chloride (Mini-Bag +) 100 ML @ 20 mls/hr IVC .Q5H [facility] Rx#: [id number] Oral 120 / 120 Output: Catheter 300 / 300 625 / 625 Other: Weight 88.496 kg Blood Glucose* 109 Patient Weight 03/20/17 23:59 Weight 88.496 kg - General Appearance General appearance: Present: well-developed, well-nourished, appears started age EENT: Present: mucous membranes moist Neck: Present: no JVD Additional Comments: fine bibasilar crackles Cardiology: Present: edema, regular rate, regular rhythm Additional Comments: mild pitting edema Gastrointestinal: Present: hypoactive bowel sounds, no tenderness Integumentary: Present: warm and dry Neurologic: Present: alert and oriented x3 Psychiatric: Present: mood/affect appropriate, cooperative - Lab 03/20/17 04:23 03/20/17 04:23 Most recent lab results Calcium 8.5 mg/dL (8.6-10.8) L 03/20/17 04:23 Phosphorus 6.6 mg/dL (2.3-4.7) H 03/20/17 04:23 Magnesium 2.0 mg/dL (1.6-2.6) 03/20/17 04:23 Consult Discharge Plan - Plan Referrals: NO,PCP [Primary Care Provider] -
[2017-03-20] MEDS ORDERED: Ferumoxytol 510 MG in 0.9 % Sodium Chloride 100 ML IVPB ONE (08:31)
[2017-03-20] MEDS ORDERED: Ondansetron 4 MG/2 ML VIAL IVP PRN (12:25)
[2017-03-20] MEDS ORDERED: *HR* Promethazine 25 MG/ML VIAL IVP PRN (12:25)
[2017-03-20] MEDS ORDERED: Dextrose Gel 15 GM PO PRN ×2 (12:25)
[2017-03-20] MEDS ORDERED: *HR* Dextrose 50 % in Water (Syg) 50 ML SYRINGE IVP PRN (12:25)
[2017-03-20] MEDS ORDERED: D5% in Water 1,000 ML IVC PRN (12:25)
[2017-03-20] MEDS ORDERED: Insulin LISPRO 300 UNITS/3 ML VIAL SQ ONE (12:43)
[2017-03-20 13:35] LABS: Protein/Creatinine Ratio,Urine 0.46 mg/mg (0-0.20)
[2017-03-21] MEDS ORDERED: Acetaminophen 325 MG TABLET PO PRN (03:13)
[2017-03-21] MEDS: Pantoprazole 40 MG in 0.9 % Sodium Chloride Mini Bag 100 ML IVC SCH ×3 (04:46→16:04)
[2017-03-21 05:01] LABS: INR 1.2; Prothrombin Time 13.2 Seconds (9.4-12.1)
[2017-03-21] MEDS: Insulin LISPRO 300 UNITS/3 ML VIAL SQ SCH ×4 (06:10→18:05)
[2017-03-21 07:16] LABS: Basophils % 0.2 %; Eosinophils # 0.3 K/mcL (0.0-0.6); Eosinophils % 2.1 %; Hematocrit 25.6 % (35.3-44.9); Immature Granulocytes % 0.5 % (0-4); Lymphocytes # 1.7 K/mcL (0.6-4.6); Lymphocytes % 13.3 %; Mean Corpuscular HGB Conc 31.3 g/dL (31.6-35.5); Mean Corpuscular Hemoglobin 30.2 pg (28.0-33.3); Mean Corpuscular Volume 96.6 fL (83.0-100.0); Monocytes # 1.6 K/mcL (0.0-1.3); Neutrophils # 9.3 K/mcL (1.6-8.9); Platelet Count 208 K/mcL (140-400); Red Blood Count 2.65 M/mcL (3.82-4.97); Red Cell Distribution Width 18.7 % (11.5-14.5); Segmented Neutrophils % 71.9 %
--- NOTE | 2017-03-21 09:56 | Nephrology Progress Note ---
Date of Encounter: 03/21/17 Time of Encounter: 09:45 - Assessment and Plan (1) Acute kidney injury superimposed on CKD Current Visit: No Status: Chronic JULIET superimposed on stage IV CKD in the setting of upper GI bleeding. Patient baseline 2.8, GFR 20. Today's labs pending. No documented urine output. Hgb stable 8.0. Will continue to monitor. Subjective Principal diagnosis: hemorrhagic shock Interval history: Sitting up in bed, states feeling better. Objective - Vital Signs Vital signs: Vital Signs Temp Pulse Resp BP Pulse Ox 03/21/17 07:26 98.0 F 93 18 134/81 93 03/21/17 04:39 97.8 F 100 16 120/66 94 03/20/17 23:25 97.9 F 98 18 131/73 94 03/20/17 19:03 98.1 F 105 20 139/77 94 03/20/17 15:57 97.7 F 97 135/77 93 03/20/17 10:00 97 20 153/79 97 Intake and Output 03/20/17 03/21/17 03/21/17 23:59 07:59 15:59 Intake Total 200 / 200 160 / 160 0 / 0 Output Total 850 / 850 0 / 0 Balance 200 / 200 -690 / -690 0 / 0 Intake: IV Fluids 200 / 200 100 / 100 Protonix 40 MG In 0.9 % 200 / 200 100 / 100 Sodium Chloride (Mini-Bag +) 100 ML @ 20 mls/hr IVC .Q5H [facility] Rx#: [id number] Oral 0 / 0 60 / 60 0 / 0 Output: Urine 0 / 0 Catheter 850 / 850 Other: Weight 89.5 kg Blood Glucose* 357 123 Patient Weight 03/21/17 23:59 Weight 89.5 kg - General Appearance General appearance: Present: well-developed, well-nourished, appears started age EENT: Present: mucous membranes moist Neck: Present: no JVD Respiratory: Present: clear Cardiology: Present: edema, regular rate, regular rhythm Additional Comments: Heavy legs, moderate -1+ pitting edema LE Gastrointestinal: Present: normoactive bowel sounds, no tenderness Integumentary: Present: warm and dry Neurologic: Present: alert and oriented x3 Psychiatric: Present: mood/affect appropriate, cooperative - Lab 03/21/17 03:40 03/20/17 04:23 Most recent lab results Calcium 8.5 mg/dL (8.6-10.8) L 03/20/17 04:23 Phosphorus 6.6 mg/dL (2.3-4.7) H 03/20/17 04:23 Magnesium 2.0 mg/dL (1.6-2.6) 03/20/17 04:23 Urine Creatinine 52 mg/dL 03/20/17 12:22 Urine Total Protein 24 mg/dL (1-14) H 03/20/17 12:22 - VTE Documentation of Mechanical Device: Intermittent pneumatic compression device Consult Discharge Plan - Plan Referrals: NO,PCP [Primary Care Provider] -
[2017-03-21 10:12] LABS: Calcium 7.8 mg/dL (8.6-10.8); Ionized Calcium 1.06 mmol/L (1.15-1.35); Magnesium 1.9 mg/dL (1.6-2.6); Phosphorous 5.4 mg/dL (2.3-4.7); Potassium 4.2 mEq/L (3.5-4.5)
--- NOTE | 2017-03-21 13:52 | Internal Med Progress Note ---
Date of Encounter: 03/21/17 Time of Encounter: 13:50 - Assessment and plan (1) UGI bleed Current Visit: No Status: Acute Assessment and plan: No further bleeding at this time.. HGB will need to be watched. Refused EGD at this time. She had recently had EEG done on 02/11/17 which showed nonbleeding gastric ulcers with no stigmata of bleeding. biopsies showed erosion, negative for gastritis or H.Pylori in routine sections. Normal duodenum. s/p transfusion of 4 units prbc, 4 units FFP, 10mg vitamin K will stop the PPI drip and change to q12 coumadin has been held, continue IV iron. monitor h/h. (2) Acute kidney injury superimposed on CKD Current Visit: No Status: Chronic Assessment and plan: renal following, gradually improving. they do not recommend HD at this time (3) Hypertension, uncontrolled Current Visit: No Status: Acute Assessment and plan: hold Losartan, furosemide for hemorrhagic shock. blood pressures well controlled at this time. (4) Atrial fibrillation Current Visit: Yes Status: Acute Assessment and plan: Patient has hx of Afib, was on warfarin prior, but this was discontinued last week by her doctor due to multiple issues with bruising. continue to hold warfarin at this time. Qualifiers: Atrial fibrillation type: paroxysmal Qualified Code(s): I48.0 - Paroxysmal atrial fibrillation (5) Type 2 diabetes mellitus Current Visit: Yes Status: Acute Qualifiers: Diabetes mellitus complication status: without complication Diabetes mellitus [facility] insulin use: without terminal computer operator use Qualified Code(s): E11.9 - Type 2 diabetes mellitus without complications (6) Peptic ulcer disease Current Visit: Yes Status: Acute - Subjective Interval history: Patient was seen at the bedside, admitted for upper GI bleed. Transferred from ICU last night. Denies any bowel movements this morning, no nausea or vomiting, no abdominal pain. Refuses EGD, reports she had it before when they found out ulcers.. Hemoglobin today stable. - Constitutional Vitals: Temp Pulse Resp BP Pulse Ox 97.6 F 77 18 111/65 97 03/21/17 11:40 03/21/17 11:40 03/21/17 11:40 03/21/17 11:40 03/21/17 11:40 General appearance: Present: cooperative, A&O X 3, pleasant, no acute distress, obese Exam: Eyes: nonicteric ENT: oropharynx moist Neck: supple, no lymphadenopathy, JVD Effort: normal Auscultation: bilateral: clear, no added sounds Cardiovascular: regular rate and rhythm Gastrointestinal: soft, non tender , bs are present Integumentary: normal Extremities: no cyanosis, edema (+2 bilateral lower extremity edema. ), other ( bilateral wounds present on top part of feet. ) normal mental status mood appropriate Internal Medicine: Result - Labs CBC & Chem 7: 03/21/17 03:40 03/21/17 09:33 Labs: Short CBC 03/21/17 Range/Units 03:40 WBC 12.9 H (4.3-11.1) K/mcL Hgb 8.0 L (11.5-15.4) g/dL Hct 25.6 L (35.3-44.9) % Plt Count 208 (140-400) K/mcL Neutrophils # 9.3 H (1.6-8.9) K/mcL BMP 03/21/17 09:33 Sodium 136 Potassium 4.2 Chloride 101 Carbon Dioxide 24 BUN 89 H Creatinine 3.49 H Glucose 208 H Calcium 7.8 L - ABG Interpretation ABG results: PT/INR, D-dimer PT 13.2 Seconds (9.4-12.1) H 03/21/17 03:40 - VTE Documentation of Mechanical Device: Intermittent pneumatic compression device Consult Discharge Plan - Plan Referrals: Beth Ewing CNP [Partnered Physician] - 03/26/17 10:00 am (PLEASE FOLLOW UP WITH YOUR NEW PCP AT [facility]. YOU WILL RECIEVE A NEW PATIENT PACKET IN THE MAIL. PLEASE FILL OUT AND TAKE WITH YOU TO YOUR APPOINTMENT ALONG WITH YOUR INSURANCE CARD AND PHOTO ID AND A LIST OF ANY MEDICATIONS YOU ARE CURRENTLY TAKING. IF YOU HAVE ANY QUESTIONS PLEASE FEEL FREE TO CALL)
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
[2017-03-21] MEDS: Pantoprazole 40 MG VIAL IVP SCH (18:05)
[2017-03-22] MEDS: Pantoprazole 40 MG VIAL IVP SCH (06:27)
[2017-03-22] MEDS: Insulin LISPRO 300 UNITS/3 ML VIAL SQ SCH ×4 (06:28→17:14)
[2017-03-22] MEDS ORDERED: Calcium Gluconate 2,000 MG in D5% in Water 100 ML IVPB ONE (09:01)
--- NOTE | 2017-03-22 09:41 | Nephrology Progress Note ---
Date of Encounter: 03/22/17 Time of Encounter: 09:15 - Assessment and Plan (1) Acute kidney injury superimposed on CKD Current Visit: No Status: Chronic JULIET superimposed on stage IV CKD in the setting of upper GI bleeding. Patient baseline 2.8, GFR 20. Today's labs pending, creat slow trend downward yesterday. Documented urine output 850cc. Will continue to monitor. Subjective Principal diagnosis: hemorrhagic shock Interval history: Sitting up in bed, states feeling better. Denies further loose stools Objective - Vital Signs Vital signs: Vital Signs Temp Pulse Resp BP Pulse Ox 03/22/17 08:09 97.8 F 90 18 128/75 98 03/22/17 04:55 98.5 F 90 16 125/86 93 03/22/17 00:12 98.5 F 87 18 127/77 03/21/17 20:38 98.4 F 84 16 121/72 95 03/21/17 16:45 97.8 F 76 18 127/71 96 03/21/17 11:40 97.6 F 77 18 111/65 97 Intake and Output 03/21/17 03/22/17 03/22/17 23:59 07:59 15:59 Intake Total 300 / 300 0 / 0 Output Total 0 / 0 850 / 850 Balance 300 / 300 -850 / -850 Intake: Oral 300 / 300 0 / 0 Output: Urine 0 / 0 Catheter 850 / 850 Other: Weight 90.3 kg Blood Glucose* 264 Patient Weight 03/22/17 23:59 Weight 90.3 kg - General Appearance General appearance: Present: well-developed, well-nourished, appears started age , obese EENT: Present: mucous membranes moist Neck: Present: no JVD Respiratory: Present: clear Cardiology: Present: edema, regular rate, regular rhythm Additional Comments: moderate pitting edema LE Gastrointestinal: Present: normoactive bowel sounds, no tenderness Integumentary: Present: warm and dry Neurologic: Present: alert and oriented x3 Psychiatric: Present: mood/affect appropriate, cooperative - Lab 03/21/17 03:40 03/21/17 09:33 Most recent lab results Calcium 7.8 mg/dL (8.6-10.8) L 03/21/17 09:33 Phosphorus 5.4 mg/dL (2.3-4.7) H 03/21/17 09:33 Magnesium 1.9 mg/dL (1.6-2.6) 03/21/17 09:33 Urine Creatinine 52 mg/dL 03/20/17 12:22 Urine Total Protein 24 mg/dL (1-14) H 03/20/17 12:22 - VTE Documentation of Mechanical Device: Intermittent pneumatic compression device Consult Discharge Plan - Plan Referrals: Beth Ewing CNP [Partnered Physician] - 03/26/17 10:00 am (PLEASE FOLLOW UP WITH YOUR NEW PCP AT [facility]. YOU WILL RECIEVE A NEW PATIENT PACKET IN THE MAIL. PLEASE FILL OUT AND TAKE WITH YOU TO YOUR APPOINTMENT ALONG WITH YOUR INSURANCE CARD AND PHOTO ID AND A LIST OF ANY MEDICATIONS YOU ARE CURRENTLY TAKING. IF YOU HAVE ANY QUESTIONS PLEASE FEEL FREE TO CALL)
[2017-03-22 10:07] LABS: Potassium 4.7 mEq/L (3.5-4.5)
--- NOTE | 2017-03-22 13:05 | Podiatry Progress Note ---
Date of Encounter: 03/22/17 Time of Encounter: 10:30 - Assessment and Plan (1) Ulcers of both lower extremities Current Visit: Yes Status: Acute Dressings changed at bedside Appear unchanged Continue wet to dry dressings with santyl and keep BLE elevated Home health care for dressing changes Continue antibiotic coverage while inpatient Call with any changes or concerns. Monitor for any worsening or clinical signs of infection (2) Type 2 diabetes mellitus Current Visit: Yes Status: Acute Qualifiers: Diabetes mellitus complication status: without complication Diabetes mellitus half-way insulin use: without terminal manager use Qualified Code(s): E11.9 - Type 2 diabetes mellitus without complications (3) Peptic ulcer disease Current Visit: Yes Status: Acute (4) CKD (chronic kidney disease) Current Visit: Yes Status: Acute Qualifiers: Chronic kidney disease stage: stage 4 (severe) Qualified Code(s): N18.4 - Chronic kidney disease, stage 4 (severe) Subjective Principal diagnosis: hemorrhagic shock Interval history: Patient was seen and evaluated yesterday for BLE ulcerations to dorsal aspects of feet. Orders were placed for dressing changes and bilateral SENTHIL's. SENTHIL prelim note 03/21/17 21:42 - Vascular Preliminary by Demetria Andrea Acct Num: [id number] : 1955 Patient Age: 62 Bilateral lower extremity arterial physiologic SENTHIL exam completed. Within normal limits bilaterally. Appears within normal limits Dressings intact on arrival, patient resting comfortably Patient denies pain, fevers, chills, n/v or flu like symptoms at this time Patient denies any calf pain Objective - Vital Signs Vital Signs: Vital Signs Temp Pulse Resp BP Pulse Ox 03/22/17 08:09 97.8 F 90 18 128/75 98 03/22/17 04:55 98.5 F 90 16 125/86 93 03/22/17 00:12 98.5 F 87 18 127/77 03/21/17 20:38 98.4 F 84 16 121/72 95 03/21/17 16:45 97.8 F 76 18 127/71 96 Intake and Output 03/21/17 03/22/17 03/22/17 23:59 07:59 15:59 Intake Total 300 / 300 0 / 0 0 / 0 Output Total 0 / 0 850 / 850 0 / 0 Balance 300 / 300 -850 / -850 0 / 0 Intake: Oral 300 / 300 0 / 0 0 / 0 Output: Urine 0 / 0 0 / 0 Catheter 850 / 850 Other: Weight 90.3 kg Blood Glucose* 264 Patient Weight 03/22/17 23:59 Weight 90.3 kg - Exam Exam: General Examination: CONSTITUTIONAL: Alert, oriented, in no acute distress, non-toxic. EXTREMITIES: CFT 3 seconds all toes. Edema +2 and pedal pulses remain non palpable due to edema and presence of ulcerations SKIN: Skin with decreased turgor, decreased subcutaneous tissue, skin thin and shiny with trophic changes associated with comorbidities as described in history.. NEUROLOGIC: Intact sensation to light touch Ulcerations stable- No changes since 03/21 assessment Santyl placed to ulcers last night as ordered No additional eschar tissue or clinical signs of infection noted. Mild periulcer erythema, does not extend more than 0.3cm surrounding wound. right appears better than left as previously noted - Lab Result Diagrams: 03/21/17 03:40 03/22/17 09:43 Labs: Abnormal lab results WBC 12.9 K/mcL (4.3-11.1) H 03/21/17 03:40 RBC 2.65 M/mcL (3.82-4.97) L 03/21/17 03:40 Hgb 8.0 g/dL (11.5-15.4) L 03/21/17 03:40 Hct 25.6 % (35.3-44.9) L 03/21/17 03:40 MCHC 31.3 g/dL (31.6-35.5) L 03/21/17 03:40 RDW 18.7 % (11.5-14.5) H 03/21/17 03:40 Neutrophils # 9.3 K/mcL (1.6-8.9) H 03/21/17 03:40 Monocytes # 1.6 K/mcL (0.0-1.3) H 03/21/17 03:40 Nucleated RBCs/100 WBC 0.2 /100 WBC (0) H 03/20/17 00:50 ESR 57 mm/hr (0-15) H 03/19/17 16:16 PT 13.2 Seconds (9.4-12.1) H 03/21/17 03:40 Potassium 4.7 mEq/L (3.5-4.5) H 03/22/17 09:43 BUN 79 mg/dL (7-20) H 03/22/17 09:43 Creatinine 3.22 mg/dL (0.57-1.11) H 03/22/17 09:43 Est GFR ( Amer) 18 (> 60) L 03/22/17 09:43 Est GFR (Non-Af Amer) 14 (> 60) L 03/22/17 09:43 Glucose 172 mg/dL (70-99) H 03/22/17 09:43 POC Glucose 264 (58-89) H 03/21/17 20:36 Calculated Osmolality 314 (280-300) H 03/22/17 09:43 Calcium 8.0 mg/dL (8.6-10.8) L 03/22/17 09:43 Ionized Calcium 1.06 mmol/L (1.15-1.35) L 03/21/17 09:33 Phosphorus 5.4 mg/dL (2.3-4.7) H 03/21/17 09:33 Total Bilirubin 2.1 mg/dL (0.2-1.2) H D 03/19/17 04:25 Direct Bilirubin 1.3 mg/dL (0.0-0.5) H 03/19/17 04:25 AST 97 Units/L (5-34) H 03/19/17 04:25 Albumin 2.5 g/dL (3.5-5.0) L D 03/19/17 04:25 Globulin 4.4 g/dL (2.4-3.5) H 03/19/17 04:25 Albumin/Globulin Ratio 0.6 (1.1-2.2) L 03/19/17 04:25 Urine Clarity Turbid (Clear) A 03/19/17 10:45 Urine Protein 30 mg/dL (Neg-Trace) H 03/19/17 10:45 Urine Blood Large (Negative) H 03/19/17 10:45 Ur Leukocyte Esterase Large (Negative) H 03/19/17 10:45 Urine Microscopic RBC 15-30 per hpf (0-3) H 03/19/17 10:45 Urine Microscopic WBC TNTC per hpf (0-3) H 03/19/17 10:45 Ur Squamous Epith Cells Many per lpf (None-Few) H 03/19/17 10:45 Urine Yeast Many per hpf (None Seen) H 03/19/17 10:45 Ur Culture Indicated? YES (NO) A 03/19/17 10:45 Protein/Creatinin Ratio 0.46 mg/mg (0-0.20) H 03/20/17 12:22 Urine Total Protein 24 mg/dL (1-14) H 03/20/17 12:22 Microbiology, Last 48 Hours 03/19/17 10:45 Urine Culture - Final Urine,Clean Catch No growth. - VTE Documentation of Mechanical Device: Intermittent pneumatic compression device Consult Discharge Plan - Plan Referrals: Beth Ewing CNP [Partnered Physician] - 03/26/17 10:00 am (PLEASE FOLLOW UP WITH YOUR NEW PCP AT [facility]. YOU WILL RECIEVE A NEW PATIENT PACKET IN THE MAIL. PLEASE FILL OUT AND TAKE WITH YOU TO YOUR APPOINTMENT ALONG WITH YOUR INSURANCE CARD AND PHOTO ID AND A LIST OF ANY MEDICATIONS YOU ARE CURRENTLY TAKING. IF YOU HAVE ANY QUESTIONS PLEASE FEEL FREE TO CALL)
--- NOTE | 2017-03-22 14:33 | Arterial Study Report ---
LE Arterial Physiologic Study Patient Name:Shahida Calvillo Order Number:[id number] Procedure Date:03/21/2017 Date:1955ge:62 yrs Gender:Female Rt.BP:118 / mmHgHeart Rate: Location:[facility] Room #: 2A36 Academic Affairs Assistant:Demetria Andrea Referring MD:Vonnie Flores CNP executive pastry chef:None Reading MD:Kev Fowler MD Primary Indications:Ischemic ulcerations to BLE Risk Factors Yes/No Smoker Previous Hypertension Hypercholesterolemia Diabetes Hx of CAD/PTCA Impressions: The bilateral lower extremities are hemodynamically well maintained. The right SENTHIL and waveforms are normal. Right SENTHIL 1.17. The left SENTHIL and waveforms are normal. Left SENTHIL: 1.40. Findings LE Arterial Physiologic Exam: PVR: Right: The PVR waveforms are normal in the right ankle. Left: The PVR waveforms are normal in the left ankle. Prior Study: No prior study available for comparison. Segmental Pressures Side Location Pressure Index Result Right Posterior Tibial 131 1.11 Normal Right Dorsalis Pedis 138 1.17 Normal Left Posterior Tibial 149 1.26 Normal Left Dorsalis Pedis 165 1.40 Normal Ankle Brachial Index Right Systolic Diastolic SENTHIL Brachial 118 1.17 Dorsalis Pedis 138 1.17 Posterior Tibial 131 1.11 Left Systolic Diastolic SENTHIL Brachial 1.40 Dorsalis Pedis 165 1.40 Posterior Tibial 149 1.26 Updated by Kev Fowler MD on 03/22/2017 2:30:07 PM with Status of Final electronically signed on 03/22/2017 2:30:39 PM with status of Final
--- NOTE | 2017-03-22 16:07 | Internal Med Progress Note ---
Date of Encounter: 03/22/17 Time of Encounter: 14:00 - Assessment and plan (1) UGI bleed Current Visit: No Status: Acute Assessment and plan: No further bleeding at this time.. HGB table, will recheck tomorrow in am. Refused EGD at this time. She had recently had EEG done on 02/11/17 which showed nonbleeding gastric ulcers with no stigmata of bleeding. biopsies showed erosion, negative for gastritis or H.Pylori in routine sections. Normal duodenum. s/p transfusion of 4 units prbc, 4 units FFP, 10mg vitamin K will stop the iv PPI and change to PO. coumadin has been held, continue IV iron. monitor h/h. (2) Acute kidney injury superimposed on CKD Current Visit: No Status: Chronic Assessment and plan: renal following, gradually improving. they do not recommend HD at this time (3) Hypertension, uncontrolled Current Visit: No Status: Acute Assessment and plan: hold Losartan, furosemide for hemorrhagic shock. blood pressures well controlled at this time. (4) Atrial fibrillation Current Visit: Yes Status: Acute Assessment and plan: Patient has hx of Afib, was on warfarin prior, but this was discontinued last week by her doctor due to multiple issues with bruising. continue to hold warfarin at this time. Qualifiers: Atrial fibrillation type: paroxysmal Qualified Code(s): I48.0 - Paroxysmal atrial fibrillation (5) Type 2 diabetes mellitus Current Visit: Yes Status: Acute Qualifiers: Diabetes mellitus complication status: without complication Diabetes mellitus nursing home insulin use: without nursing home use Qualified Code(s): E11.9 - Type 2 diabetes mellitus without complications (6) Peptic ulcer disease Current Visit: Yes Status: Acute - Subjective Interval history: 1st encounter with the patient. seen and examined during rounds. denies sob, chest pain. tolerates diet. - Constitutional Vitals: Temp Pulse Resp BP Pulse Ox 98.0 F 77 18 111/68 97 03/22/17 15:02 03/22/17 15:02 03/22/17 15:02 03/22/17 15:02 03/22/17 15:02 General appearance: Present: cooperative, A&O X 3, pleasant, no acute distress, obese - Head Head exam: Present: atraumatic, normocephalic - Eye Eye exam: Present: PERRL, conjuntiva pink, sclera anicteric Pupils: Present: PERRL - Neck Neck exam general surgery: Present: supple, trachea midline. Absent: lymphadenopathy - Respiratory Respiratory exam: Present: CTAB. Absent: accessory muscle use, rales, rhonchi, wheezes - Cardiovascular Cardiovascular exam: Present: RRR, +S1, +S2. Absent: diastolic murmur, gallop, rubs, systolic murmur - GI/Abdominal GI/Abdominal exam: Present: normal bowel sounds, soft, no peritoneal signs. Absent: distended, tenderness - Extremities Exam Extremities exam: Present: warm, radial pulses palpable and symetrical. Absent : calf tenderness, cyanotic, pedal edema - Neurological Exam Neurological exam: Present: CN II-XII intact, oriented X3, no focal deficits. Absent: pronater drift, facial droop, speech deficit - Skin Skin exam: Present: dry, intact Internal Medicine: Result - Labs CBC & Chem 7: 03/21/17 03:40 03/22/17 09:43 Labs: BMP 03/22/17 09:43 Sodium 138 Potassium 4.7 H Chloride 105 Carbon Dioxide 22 BUN 79 H Creatinine 3.22 H Glucose 172 H Calcium 8.0 L - ABG Interpretation ABG results: PT/INR, D-dimer PT 13.2 Seconds (9.4-12.1) H 03/21/17 03:40 - VTE Documentation of Mechanical Device: Intermittent pneumatic compression device Consult Discharge Plan - Plan Referrals: Beth Ewing CNP [Partnered Physician] - 03/26/17 10:00 am (PLEASE FOLLOW UP WITH YOUR NEW PCP AT [facility]. YOU WILL RECIEVE A NEW PATIENT PACKET IN THE MAIL. PLEASE FILL OUT AND TAKE WITH YOU TO YOUR APPOINTMENT ALONG WITH YOUR INSURANCE CARD AND PHOTO ID AND A LIST OF ANY MEDICATIONS YOU ARE CURRENTLY TAKING. IF YOU HAVE ANY QUESTIONS PLEASE FEEL FREE TO CALL)
[2017-03-22] MEDS ORDERED: Insulin LISPRO 300 UNITS/3 ML VIAL SQ SCH (21:00)
[2017-03-23] MEDS ORDERED: Benzonatate 100 MG CAPSULE PO PRN (00:56)
[2017-03-23 04:14] LABS: Basophils % 0.3 %; Eosinophils # 0.5 K/mcL (0.0-0.6); Eosinophils % 5.2 %; Hematocrit 26.2 % (35.3-44.9); Hemoglobin 7.7 g/dL (11.5-15.4); Immature Granulocytes % 0.4 % (0-4); Lymphocytes # 1.2 K/mcL (0.6-4.6); Lymphocytes % 11.1 %; Mean Corpuscular HGB Conc 29.4 g/dL (31.6-35.5); Mean Corpuscular Hemoglobin 29.1 pg (28.0-33.3); Mean Corpuscular Volume 98.9 fL (83.0-100.0); Mean Platelet Volume 10.5 fL (9.4-12.4); Monocytes # 0.9 K/mcL (0.0-1.3); Monocytes % 9.1 %; Neutrophils # 7.7 K/mcL (1.6-8.9); Platelet Count 202 K/mcL (140-400); Red Blood Count 2.65 M/mcL (3.82-4.97); Red Cell Distribution Width 18.3 % (11.5-14.5); Segmented Neutrophils % 73.9 %
[2017-03-23 04:16] LABS: INR 1.1; Prothrombin Time 11.6 Seconds (9.4-12.1)
[2017-03-23 04:28] LABS: Calcium 8.2 mg/dL (8.6-10.8); Potassium 4.9 mEq/L (3.5-4.5)
[2017-03-23] MEDS: Insulin LISPRO 300 UNITS/3 ML VIAL SQ SCH ×2 (07:59→12:46)
--- NOTE | 2017-03-23 09:01 | Nephrology Progress Note ---
Date of Encounter: 03/23/17 Time of Encounter: 08:50 - Assessment and Plan (1) Acute kidney injury superimposed on CKD Current Visit: No Status: Chronic JULIET superimposed on stage IV CKD in the setting of upper GI bleeding. Patient baseline 2.8, GFR 20. Today's creat3.17. Documented urine output 1650cc. Will continue to monitor. if discharged home, will follow in office in 2-3 weeks with labs. Subjective Principal diagnosis: hemorrhagic shock Interval history: Sitting up in chair, states feeling better. Denies further loose stools Objective - Vital Signs Vital signs: Vital Signs Temp Pulse Resp BP Pulse Ox 03/23/17 07:52 97.9 F 95 18 128/64 94 03/23/17 04:02 98.3 F 106 15 128/70 95 03/22/17 23:46 97.9 F 102 16 144/77 92 03/22/17 19:20 97.9 F 84 16 122/55 97 03/22/17 15:02 98.0 F 77 18 111/68 97 03/22/17 12:59 97.5 F L 79 16 100/62 97 Intake and Output 03/22/17 03/23/17 03/23/17 23:59 07:59 15:59 Intake Total 480 / 480 180 / 180 Output Total 450 / 450 150 / 150 Balance 30 / 30 30 / 30 Intake: Oral 480 / 480 180 / 180 Output: Catheter 450 / 450 150 / 150 Other: Meal Dinner Percent of Meal Consumed 100% Stool Size Moderate Stool Consistency soft Stool Color Black # Bowel Movement Diapers 1 Blood Glucose* 183 201 - General Appearance General appearance: Present: well-developed, well-nourished, appears started age , obese EENT: Present: mucous membranes moist Neck: Present: no JVD Respiratory: Present: clear Cardiology: Present: edema, regular rate, regular rhythm Additional Comments: mild-1+ pitting edema Gastrointestinal: Present: normoactive bowel sounds, no tenderness Integumentary: Present: warm and dry Neurologic: Present: alert and oriented x3 Psychiatric: Present: mood/affect appropriate, cooperative - Lab 03/23/17 03:45 03/23/17 03:45 Most recent lab results Calcium 8.2 mg/dL (8.6-10.8) L 03/23/17 03:45 Phosphorus 5.4 mg/dL (2.3-4.7) H 03/21/17 09:33 Magnesium 1.9 mg/dL (1.6-2.6) 03/21/17 09:33 Urine Creatinine 52 mg/dL 03/20/17 12:22 Urine Total Protein 24 mg/dL (1-14) H 03/20/17 12:22 - VTE Documentation of Mechanical Device: Intermittent pneumatic compression device Consult Discharge Plan - Plan Referrals: Beth Ewing CNP [Partnered Physician] - 03/26/17 10:00 am (PLEASE FOLLOW UP WITH YOUR NEW PCP AT [facility]. YOU WILL RECIEVE A NEW PATIENT PACKET IN THE MAIL. PLEASE FILL OUT AND TAKE WITH YOU TO YOUR APPOINTMENT ALONG WITH YOUR INSURANCE CARD AND PHOTO ID AND A LIST OF ANY MEDICATIONS YOU ARE CURRENTLY TAKING. IF YOU HAVE ANY QUESTIONS PLEASE FEEL FREE TO CALL)
--- NOTE | 2017-03-23 11:04 | Discharge Summary ---
Date of Encounter: 03/23/17 Time of Encounter: 11:00 - Discharge Diagnosis (1) UGI bleed Priority: Primary Status: Acute (2) Acute kidney injury superimposed on CKD Priority: Secondary Status: Chronic (3) Hypertension, uncontrolled Priority: Secondary Status: Acute (4) Atrial fibrillation Priority: Secondary Status: Acute Qualifiers: Atrial fibrillation type: paroxysmal Qualified Code(s): I48.0 - Paroxysmal atrial fibrillation (5) Type 2 diabetes mellitus Priority: Secondary Status: Acute Qualifiers: Diabetes mellitus complication status: without complication Diabetes mellitus terminal clerk insulin use: without alf use Qualified Code(s): E11.9 - Type 2 diabetes mellitus without complications (6) Peptic ulcer disease Priority: Secondary Status: Acute - Discharge Medications Prescriptions: Omeprazole [PriLOSEC] 40 mg PO BIDAC 14 Days Sodium Bicarbonate 650 mg PO BID 14 Days Sucralfate [Carafate] 1 gm PO QIDAC 14 Days Home Medications: Carvedilol [Coreg] 25 mg PO DAILY 02/10/17 [History] Cyanocobalamin (Vitamin B-12) [Vitamin B-12] 100 mcg PO DAILY 02/10/17 [History] Ergocalciferol (VITAMIN D2) [Vitamin D] 800 unit PO DAILY 02/10/17 [History] Linagliptin [Tradjenta] 5 mg PO DAILY 02/10/17 [History] Losartan Potassium [Cozaar] 100 mg PO DAILY 02/10/17 [History] Omeprazole [PriLOSEC] 40 mg PO BIDAC 14 Days 03/23/17 [Rx] Sodium Bicarbonate 650 mg PO BID 14 Days 03/23/17 [Rx] Sucralfate [Carafate] 1 gm PO QIDAC 14 Days 03/23/17 [Rx] Allergies/Adverse Reactions: Allergies Penicillins Allergy (Severe, Verified 03/18/17 22:37) Swelling of Lip/Tongue/Throat Procedures/tests Complete & Pending: Procedures Performed prior 72 hours Category Date Time Status SENTHIL [EV ankle brachial index] Stat Y 03/21/17 14:39 Completed Date of admission: 03/18/17 21:50 Primary care physician: PCP NO Consults: 03/18/17 23:51 Consult to Pulmonology [CONS] Routine Consulting Provider: [facility] Sa[facility]ya Reason for Consult: GI bleed Call Completed: Yes 03/19/17 01:10 Consult to Wound Care [CONS] Routine Reason for Consult: Bilateral foot wounds Call Completed: No 03/19/17 02:41 Consult to Physician [CONS] Routine Consulting Provider: Adolfo Constantino Reason for Consult: GI Bleed Call Completed: Yes 03/19/17 08:45 Consult to Nephrology [CONS] Routine Consulting Provider: Kidney [facility] HT[facility] Alycia ORONA Reason for Consult: baseline CKD stage 4/5, concern for dialysis. Call Completed: Yes 03/20/17 15:22 Consult to Podiatry [CONS] Routine Consulting Provider: Podiatry [facility] Reason for Consult: edema and blisters to bilateral feet dorsal aspect with eschar on the right Time Notified: 15:23 Call Completed: No Discharging clinician: Elvis Jacome Anticipated date of discharge: 03/23/17 - Patient Status Disposition: Home Health Service Condition: Fair Functional capacity at discharge: uses cane/walker Overall status at discharge: patient is back to baseline - Discharge Instructions Follow Up With: Beth Ewing CNP [Partnered Physician] - 03/26/17 10:00 am (PLEASE FOLLOW UP WITH YOUR NEW PCP AT [facility]. YOU WILL RECIEVE A NEW PATIENT PACKET IN THE MAIL. PLEASE FILL OUT AND TAKE WITH YOU TO YOUR APPOINTMENT ALONG WITH YOUR INSURANCE CARD AND PHOTO ID AND A LIST OF ANY MEDICATIONS YOU ARE CURRENTLY TAKING. IF YOU HAVE ANY QUESTIONS PLEASE FEEL FREE TO CALL) Additional Instructions: GI Nephrology wht Dr. Orona in 3 weeks. obtain bmp prior to visit. PCP within 1 week Hold coumadin and aspirin. - Diet and Activity Activity: increase activity as tolerated Diet: advance to your usual diet Interval History: Ms. Calvillo is a 62 year old female with history of A. fib and gastric ulcers presents from outside hospital with hematemesis. Patient states that half ago she was seen at this facility had an upper endoscopy which revealed multiple nonbleeding gastric ulcers. Patient then states that approximately 2 weeks ago she started on antibiotic therapy with an unknown antibiotic for pneumonia which she stopped several days prior to arrival. Patient states that she was also told to stop her Coumadin about 3 days ago because of multiple bruises on her back. Patient is unsure when her last INR was. Patient states today she was seen by home health and the patient had several episodes of vomiting of dark red blood. She also reports loose stools but did not look at the stools to see if there is any black stools or bloody stools. She reports mild shortness of breath. She denies fever, chills, chest pain. Hospital course: Ms. Calvillo is a 62 year old female initially admitted due to shock secondary to acute blood loss anemia with a lactic acid of 9.2 upon admission. She did receive aggressive fluid therapy along with blood transfusion. Her lowest hemoglobin here has been 5.8. This patient was admitted to [place] as a direct admission from [facility], at that facility her hemoglobin was reported at 3.8 g. She has received a total of 4 units of PRBCs and 2 units of FFP during this admission. Today her hemoglobin is 7.7 and the patient does not have any active bleeding at this point. She has refused to undergo endoscopic studies during this admission in spite of multiple conversations with different providers about the importance of endoscopic studies in the setting of hemorrhagic anemia. Note, the patient was on anticoagulation with Coumadin, she was also recently on antibiotics which could have potentially alter the metabolism of the Coumadin, upon admission the INR was 2 regardless she did receive vitamin K in light of active bleeding and severe anemia along with fresh frozen plasma. Coumadin has been held since admission. She was initially managed in the intensive care unit. She has been disabled since admission, as stated above she has refused to undergo endoscopic of stones multiple times. She did have a recent EGD in which a normal esophagus, nonbleeding gastric ulcers with no stigmata of bleeding and a normal examined duodenum were found. The patient was on PPIs and Carafate prior to this admission. The recommendation was to repeat the endoscopy in 2 months. She does have underlying chronic kidney disease stage IV which got worse after this event of GI bleeding. The improvement of her hemoglobin after blood transfusions has improved her kidney function as well. She was followed by our nephrology team while in house. Recommendation is to follow-up as outpatient in 2 weeks for further recommendations. At this point in light of recent GI bleeding massively or anemia we will stop the anticoagulation and hold the aspirin, this would be reevaluated by the patient's primary care physician in the outpatient setting. She will be discharged home today, she needs home health services, she was explained in detail about the plan, she expressed understanding. We will discharge her on PPIs and Carafate by mouth. Avoid nephrotoxic agents, follow-up with nephrology, gastroenterology and her primary care physician. - Time Spent with Patient Total time spent providing and/or coordinating discharge services: - Constitutional Vitals: Temp Pulse Resp BP Pulse Ox 97.9 F 95 18 128/64 94 03/23/17 07:52 03/23/17 07:52 03/23/17 07:52 03/23/17 07:52 03/23/17 07:52 General appearance: Present: cooperative, A&O X 3, pleasant, no acute distress, obese - Head Head exam: Present: atraumatic, normocephalic - Eye Eye exam: Present: PERRL, conjuntiva pink, sclera anicteric Pupils: Present: PERRL - Neck Neck exam general surgery: Present: supple, trachea midline. Absent: lymphadenopathy - Respiratory Respiratory exam: Present: CTAB. Absent: accessory muscle use, rales, rhonchi, wheezes - Cardiovascular Cardiovascular exam: Present: RRR, +S1, +S2. Absent: diastolic murmur, gallop, rubs, systolic murmur - GI/Abdominal GI/Abdominal exam: Present: normal bowel sounds, soft, no peritoneal signs. Absent: distended, tenderness - Extremities Exam Extremities exam: Present: warm, radial pulses palpable and symetrical. Absent : calf tenderness, cyanotic, pedal edema - Neurological Exam Neurological exam: Present: CN II-XII intact, oriented X3, no focal deficits. Absent: pronater drift, facial droop, speech deficit - Skin Skin exam: Present: dry, intact - VTE Documentation of Mechanical Device: Intermittent pneumatic compression device
--- NOTE | 2017-03-23 11:15 | Physician Discharge Referral ---
Home Health/Hosp Referral Info Transfer to: Home Health - Diagnosis (1) UGI bleed Status: Acute (2) Acute kidney injury superimposed on CKD Status: Chronic (3) Hypertension, uncontrolled Status: Acute (4) Atrial fibrillation Status: Acute (5) Type 2 diabetes mellitus Status: Acute (6) Peptic ulcer disease Status: Acute - Respiratory Orders Oxygen / L per min (2-3) Smoking Cessation: Smoking cessation has been advised. For more information, call the [place] Tobacco Quit Line at 9-799-LKPF-NOW. - Diet/Nutrition Diet/Nutrition Orders: Renal - Activity Activity Orders: Ambulate - Services Needed Following services are medically necessary services: Nursing, Home Health Aide, Physical Therapy - Transfer Medications Prescriptions: Omeprazole [PriLOSEC] 40 mg PO BIDAC 14 Days Sodium Bicarbonate 650 mg PO BID 14 Days Sucralfate [Carafate] 1 gm PO QIDAC 14 Days Home Medications: Carvedilol [Coreg] 25 mg PO DAILY 02/10/17 [History] Cyanocobalamin (Vitamin B-12) [Vitamin B-12] 100 mcg PO DAILY 02/10/17 [History] Ergocalciferol (VITAMIN D2) [Vitamin D] 800 unit PO DAILY 02/10/17 [History] Linagliptin [Tradjenta] 5 mg PO DAILY 02/10/17 [History] Losartan Potassium [Cozaar] 100 mg PO DAILY 02/10/17 [History] Omeprazole [PriLOSEC] 40 mg PO BIDAC 14 Days 03/23/17 [Rx] Sodium Bicarbonate 650 mg PO BID 14 Days 03/23/17 [Rx] Sucralfate [Carafate] 1 gm PO QIDAC 14 Days 03/23/17 [Rx] Allergies/Adverse Reactions: Allergies Penicillins Allergy (Severe, Verified 03/18/17 22:37) Swelling of Lip/Tongue/Throat Certification: Further, I certify that my clinical findings support that this patient is homebound (i.e. absences from home require considerable and taxing effort and are for medical reasons or baptism services or infrequently or short duration when for other reasons) because: Homebound Reason: Patient requires assistance of a person or device to safely leave home, Leaving home requires considerable and taxing effort due to condition, Severity of cardiac or pulmonary status limits activity tolerance Attestation: My signature below is to certify that this patient is under my care and that I, or nurse practitioner, or a physician's assistant store leader working with me, has a face-to -face encounter with this patient.
[2017-03-23 12:48] VITALS: BP 118/67
== END 2017-03-23 14:28 | disposition home health service (06) | DRG 812 ==
LOC: SUATTDRO 21:50 → ICNU 21:50 → 2ANU 03-20 12:09 → UNDODISIN 03-23 13:08
PROVIDERS: ADMIT Hospitalist; ATTEND Internal Medicine